=== PATIENT | female | born 1995 | race Hispanic/Latino ===

== ENCOUNTER 2018-01-21 21:20 | Emergency (ER) | payer OTHER ==
--- OUTSIDE RECORDS SUMMARY | 2018-01-21 21:23 | XMS REPORT ---
:1995 Author Organization eClinicalWorks Care Team Providers Name Role Phone Alice Nesbitt Provider Role Unavailable Allergies No Known Allergies Problems Problem Type Condition Code Onset Dates Condition Status Problem Desire for Z31.9 Active Problem BMI 45.0-49.9, adult Z68.42 Active Problem Irregular menses N92.6 Active Problem Influenza A J10.1 Active Problem Fever and chills R50.9 Active Problem Influenza B J10.1 Active Medications No Known Medications Results No Known Results Summary Purpose eClinicalWorks Submission
--- OUTSIDE RECORDS SUMMARY | 2018-01-21 21:23 | XMS REPORT ---
:1995 Author Organization eClinicalWorks Care Team Providers Name Role Phone Alice Nesbitt Provider Role Unavailable Allergies, Adverse Reactions, Alerts Substance Reaction Event Type N.K.D.A. Info Not Available Non Drug Allergy Problems Problem Type Condition Code Onset Dates Condition Status Assessment BMI 45.0-49.9, adult Z68.42 Active Problem Desire for Z31.9 Active Problem BMI 45.0-49.9, adult Z68.42 Active Problem Irregular menses N92.6 Active Problem Influenza A J10.1 Active Assessment Irregular menses N92.6 Active Problem Fever and chills R50.9 Active Problem Influenza B J10.1 Active Medications Medication Code Code Instructions Start End Date Status Dosage System Date Aurelio [facility] [id number] 1-20 MG-MCG Active 1 tablet 1/20 Orally Once a day Results No Known Results Summary Purpose eClinicalWorks Submission
--- OUTSIDE RECORDS SUMMARY | 2018-01-21 21:23 | XMS REPORT ---
:1995 Author Organization eClinicalWorks Care Team Providers Name Role Phone Alice Nesbitt Provider Role Unavailable Allergies, Adverse Reactions, Alerts Substance Reaction Event Type N.K.D.A. Info Not Available Non Drug Allergy Problems Problem Type Condition Code Onset Dates Condition Status Assessment Irregular menses N92.6 Active Assessment BMI 45.0-49.9, adult Z68.42 Active Assessment Screening for STDs (sexually Z11.3 Active transmitted diseases) Assessment Desire for Z31.9 Active Problem Desire for Z31.9 Active Problem BMI 45.0-49.9, adult Z68.42 Active Problem Irregular menses N92.6 Active Problem Influenza A J10.1 Active Assessment Well woman exam with routine Z01.419 Active gynecological exam Problem Fever and chills R50.9 Active Problem Influenza B J10.1 Active Medications No Known Medications Results No Known Results Summary Purpose eClinicalWorks Submission
--- OUTSIDE RECORDS SUMMARY | 2018-01-21 21:23 | XMS REPORT ---
:1995 Author Organization eClinicalWorks Care Team Providers Name Role Phone Alice Nesbitt Provider Role Unavailable Allergies, Adverse Reactions, Alerts Substance Reaction Event Type N.K.D.A. Info Not Available Non Drug Allergy Problems Problem Type Condition Code Onset Dates Condition Status Assessment Desire for Z31.9 Active Assessment Irregular menses N92.6 Active Assessment BMI 45.0-49.9, adult Z68.42 Active Problem Desire for Z31.9 Active Problem BMI 45.0-49.9, adult Z68.42 Active Problem Irregular menses N92.6 Active Problem Influenza A J10.1 Active Problem Fever and chills R50.9 Active Problem Influenza B J10.1 Active Medications Medication Code Code Instructions Start End Date Status Dosage System Date Aurelio [facility] [id number] 1-20 MG-MCG Active 1 tablet 1/20 Orally Once a day Results No Known Results Summary Purpose [employer] Submission
[2018-01-21 22:19] LABS: Absolute Lymphocytes (CBC) 2.8 K/uL (0.7-4.9); Absolute Monocytes 0.4 K/uL (0.1-1.3); Absolute Neutrophil 5.7 K/uL (1.8-8.0); Basophils % 0.4 % (0-1.3); Eosinophils % 1.2 % (0-4.4); Hematocrit 42.7 % (36.0-45.0); Lymphocytes % 31.1 % (15.3-44.8); MCH 31.5 pg (27.0-35.0); MCV 90.1 fL (80-100); MPV 7.3 fL (7.6-11.3); Monocytes % 4.9 % (3.3-12.3); RBC Red Blood Cell Count 4.74 M/uL (3.86-4.86)
[2018-01-21 22:47] LABS: BUN Blood Urea Nitrogen 9 mg/dL (7-18); Bicarbonate 26 mmol/L (21-32); Glucose Level 105 mg/dL (74-106); Potassium 3.5 mmol/L (3.5-5.1); Sodium Level 141 mmol/L (136-145); Troponin I < 0.02 ng/mL (0.0-0.045)
[2018-01-21 23:18] LABS: Urine Blood NEGATIVE (NEG); Urine Glucose NEGATIVE (NEG); Urine Protein NEGATIVE (NEG); Urine Specific Gravity 1.025 (1.005-1.030); Urine pH 6.5 (5.0-7.0)
[2018-01-21] MEDS ORDERED: KETOROLAC 30 MG/ML INJ ONE (23:46)
--- NOTE | 2018-01-22 00:21 | ER ---
Nurse's Notes [facility] Name: Anum Martinez Age: 22 yrs Sex: Female : 1995 Arrival Date: 01/21/2018 Time: 21:21 Bed 25 Private MD: Greyson Pace Diagnosis: Chest pain, unspecified Presentation: 01/21 21:27 Presenting complaint: Patient states: She started having chest pain, shortness of aj1 breath, nausea, and tingling in her right arm that started 30 minutes ago. Breath sounds CTA. Denies cough, congestion, fever. Reports that her pain started about 15 minutes after eating dinner. Transition of care: patient was not received from another setting of care. Onset of symptoms was January 21, 2018 at 21:00. Risk Assessment: Do you want to hurt yourself or someone else? Patient reports no desire to harm self or others. Initial Sepsis Screen: Does the patient meet any 2 criteria? HR > 90 bpm. No. Patient's initial sepsis screen is negative. Does the patient have a suspected source of infection? No. Patient's initial sepsis screen is negative. Care prior to arrival: None. 21:27 Method Of Arrival: Ambulatory aj1 21:27 Acuity: NATALI 3 aj1 Triage Assessment: 21:28 General: Appears uncomfortable, Behavior is cooperative, anxious, crying. Pain: aj1 Complains of pain in mid-sternal area Pain radiates to right arm Pain currently is 7 out of 10 on a pain scale. Quality of pain is described as tightness, numbess Pain began 30 min ago. Alleviated by nothing. Aggravated by nothing. Neuro: Level of Consciousness is awake, alert, obeys commands. Cardiovascular: Reports chest pain, nausea, palpitations, shortness of breath, Heart tones S1 S2 present Patient's skin is warm and dry. Chest pain is described as Pain is 7 out of 10 on a pain scale. quality is tightness is located in substernal area radiates to right arm(s) began 30 minutes prior to arrival. Respiratory: Reports shortness of breath Airway is patent Respiratory effort is even, unlabored, Respiratory pattern is regular, symmetrical, Breath sounds are clear bilaterally. GI: Reports nausea. ANALYST: : LMP N/A - Irregular menses aj1 Historical: - Allergies: :28 No Known Allergies; aj1 - Home Meds: 21:28 None [Active]; aj1 - PMHx: 21:28 None; aj1 - PSHx: 21:28 None; aj1 - Immunization history:: Flu vaccine is up to date. - Social history:: Smoking status: Patient/guardian denies using tobacco. - Ebola Screening: : Patient denies travel to an Ebola-affected area in the 21 days before illness onset. - Family history:: not pertinent. - Hospitalizations: : No recent hospitalization is reported. Screenin:59 Abuse screen: Denies threats or abuse. Denies injuries from another. Nutritional kr2 screening: No deficits noted. Tuberculosis screening: No symptoms or risk factors identified. Fall Risk None identified. Assessment: 21:54 General: Appears in no apparent distress. uncomfortable, obese, well groomed, Behavior kr2 is cooperative, appropriate for age, anxious. Pain: Complains of pain in mid-sternal area Pain radiates to chest and right arm Pain currently is 6 out of 10 on a pain scale. Quality of pain is described as pressure, sharp, squeezing, Is continuous, Alleviated by nothing. Aggravated by increased activity. Pain: Pain began suddenly. Neuro: Level of Consciousness is awake, alert, obeys commands, Oriented to person, place, time, situation, Appropriate for age. Cardiovascular: Heart tones S1 S2 Capillary refill < 3 seconds in bilateral fingers Patient's skin is warm and dry. Rhythm is sinus rhythm. Respiratory: Airway is patent Respiratory effort is even, labored, Respiratory pattern is regular, symmetrical, Breath sounds are clear bilaterally. the patient has mild shortness of breath. Respiratory: Reports "It feels like I can't take a deep breath and like I have to gasp". GI: Abdomen is non-distended, obese, Patient currently denies nausea. : Urine is clear. EENT: Oral mucosa is moist. Derm: Skin is intact, is healthy with good turgor, Skin is pink, warm \\T\\ dry. Musculoskeletal: Circulation, motion, and sensation intact. 22:30 Reassessment: Patient appears in no apparent distress at this time. Patient and/or kr2 family updated on plan of care and expected duration. Pain level reassessed. Patient is alert, oriented x 3, equal unlabored respirations, skin warm/dry/pink. 23:47 Reassessment: Patient appears in no apparent distress at this time. Patient and/or kr2 family updated on plan of care and expected duration. Pain level reassessed. Patient is alert, oriented x 3, equal unlabored respirations, skin warm/dry/pink. Patient states that her breathing is more comfortable but is still having pressure and tightness in the chest, medicated as ordered for pain, see MAR. 01/22 00:21 Reassessment: Patient appears in no apparent distress at this time. Patient and/or kr2 family updated on plan of care and expected duration. Pain level reassessed. Patient is alert, oriented x 3, equal unlabored respirations, skin warm/dry/pink. Patient states feeling better. 00:31 Reassessment: Patient appears in no apparent distress at this time. Patient and/or kr2 family updated on plan of care and expected duration. Pain level reassessed. Patient is alert, oriented x 3, equal unlabored respirations, skin warm/dry/pink. Patient able to breathe comfortably on room air and maintain saturations above 95% Patient denies pain at this time. Patient states feeling better. Vital Signs: 01/21 21:28 BP 141 / 89; Pulse 97; Resp 20; Temp 97.9; Pulse Ox 99% on R/A; Weight 92.53 kg (R); aj1 Height 4 ft. 10 in. (147.32 cm) (R); Pain 7/10; 23:44 BP 130 / 77; Pulse 80; Resp 16; Pulse Ox 99% on 1 lpm NC; kr2 01/22 00:31 BP 107 / 86; Pulse 96; Resp 17; Pulse Ox 99% on R/A; kr2 01/21 21:28 Body Mass Index 42.64 (92.53 kg, 147.32 cm) aj1 ED Course: 01/21 21:21 Patient arrived in ED. es 21:23 Greyson Pace MD is Private Physician. es 21:28 Triage completed. aj1 21:28 Arm band placed on Patient placed in an exam room. aj1 21:33 Maxwell Meadows MD is Attending Physician. rn 21:35 Missed attempt(s): 22 gauge in left forearm. Bleeding controlled, band aid applied, jp3 catheter tip intact. 21:45 Initial lab(s) drawn, by me, sent to lab. Urine collected: clean catch specimen, clear, jp3 kristy colored. Inserted saline lock: 22 gauge in right forearm, using aseptic technique. Blood collected. 21:48 EKG done, by ED staff, reviewed by Maxwell Meadows MD. Oxygen administration via nasal kr2 cannula \\T\\ 1L/min. 21:59 Patient has correct armband on for positive identification. Bed in low position. Call kr2 light in reach. Side rails up X 1. Adult w/ patient. color television console monitor on. Pulse ox on. NIBP on. Door closed. Warm blanket given. Head of bed elevated. 22:04 Chio Broussard, RN is Primary Nurse. kr2 22:32 Troponin I Sent. jp3 22:32 Basic Metabolic Panel Sent. jp3 22:33 D-Dimer Sent. jp3 23:38 X-ray completed. Portable x-ray completed in exam room. Patient tolerated procedure kw well. Radiology exam delayed due to [employer] DOWN. 23:40 XRAY Chest (1 view) In Process Unspecified. EDMS 01/22 00:21 Greyson Pace MD is Referral Physician. rn 00:32 No provider procedures requiring assistance completed. IV discontinued, intact, kr2 bleeding controlled, No redness/swelling at site. Pressure dressing applied. Administered Medications: 01/21 23:42 Drug: TORadol 30 mg Route: IVP; Site: right forearm; kr2 01/22 00:15 Follow up: Response: No adverse reaction; Pain is decreased kr2 Outcome: 00:21 Discharge ordered by MD. rn 00:32 Discharged to home ambulatory, with family. kr2 00:32 Condition: good 00:32 Discharge instructions given to patient, Instructed on discharge instructions, follow up and referral plans. Demonstrated understanding of instructions, follow-up care. 00:33 Patient left the ED. kr2 Signatures: Dispatcher [employer] EDVT Malia Cuevas RN RN aj1 Chitra Coleman Roman, MD MD rn Whitley, Kimberlee kw Reaves, Karey, RN RN kr2 French Pearl jp3 Corrections: (The following items were deleted from the chart) 01/21 21:59 21:54 General: Appears in no apparent distress. uncomfortable, obese, well groomed, kr2 Behavior is calm, cooperative, appropriate for age, kr2 23:46 23:44 BP 184 / 110; Pulse 84bpm; Resp 16bpm; Pulse Ox 99% RA; kr2 kr2 23:47 21:48 Patient maintains SpO2 saturation greater than 95% on room air. kr2 kr2
--- NOTE | 2018-01-22 00:21 | EDPHYS ---
Physician Documentation [facility] Name: Anum Martinez Age: 22 yrs Sex: Female : 1995 Arrival Date: 01/21/2018 Time: 21:21 Bed 25 Private MD: Greyson Pace ED Physician Maxwell Meadows HPI: 01/21 22:50 This 22 yrs old Female presents to ER via Ambulatory with complaints of Chest rn Pain, Shortness Of Breath, TINGLING IN ARM. 22:50 The patient or guardian reports chest pain that is located primarily in the anterior rn chest wall, right. The pain radiates to the right arm. Associated signs and symptoms: Pertinent positives: shortness of breath, Pertinent negatives: abdominal pain, cough, lightheadedness, nausea, near syncope, palpitations, syncope, vomiting. The chest pain is described as a heaviness. Duration: The patient or guardian reports a single episode, that is still ongoing. Modifying factors: The symptoms are alleviated by nothing. the symptoms are aggravated by palpation of area. Severity of pain: At its worst the pain was mild in the emergency department the pain is unchanged. The patient has not experienced similar symptoms in the past. REports at rest, sudden onset of right sided chest pressure, feels heavy, has tingling down right arm, no famhx of early cardiac problems, no fever/cough, feels tight and trouble breathing, no smoking, no hx of asthma. NO trauma. . 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 - Social history:: Smoking status: Patient/guardian denies using tobacco. - Ebola Screening: : Patient denies travel to an Ebola-affected area in the 21 days before illness onset. - Family history:: not pertinent. - Hospitalizations: : No recent hospitalization is reported. ROS: 22:50 Constitutional: Negative for fever, chills, and weight loss, Eyes: Negative for injury, rn pain, redness, and discharge, Neck: Negative for injury, pain, and swelling, Cardiovascular: Negative for palpitations, and edema, Respiratory: Negative for cough, wheezing, and pleuritic chest pain, Abdomen/GI: Negative for abdominal pain, nausea, vomiting, diarrhea, and constipation, MS/Extremity: Negative for injury and deformity, Skin: Negative for injury, rash, and discoloration, Neuro: Negative for headache, weakness, and seizure. Exam: 22:39 ECG was reviewed by the Attending Physician. rn 22:50 Constitutional: This is a well developed, well nourished patient who is awake, alert, rn appears anxious Head/Face: Normocephalic, atraumatic. Eyes: Pupils equal round and reactive to light, extra-ocular motions intact. Lids and lashes normal. Conjunctiva and sclera are non-icteric and not injected. Cornea within normal limits. Periorbital areas with no swelling, redness, or edema. Neck: Trachea midline, no thyromegaly or masses palpated, and no cervical lymphadenopathy. Supple, full range of motion without nuchal rigidity, or vertebral point tenderness. No Meningismus. Chest/axilla: + reproducible right sided chest tenderness, no crepitus Cardiovascular: Regular rate and rhythm with a normal S1 and S2. No gallops, murmurs, or rubs. Normal PMI, no JVD. No pulse deficits. Respiratory: Lungs have equal breath sounds bilaterally, clear to auscultation and percussion. No rales, rhonchi or wheezes noted. No increased work of breathing, no retractions or nasal flaring. Abdomen/GI: Soft, non-tender, with normal bowel sounds. No distension or tympany. No guarding or rebound. No evidence of tenderness throughout. MS/ Extremity: Pulses equal, no cyanosis. Neurovascular intact. Full, normal range of motion. Equal circumference. Neuro: Awake and alert, GCS 15, oriented to person, place, time, and situation. Cranial nerves II-XII grossly intact. Motor strength 5/5 in all extremities. Sensory grossly intact. Vital Signs: 21:28 BP 141 / 89; Pulse 97; Resp 20; Temp 97.9; Pulse Ox 99% on R/A; Weight 92.53 kg (R); aj1 Height 4 ft. 10 in. (147.32 cm) (R); Pain 7/10; 23:44 BP 130 / 77; Pulse 80; Resp 16; Pulse Ox 99% on 1 lpm NC; kr2 01/22 00:31 BP 107 / 86; Pulse 96; Resp 17; Pulse Ox 99% on R/A; kr2 01/21 21:28 Body Mass Index 42.64 (92.53 kg, 147.32 cm) aj1 MDM: 01/21 21:33 Patient medically screened. rn 01/22 00:19 Differential diagnosis: acute pericarditis, anxiety, coronary artery disease chest wall rn pain, costochondritis, esophagitis, gastritis, gastroesophageal reflux disease (GERD), pericarditis, pleurisy, pneumothorax. Data reviewed: vital signs, nurses notes, lab test result(s), EKG, radiologic studies, plain films, and as a result, I will discharge patient. Counseling: I had a detailed discussion with the patient and/or guardian regarding: the historical points, exam findings, and any diagnostic results supporting the discharge/admit diagnosis, lab results, radiology results, the need for outpatient follow up, to return to the emergency department if symptoms worsen or persist or if there are any questions or concerns that arise at home. Special discussion: Based on the patient's history, exam, and Dx evaluation, there is no indication for emergent intervention or inpatient Tx. It is understood by the patient/guardian that if the Sx's persist or worsen they need to return immediately for re-evaluation. I discussed with the patient/guardian in detail that at this point there is no indication for admission to the hospital. It is understood, however, that if the symptoms persist or worsen the patient needs to return immediately for re-evaluation. Based on the history and exam findings, there is no indication for further emergent testing or inpatient evaluation. I discussed with the patient/guardian the need to see the hot mill roller for further evaluation of the symptoms. I discussed with the patient/guardian the need to see the primary care provider for further evaluation of the symptoms. ED course: Pt improved, neg w/u here, normal trop/cxr/ecg, will dc home with ibuprofen and pcp f/u. Return precautions given and understood.. 01/21 22:03 Order name: Urine Dipstick--Ancillary (enter results); Complete Time: 23:31 mw2 01/21 22:03 Order name: Urine --Ancillary (enter results); Complete Time: 23:31 mw2 01/21 21:41 Order name: IV Start; Complete Time: 22:04 rn 01/21 21:41 Order name: EKG; Complete Time: 22:55 rn 01/21 21:41 Order name: XRAY Chest (1 view) 01/21 22:14 Order name: Basic Metabolic Panel; Complete Time: 22:49 EDMS 01/21 22:14 Order name: Troponin I; Complete Time: 22:49 EDMT 01/21 22:14 Order name: CBC with Automated Diff; Complete Time: 22:49 EDMS 01/21 22:14 Order name: D-Dimer; Complete Time: 22:49 EDMT 01/21 21:41 Order name: EKG - Nurse/Tech; Complete Time: 22:04 rn 01/21 21:41 Order name: Urine Dipstick-Ancillary (obtain specimen); Complete Time: 22:04 rn 01/21 21:41 Order name: Urine Test (obtain specimen); Complete Time: 22:04 rn EC/21 22:39 Rate is 86 beats/min. Rhythm is regular. QRS [place] is Normal. CO interval is normal. QRS rn interval is normal. QT interval is normal. No Q waves. T waves are Normal. No ST changes noted. Clinical impression: Normal ECG. Interpreted by me. Administered Medications: 23:42 Drug: TORadol 30 mg Route: IVP; Site: right forearm; kr2 01/22 00:15 Follow up: Response: No adverse reaction; Pain is decreased kr2 Disposition: 01/22/18 00:21 Discharged to Home. Impression: Chest pain, unspecified. - Condition is Stable. - Discharge Instructions: Nonspecific Chest Pain, Pain Without a Known Cause. - Medication Reconciliation Form, Thank You Letter, Antibiotic Education, Prescription Opioid Use, Work release form form. - Follow up: Greyson Pace MD; When: 2 - 3 days; Reason: Recheck today's complaints, Re-evaluation by your physician. - Problem is new. - Symptoms have improved. Signatures: Dispatcher [employer] EDMS Malia Cuevas RN RN aj1 Maxwell Meadows MD MD rn Reaves, Karey, RN RN kr2 Corrections: (The following items were deleted from the chart) 01/21 23:16 22:55 CBC+H.LAB.BRZ ordered. EDMT EDMS 23:16 22:55 BASIC METABOLIC PANEL+C.LAB.BRZ ordered. EDMT EDMS 23:16 22:55 TROPONIN (EMERG DEPT USE ONLY)+C.LAB.BRZ ordered. EDMT EDMS 23:16 22:55 D-DIMER+COAG.LAB.BRZ ordered. [facility] EDMT 01/22 00:33 00:21 01/22/2018 00:21 Discharged to Home. Impression: Chest pain, unspecified. kr2 Condition is Stable. Forms are Medication Reconciliation Form, Thank You Letter, Antibiotic Education, Prescription Opioid Use. Follow up: Greyson Pace; When: 2 - 3 days; Reason: Recheck today's complaints, Re-evaluation by your physician. Problem is new. Symptoms have improved. rn
[2018-01-22 01:13] VITALS: TEMP 97.9; O2SAT 99
[2018-01-22 01:16] VITALS: BP 107/86
--- NOTE | 2018-01-22 07:58 | RAD REPORT ---
EXAM DESCRIPTION: RAD - Chest Single View - 01/21/2018 11:42 pm CLINICAL HISTORY: Chest pain, shortness of breath COMPARISON: None. TECHNIQUE: AP portable chest image was obtained 2325 hours . FINDINGS: Lungs are clear. Heart and vasculature are normal. No measurable pleural effusion and no p neumothorax. No acute bony abnormality seen. No acute aortic findings suspected. IMPRESSION: No acute cardiopulmonary process.
--- NOTE | 2018-01-22 09:02 | EKG ---
Test Date: 2018-01-21 Test Time: 21:46:13 Roastmaster: HIPOLITO MEASUREMENT RESULTS: Intervals: Rate: 86 IL: 136 QRSD: 76 QT: 354 QTc: 423 [place]: P: 44 IL: 136 QRS: 67 T: 64 INTERPRETIVE STATEMENTS: Normal sinus rhythm Normal ECG No previous ECG available for comparison Electronically Signed On 01-22-18 09:01:33 CDT by Adalberto Figueroa
== END 2018-01-22 00:33 | disposition home or self-care (01) ==
LOC: ER 21:20
DX: R07.9 Chest pain, unspecified (principal)
CPT/HCPCS: 36415; 71045; 80048; 81003; 81025; 84484; 85025; 85379; 93005; 96374; 99285

== ENCOUNTER 2020-06-07 17:53 | Emergency (ER) | payer OTHER ==
--- OUTSIDE RECORDS SUMMARY | 2020-06-07 17:55 | XMS REPORT | Continuity of Care Document ---
:1995 Author Organization [facility] t Address [address] [place] [address] Care Team Providers Name Role Phone Peg MOBLEY Attending Clinician Haider Case MD Attending Clinician Problems Condition Condition Condition Status Onset Resolution Last Treating Co mments Source Name Details Category Date Date Treatment Clinician Date Irregular Irregular Problem Active [facility] BMI BMI Problem Active [facility] 45.0-49.9, 45.0-49.9, Osiris kes - adult adult [facility] ent [facility] Desire for Desire for Problem Active [facility] Influenza Influenza Problem Active [facility] Fever and Fever and Problem Active [facility] ch[facility]ills [facility]ics Allergies, Adverse Reactions, Alerts This patient has no known allergies or adverse reactions. Medications Ordered Filled Start Stop Current Ordering Indication Dosage Frequency Signature Comments Components Source Medication Medication Date Date Medication? Clinician (SIG) Name Name Loestrin Fe Loestrin Fe Yes Alice [address] [facility] [address] 04/22 04/22 [facility] Procedures This patient has no known procedures. Encounters Start End Encounter Admission Attending Care Care Encounter Source Date/Time Date/Time Type Type Clinicians Facility Department ID 2020-06-04 2020-06-04 Telephone Peg [facility] [id number] 00:00:00 00:00:00 Lucille Tay [id number] [place] [id number] Professio [id number] [address] 2020-06-03 2020-06-03 Office Krissy Case [facility] [id number] 12:36:02 13:49:04 Visit Haider Tay [id number] [place] [id number] Professio [id number] [address] 2017-12-01 2017-12-01 [facility] [id number] 10:30:00 10:30:00 [facility] 2017-08-04 2017-08-04 [facility] [id number] 11:00:00 11:00:00 [facility] 2017-08-03 2017-08-03 [facility] [id number] 15:50:00 15:50:00 [facility] 2017-07-27 2017-07-27 [facility] [id number] 15:00:00 15:00:00 t [facility] Results This patient has no known results.
[2020-06-07 21:01] LABS: SARS-COV-2 RT PCR POSITIVE (NEGATIVE)
--- NOTE | 2020-06-07 21:09 | ER ---
Nurse's Notes [facility] Name: Anum Martinez Age: 24 yrs Sex: Female : 1995 Arrival Date: 06/07/2020 Time: 18:05 Bed 15 Private MD: Greyson Pace Diagnosis: Coronavirus infection, unspecified Presentation: 06/07 18:40 Chief complaint: Patient states: I was exposed to family who were tested positive for ca1 covid. Symptoms started 06/05/2020. s/s runny nose, cough, congestion, headache, body aches, chills. Coronavirus screen: Client denies travel out of the [place] in the last 14 days. chills, congestion, cough unrelated to allergies, headache, muscle pain, sore throat, Client presents with at least one sign or symptom that may indicate coronavirus-19. Standard/surgical mask placed on the client. Provider contacted for isolation considerations. Ebola Screen: Patient negative for fever greater than or equal to 101.5 degrees Fahrenheit, and additional compatible Ebola Virus Disease symptoms Patient denies exposure to infectious person. Patient denies travel to an Ebola-affected area in the 21 days before illness onset. No symptoms or risks identified at this time. Initial Sepsis Screen: Does the patient meet any 2 criteria? No. Patient's initial sepsis screen is negative. Does the patient have a suspected source of infection? No. Patient's initial sepsis screen is negative. Risk Assessment: Do you want to hurt yourself or someone else? Patient reports no desire to harm self or others. Onset of symptoms was June 07, 2020. 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 - Social history:: Smoking status: Patient denies any tobacco usage or history of. Screenin:26 Abuse screen: Denies threats or abuse. Denies injuries from another. Nutritional mg2 screening: No deficits noted. Tuberculosis screening: No symptoms or risk factors identified. Fall Risk None identified. Assessment: 19:25 General: Appears in no apparent distress. comfortable, Behavior is calm, cooperative. mg2 Pain: Denies pain. Neuro: Level of Consciousness is awake, alert, obeys commands, Oriented to person, place, time, situation. Cardiovascular: Capillary refill < 3 seconds Patient's skin is warm and dry. Respiratory: Airway is patent Respiratory effort is even, unlabored, Respiratory pattern is regular, symmetrical. Respiratory: Reports cough that is. GI: No signs and/or symptoms were reported involving the gastrointestinal system. : No signs and/or symptoms were reported regarding the genitourinary system. EENT: No signs and/or symptoms were reported regarding the EENT system. Derm: Skin is intact, is healthy with good turgor, Skin is pink, warm \T\ dry. normal. Musculoskeletal: Circulation, motion, and sensation intact. Capillary refill < 3 seconds. 20:30 Reassessment: Patient appears in no apparent distress at this time. Patient and/or mg2 family updated on plan of care and expected duration. Pain level reassessed. Vital Signs: 18:40 BP 128 / 82; Pulse 106; Resp 19 S; Temp 97.6(TE); Pulse Ox 100% on R/A; Weight 93.44 kg ca1 (R); Height 4 ft. 10 in. (147.32 cm) (R); Pain 0/10; 20:30 BP 122 / 80; Pulse 95; Resp 18; Temp 98; Pulse Ox 100% on R/A; mg2 18:40 Body Mass Index 43.05 (93.44 kg, 147.32 cm) ca1 ED Course: 18:05 Patient arrived in ED. am2 18:06 Greyson Pace MD is Private Physician. am2 18:10 [facility]C [facility] kb 18:10 Eliseo Carreno MD is Attending Physician. kb 18:42 Triage completed. ca1 18:42 Arm band placed on right wrist. ca1 18:58 Flu Sent. ca1 19:10 Thor Walsh, SERG is Primary Nurse. mg2 19:26 Patient has correct armband on for positive identification. Pulse ox on. NIBP on. Door mg2 closed. 19:26 No provider procedures requiring assistance completed. Patient did not have IV access mg2 during this emergency room visit. Administered Medications: No medications were administered Outcome: 21:08 Discharge ordered by MD. klein 21:20 Discharged to home ambulatory. mg2 21:20 Condition: stable 21:20 Discharge instructions given to patient, Instructed on discharge instructions, follow up and referral plans. Demonstrated understanding of instructions, follow-up care. 21:23 Patient left the ED. mg2 Signatures: Laura Tellez, COMMUNICATIONS ASSOCIATE-C COMMUNICATIONS ASSOCIATE-CkAlbertina Gramajo am2 Thor Walsh RN RN mg2 Daiana Anderson RN RN ca1
--- NOTE | 2020-06-07 21:09 | EDPHYS ---
Physician Documentation [facility] Name: Anum Martinez Age: 24 yrs Sex: Female : 1995 Arrival Date: 06/07/2020 Time: 18:05 Bed 15 Private MD: Greyson Pace ED Physician Eliseo Carreno HPI: 06/07 20:42 This 24 yrs old Female presents to ER via Ambulatory with complaints of Covid kb symptoms, Cough. 20:43 The patient or guardian reports cough, that is intermittent, described as mild, flu kb symptoms, low-grade fever, myalgias, no appetite. Onset: The symptoms/episode began/occurred 3 day(s) ago. Severity of symptoms: At their worst the symptoms were moderate, in the emergency department the symptoms are unchanged. Modifying factors: The symptoms are alleviated by nothing, the symptoms are aggravated by nothing. Associated signs and symptoms: Pertinent positives: fever, rhinorrhea, Pertinent negatives:. The patient has not experienced similar symptoms in the past. The patient has not recently seen a physician. 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 - Social history:: Smoking status: Patient denies any tobacco usage or history of. ROS: 20:41 Cardiovascular: Negative for chest pain, palpitations, and edema, Abdomen/GI: Negative kb for abdominal pain, nausea, vomiting, diarrhea, and constipation, Back: Negative for injury and pain, MS/Extremity: Negative for injury and deformity, Skin: Negative for injury, rash, and discoloration, Neuro: Negative for headache, weakness, numbness, tingling, and seizure. 20:41 Constitutional: Positive for body aches, chills, fatigue, fever, malaise. 20:41 ENT: Positive for rhinorrhea, sinus congestion. 20:41 Respiratory: Positive for cough, Negative for dyspnea on exertion, hemoptysis, orthopnea, pleurisy, shortness of breath, sputum production, wheezing. Exam: 20:42 Constitutional: This is a well developed, well nourished patient who is awake, alert, kb and in no acute distress. Head/Face: Normocephalic, atraumatic. Chest/axilla: Normal chest wall appearance and motion. Cardiovascular: Regular rate and rhythm with a normal S1 and S2. No gallops, murmurs, or rubs. No pulse deficits. Respiratory: Lungs have equal breath sounds bilaterally, clear to auscultation. No rales, rhonchi or wheezes noted. No increased work of breathing, no retractions or nasal flaring. Abdomen/GI: Soft, non-tender, with normal bowel sounds. No distension. No guarding or rebound. No evidence of tenderness throughout. Skin: Warm, dry with normal turgor. Normal color with no rashes, no lesions, and no evidence of cellulitis. MS/ Extremity: Pulses equal, no cyanosis. Neurovascular intact. Full, normal range of motion. Neuro: Awake and alert, GCS 15, oriented to person, place, time, and situation. Cranial nerves II-XII grossly intact. Moves all extremities. Sensory grossly intact. Cerebellar exam normal. Normal gait. Vital Signs: 18:40 BP 128 / 82; Pulse 106; Resp 19 S; Temp 97.6(TE); Pulse Ox 100% on R/A; Weight 93.44 kg ca1 (R); Height 4 ft. 10 in. (147.32 cm) (R); Pain 0/10; 20:30 BP 122 / 80; Pulse 95; Resp 18; Temp 98; Pulse Ox 100% on R/A; mg2 18:40 Body Mass Index 43.05 (93.44 kg, 147.32 cm) ca1 MDM: 18:38 Patient medically screened. kb 20:41 Data reviewed: vital signs, nurses notes. Data interpreted: Pulse oximetry: on room air kb is 100 %. Interpretation: normal. Counseling: I had a detailed discussion with the patient and/or guardian regarding: the historical points, exam findings, and any diagnostic results supporting the discharge/admit diagnosis, lab results, the need for outpatient follow up, a family practitioner, to return to the emergency department if symptoms worsen or persist or if there are any questions or concerns that arise at home. 06/07 18:40 Order name: Flu kb 06/07 18:40 Order name: COVID-19 : Document "Date of Symptom Onset" if Symptomatic. kb 06/07 20:00 Order name: CORONAVIRUS EDMS 06/07 20:00 Order name: Influenza Screen (A EDMS 06/07 21:01 Order name: COVID-19/FLU A+B; Complete Time: 21:08 EDMS Administered Medications: No medications were administered Disposition: 06/08 19:51 Co-signature as Attending Physician, Eliseo Carreno MD I agree with the assessment and luly plan of care. Disposition: 06/07/20 21:08 Discharged to Home. Impression: Coronavirus infection, unspecified. - Condition is Stable. - Discharge Instructions: Viral Respiratory Infection, [id number], COVID-19. - Medication Reconciliation Form, Thank You Letter, Antibiotic Education, Prescription Opioid Use, Work release form form. - Follow up: Emergency Department; When: As needed; Reason: Worsening of condition. Follow up: Private Physician; When: 2 - 3 days; Reason: Recheck today's complaints, Continuance of care, Re-evaluation by your physician. Signatures: Dispatcher [employer] Laura Guerrero, MURTAZA-Dalia HAUSER-Eliseo Ortiz MD MD cha Gardose, Michele, RN RN mg2 Daiana Anderson RN RN ca1 Corrections: (The following items were deleted from the chart) 06/07 21:23 21:08 06/07/2020 21:08 Discharged to Home. Impression: Coronavirus infection, mg2 unspecified. Condition is Stable. Forms are Medication Reconciliation Form, Thank You Letter, Antibiotic Education, Prescription Opioid Use. Follow up: Emergency Department; When: As needed; Reason: Worsening of condition. Follow up: Private Physician; When: 2 - 3 days; Reason: Recheck today's complaints, Continuance of care, Re-evaluation by your physician. kb
[2020-06-07 22:39] VITALS: BP 128/82; TEMP 97.6; O2SAT 100
== END 2020-06-07 21:23 | disposition home or self-care (01) ==
LOC: ER 17:53
DX: U07.1 COVID-19 (principal)
CPT/HCPCS: 0240U; 99283

== ENCOUNTER 2020-06-13 07:17 | Emergency (ER) | payer OTHER ==
--- OUTSIDE RECORDS SUMMARY | 2020-06-13 07:20 | XMS REPORT | Continuity of Care Document ---
:1995 Author Organization [facility] t Address [address] [place] [address] Care Team Providers Name Role Phone Peg MOBLEY Attending Clinician Haider Case MD Attending Clinician Problems Condition Condition Condition Status Onset Resolution Last Treating Co mments Source Name Details Category Date Date Treatment Clinician Date Irregular Irregular Problem Active [facility] Clin[facility] BMI BMI Problem Active [facility] 45.0-49.9, 45.0-49.9, Osiris kes - adult adult [facility] ent [facility] Desire for Desire for Problem Active [facility] Influenza Influenza Problem Active [facility] Fever and Fever and Problem Active [facility]ills [facility] Clinics Allergies, Adverse Reactions, Alerts This patient has no known allergies or adverse reactions. Medications Ordered Filled Start Stop Current Ordering Indication Dosage Frequency Signature Comments Components Source Medication Medication Date Date Medication? Clinician (SIG) Name Name Loestrin Fe Loestrin Fe Yes Alice [address] 04/22 04/[address] [facility] Procedures This patient has no known procedures. Encounters Start End Encounter Admission Attending Care Care Encounter Source Date/Time Date/Time Type Type Clinicians Facility Department ID 2020-06-04 2020-06-04 Telephone Peg [facility] [id number] 00:00:00 00:00:00 Lucille Tay [id number] [place] [id number] Professio [id number] [address] 2020-06-03 2020-06-03 Office Krissy Case [facility] [id number] 12:36:02 13:49:04 Visit Haider Tay [id number] [place] [id number] Professio [id number] [address] 2017-12-01 2017-12-01 [facility] [id number] 10:30:00 10:30:00 [facility] 2017-08-04 2017-08-04 [facility] [id number] [address] 11:00:00 11:00:00 [facility] 2017-08-03 2017-08-03 [facility] [id number] 15:50:00 15:50:00 [facility] 2017-07-27 2017-07-27 [facility] [id number] 15:00:00 15:00:00 [facility] Results This patient has no known results.
[2020-06-13] MEDS ORDERED: IBUPROFEN 400 MG TAB ONE (08:03)
--- NOTE | 2020-06-13 08:26 | EDPHYS ---
Physician Documentation [facility] Name: Anum Martinez Age: 24 yrs Sex: Female : 1995 Arrival Date: 06/13/2020 Time: 07:19 Bed 19 Private MD: ED Physician Kadeem Baumann HPI: 06/13 17:33 This 24 yrs old Female presents to ER via Ambulatory with complaints of Cough, tw4 Chest Pain. 17:33 The patient or guardian reports cough. Onset: The symptoms/episode began/occurred tw4 today. Severity of symptoms: At their worst the symptoms were moderate, in the emergency department the symptoms are unchanged. The patient has not experienced similar symptoms in the past. Historical: - Allergies: 07:46 No Known Allergies; ss - PSHx: 07:46 None; ss - Immunization history:: Adult Immunizations up to date. - Social history:: Smoking status: Patient denies any tobacco usage or history of. ROS: 17:33 Constitutional: Negative for fever, chills, and weight loss, Eyes: Negative for injury, tw4 pain, redness, and discharge, Cardiovascular: Negative for chest pain, palpitations, and edema, Abdomen/GI: Negative for abdominal pain, nausea, vomiting, diarrhea, and constipation, Back: Negative for injury and pain, MS/Extremity: Negative for injury and deformity, Skin: Negative for injury, rash, and discoloration, Neuro: Negative for headache, weakness, numbness, tingling, and seizure. 17:33 Respiratory: Positive for cough, shortness of breath. Exam: 17:35 Constitutional: This is a well developed, well nourished patient who is awake, alert, tw4 and in no acute distress. Head/Face: Normocephalic, atraumatic. Chest/axilla: Normal chest wall appearance and motion. Nontender with no deformity. No lesions are appreciated. Cardiovascular: Regular rate and rhythm with a normal S1 and S2. No gallops, murmurs, or rubs. Normal PMI, no JVD. No pulse deficits. Respiratory: Lungs have equal breath sounds bilaterally, clear to auscultation and percussion. No rales, rhonchi or wheezes noted. No increased work of breathing, no retractions or nasal flaring. Abdomen/GI: Soft, non-tender, with normal bowel sounds. No distension or tympany. No guarding or rebound. No evidence of tenderness throughout. Back: No spinal tenderness. No costovertebral tenderness. Full range of motion. Skin: Warm, dry with normal turgor. Normal color with no rashes, no lesions, and no evidence of cellulitis. MS/ Extremity: Pulses equal, no cyanosis. Neurovascular intact. Full, normal range of motion. Neuro: Awake and alert, GCS 15, oriented to person, place, time, and situation. Cranial nerves II-XII grossly intact. Motor strength 5/5 in all extremities. Sensory grossly intact. Cerebellar exam normal. Normal gait. Vital Signs: 07:39 BP 147 / 95; Pulse 116; Resp 18; Temp 103(O); Pulse Ox 97% on R/A; Weight 90.26 kg; ss Height 4 ft. 10 in. (147.32 cm); Pain 9/10; 08:20 BP 137 / 95; Pulse 109; Resp 22; Pulse Ox 94% on R/A; Pain 4/10; bw 08:56 BP 110 / 80; Pulse 101; Temp 101.9; Pulse Ox 99% ; ss 07:39 Body Mass Index 41.59 (90.26 kg, 147.32 cm) ss MDM: 07:29 Patient medically screened. tw4 17:35 Differential Diagnosis: Obstructed Airway Bronchitis Upper Respiratory Infection. Data tw4 reviewed: vital signs, nurses notes. Data interpreted: Pulse oximetry: Interpretation: normal. Counseling: I had a detailed discussion with the patient and/or guardian regarding: the historical points, exam findings, and any diagnostic results supporting the discharge/admit diagnosis. Special discussion: I discussed with the patient/guardian in detail that at this point there is no indication for admission to the hospital. It is understood, however, that if the symptoms persist or worsen the patient needs to return immediately for re-evaluation. 06/13 07:31 Order name: COVID-19 : Document "Date of Symptom Onset" if Symptomatic. tw4 06/13 07:31 Order name: CXR XRAY tw4 Administered Medications: 07:47 Drug: Motrin 800 mg Route: PO; bw Disposition: 06/13/20 08:26 Discharged to Home. Impression: Coronavirus infection, unspecified, Cough, Chest wall pain. - Condition is Stable. - Discharge Instructions: Upper Respiratory Infection, Adult, Cough, Adult, COVID-19. - Prescriptions for Ibuprofen 800 mg Oral Tablet - take 1 tablet by ORAL route every 8 hours As needed take with food; 30 tablet. Albuterol Sulfate 90 mcg/actuation - inhale 1-2 puff by INHALATION route every 4-6 hours; 1 Inhaler. - Medication Reconciliation Form, Thank You Letter, Antibiotic Education, Prescription Opioid Use form. - Follow up: Private Physician; When: Upon discharge from the Emergency Department; Reason: Recheck today's complaints, Continuance of care, Re-evaluation by your physician. - Problem is new. - Symptoms have improved. Signatures: Dispatcher [employer] EDMS Sabrina Pedro RN RN Aleena Batista RN RN Kadeem Cuellar MD MD tw4 Armas, SERG Gilmore RN Corrections: (The following items were deleted from the chart) 09:00 08:26 06/13/2020 08:26 Discharged to Home. Impression: Coronavirus infection, hb unspecified; Cough; Chest wall pain. Condition is Stable. Forms are Medication Reconciliation Form, Thank You Letter, Antibiotic Education, Prescription Opioid Use. Follow up: Private Physician; When: Upon discharge from the Emergency Department; Reason: Recheck today's complaints, Continuance of care, Re-evaluation by your physician. Problem is new. Symptoms have improved. tw4
--- NOTE | 2020-06-13 08:26 | ER ---
Nurse's Notes [facility] Name: Anum Martinez Age: 24 yrs Sex: Female : 1995 Arrival Date: 06/13/2020 Time: 07:19 Bed 19 Private MD: Diagnosis: Coronavirus infection, unspecified;Cough;Chest wall pain Presentation: 06/13 07:39 Chief complaint: Patient states: + COVID on Monday. Pt c/o painful cough/ chest pain. ss Tylenol last taken at 11 PM last night. Coronavirus screen: Client denies travel out of the [place] in the last 14 days. Ebola Screen: Patient denies exposure to infectious person. Patient denies travel to an Ebola-affected area in the 21 days before illness onset. Initial Sepsis Screen: Does the patient meet any 2 criteria? No. Patient's initial sepsis screen is negative. Does the patient have a suspected source of infection? No. Patient's initial sepsis screen is negative. Risk Assessment: Do you want to hurt yourself or someone else? Patient reports no desire to harm self or others. Onset of symptoms was June 2020. 07:39 Method Of Arrival: Ambulatory ss 07:39 Acuity: NATALI 4 ss Triage Assessment: 08:55 General: Appears in no apparent distress. uncomfortable, Behavior is calm, cooperative, ss appropriate for age. Pain: Complains of pain in on inspiration. Historical: - Allergies: 07:46 No Known Allergies; ss - PSHx: 07:46 None; ss - Immunization history:: Adult Immunizations up to date. - Social history:: Smoking status: Patient denies any tobacco usage or history of. Screenin:20 Abuse screen: Denies threats or abuse. Nutritional screening: No deficits noted. bw Tuberculosis screening: No symptoms or risk factors identified. Fall Risk None identified. Assessment: 08:20 Pain: Complains of pain in Pain on inspiration. Pain does not radiate. Pain began 1 day bw ago. Neuro: No deficits noted. Cardiovascular: Reports fatigue, shortness of breath, Patient's skin is warm and dry. Respiratory: No deficits noted. Respiratory: Reports cough that is Airway is patent Breath sounds are diminished in left lower lobe, right lower lobe, left posterior lower lobe and right posterior lower lobe. GI: No deficits noted. : No deficits noted. EENT: No deficits noted. Vital Signs: 07:39 BP 147 / 95; Pulse 116; Resp 18; Temp 103(O); Pulse Ox 97% on R/A; Weight 90.26 kg; ss Height 4 ft. 10 in. (147.32 cm); Pain 9/10; 08:20 BP 137 / 95; Pulse 109; Resp 22; Pulse Ox 94% on R/A; Pain 4/10; bw 08:56 BP 110 / 80; Pulse 101; Temp 101.9; Pulse Ox 99% ; ss 07:39 Body Mass Index 41.59 (90.26 kg, 147.32 cm) ED Course: 07:19 Patient arrived in ED. mr 07:29 Kadeem Baumann MD is Attending Physician. tw4 07:45 Triage completed. ss 07:46 Arm band placed on right wrist. 07:47 Deirdre Armas RN is Primary Nurse. 08:06 CXR XRAY In Process Unspecified. EDMS 08:20 Patient has correct armband on for positive identification. Call light in reach. Side bw rails up X 1. hall monitor on. Pulse ox on. NIBP on. 08:20 No provider procedures requiring assistance completed. Patient did not have IV access bw during this emergency room visit. Patient maintains SpO2 saturation greater than 95% on room air. Administered Medications: 07:47 Drug: Motrin 800 mg Route: PO; bw Outcome: 08:26 Discharge ordered by . tw4 08:55 Discharged to home 08:55 Condition: stable 08:55 Discharge instructions given to patient, Instructed on discharge instructions. 09:00 Patient left the ED. hb Signatures: Dispatcher [employer] EDNY Leigh Horta Shelby, SERG ULRICH Aleena Batista RN RN Kadeem Baumann MD MD [facility] Deirdre Armas RN RN
[2020-06-13 09:10] VITALS: BP 110/80; TEMP 101.9; O2SAT 99
--- NOTE | 2020-06-13 10:27 | RAD REPORT ---
EXAM DESCRIPTION: RAD - Chest Single View - 06/13/2020 8:06 am CLINICAL HISTORY: COUGH Chest pain. COMPARISON: Chest Single View dated 01/21/2018 FINDINGS: Portable technique limits examination quality. The lungs are grossly clear. The heart is normal in size. No displaced fractures. IMPRESSION: No acute intrathoracic process suspected.
== END 2020-06-13 09:00 | disposition home or self-care (01) ==
LOC: ER 07:17
DX: U07.1 COVID-19 (principal); R07.89 Other chest pain
CPT/HCPCS: 71045; 99284

== ENCOUNTER 2020-07-08 10:43 | Inpatient (IN) | payer OTHER ==
--- OUTSIDE RECORDS SUMMARY | 2020-07-08 10:46 | XMS REPORT | Continuity of Care Document ---
:1995 Author Organization [facility] t Address [address] [place] [address] Care Team Providers Name Role Phone Kristian Lorenzo DO Attending Clinician Nam ULRICH, M Attending Clinician Doctor Unassigned, Name Attending Clinician Unavailable Peg MOBLEY Attending Clinician Haider Case MD Attending Clinician Problems Condition Condition Condition Status Onset Resolution Last Treating Co mments Source Name Details Category Date Date Treatment Clinician Date Irregular Irregular Problem Active [facility] BMI BMI Problem Active [facility] 45.0-49.9, 45.0-49.9, Osiris kes - adult adult [facility] Desire for Desire for Problem Active [facility] Influenza Influenza Problem [facility] Fever and Fever and Problem Active [facility] chills chills [facility] Allergies, Adverse Reactions, Alerts This patient has no known allergies or adverse reactions. Medications Ordered Filled Start Stop Current Ordering Indication Dosage Frequency Signature Comments Components Source Medication Medication Date Date Medication? Clinician (SIG) Name Name Loestrin Fe Loestrin Fe Yes Alice [address] [facility] [address] 04/22 04/22 Delicia Peterson [facility] Procedures This patient has no known procedures. Encounters Start End Encounter Admission Attending Care Care Encounter Source Date/Time Date/Time Type Type Clinicians Facility Department ID 2020-06-23 2020-06-23 Patient Bj [facility] [id number] 00:00:00 00:00:00 [facility] [place] [id number] [facility] [id number] [place] [id number] 2020-06-22 2020-06-22 Transition Viki Browning [id number] 00:00:00 00:00:00 of Care Beatrice Gannon [id number] [place] [id number] 2020-06-15 2020-06-15 Orders Doctor FLAQUITO [id number] 00:00:00 00:00:00 Only Unassigned, CEDRIC [id number] [place] [facility] [id number] 2020-06-04 2020-06-04 Telephone Peg [facility] [id number] 00:00:00 00:00:00 Lucille Jasvir [id number] [place] [id number] Professio [id number] [address] 2020-06-03 2020-06-03 Office Krissy Case [facility] [id number] 12:36:02 13:49:04 Visit Haider Tay [id number] [place] [id number] Professio [id number] [address] 2017-12-01 2017-12-01 Outpatient Annabel Ibarra [id number] [facility] [address] 10:30:00 10:30:00 [facility] Out[facility] Clinics 2017-08-04 2017-08-04 Outpatient Annabel Ibarra [id number] [facility] 11:00[facility]00 11:00:00 [facility] 2017-08-03 2017-08-03 Outpatient Annabel Ibarra [id number] [facility] [address] 15:50:00 15:50:00 [facility] 2017-07-27 2017-07-27 Outpatient Annabel Ibarra [id number] [facility] 15:00:00 15:00:00 [facility] Results This patient has no known results.
--- NOTE | 2020-07-08 11:08 | RAD REPORT ---
EXAM DESCRIPTION: CT - Ct Stroke Brain Wo Cont - 07/08/2020 11:01 am CLINICAL HISTORY: Left-sided weakness COMPARISON: None. TECHNIQUE: Computed axial tomography of the head was obtained. IV contrast was not requested. All CT scans are performed using dose optimization technique as appropriate and may include automated exposure control or mA/KV adjustment according to patient size. FINDINGS: An intracranial bleed is not seen . The ventricles are normal in caliber. No extra-axial fluid collection is noted. Fluid within the sinuses/ mastoids is not seen. IMPRESSION: No acute intracranial abnormality is seen. If patient's symptoms persist MRI of the bra in would be recommended. Dr. Meadows was notified 11:04 a.m. July 08, 2020
--- NOTE | 2020-07-08 11:29 | RAD REPORT ---
EXAM DESCRIPTION: CTHead angio07/08/2020 11:17 am CLINICAL HISTORY: Numbness COMPARISON: None TECHNIQUE: CT angiogram of the head was obtained. 3D MIPS reconstruction performed. All CT scans are performed using dose optimization technique as appropriate and may include automated exposure control or mA/KV adjustment according to patient size. FINDINGS: The basilar, internal carotid, anterior cerebral, middle cerebral and posterior cerebral a rteries are normal caliber. An aneurysm is not seen. A significant stenosis is not noted. IMPRESSION: Unremarkable CT angiogram head.
[2020-07-08 11:30] LABS: Basophils % 1.2 % (0-1.3); Hematocrit 40.8 % (36.0-45.0); Lymphocytes % 24.4 % (15.3-44.8); MPV 7.5 fL (7.6-11.3)
[2020-07-08 11:37] LABS: Protime INR 0.92
[2020-07-08 11:46] LABS: BUN Blood Urea Nitrogen 8 mg/dL (7-18); Bicarbonate 25 mmol/L (21-32); Creatine Phosphokinase 38 U/L (26-192); Glucose Level 87 mg/dL (74-106); Magnesium 1.9 mg/dL (1.8-2.4); Potassium 3.8 mmol/L (3.5-5.1); Sodium Level 138 mmol/L (136-145); Troponin (Emerg Dept Use Only) < 0.02 ng/mL (0.0-0.045)
[2020-07-08] MEDS ORDERED: ALTEPLASE 100 ML IV ONE (11:56)
--- NOTE | 2020-07-08 12:05 | ER ---
Nurse's Notes [facility] Name: Anum Martinez Age: 24 yrs Sex: Female : 1995 Arrival Date: 07/08/2020 Time: 10:46 Bed 5 Private MD: Diagnosis: Weakness;Paresthesia of skin;Facial weakness;Cerebral infarction Presentation: 07/08 10:50 Chief complaint: Patient states: diagnosed with COVID pneumonia a month ago, has been iw been on home O2, was getting ready without her O2, started feeling SOB, weak, reports feeling more weak on left side of body, feels like her left side of face is drooping, reports feeling numbness in left arm and leg, tingling in all four extremities but worse on left side , symptoms started approx 1 hour [employer]. Coronavirus screen: Client presents with at least one sign or symptom that may indicate coronavirus-19. Client reports previous positive COVID test result. Ebola Screen: Patient negative for fever greater than or equal to 101.5 degrees Fahrenheit, and additional compatible Ebola Virus Disease symptoms Patient denies exposure to infectious person. Patient denies travel to an Ebola-affected area in the 21 days before illness onset. No symptoms or risks identified at this time. 10:50 Method Of Arrival: EMS: [facility] iw 11:01 An acute neurological deficit is present. The patients blood glucose was checked before iw arriving to the hospital and was found to be normal. Initial Sepsis Screen: Does the patient meet any 2 criteria? No. Patient's initial sepsis screen is negative. Does the patient have a suspected source of infection? No. Patient's initial sepsis screen is negative. Risk Assessment: Do you want to hurt yourself or someone else? Patient reports no desire to harm self or others. Onset of symptoms was July 08, 2020 at 10:00. 11:01 Acuity: NATALI 2 iw Stroke Activation: Symptom onset < 3 hours Physician: Stroke Attending; Name: N/A; Notified At: 10:55; Arrived At: N/A Physician: Chief Stroke Resident; Name: N/A; Notified At: 10:55; Arrived At: N/A Physician: Stroke Resident; Name: N/A; Notified At: 10:55; Arrived At: N/A Physician: ED Attending; Name: Dr. Meadows; Notified At: 10:55; Arrived At: 10:55 Physician: ED Resident; Name: N/A; Notified At: 10:55; Arrived At: N/A Historical: - Allergies: 13:01 No Known Allergies; ss - Home Meds: 13:01 aspirin 81 mg Oral chew 1 tab once daily [Active]; ss - PMHx: 13:01 Home O2 2-3 L NC s/p COVID; ss - PSHx: 13:01 None; ss - Immunization history:: Adult Immunizations up to date. - Family history:: not pertinent. - Social history:: Smoking status: Patient denies any tobacco usage or history of. - Hospitalizations: : Patient was recently seen at. Screenin:22 Abuse screen: Denies threats or abuse. Denies injuries from another. Nutritional ss screening: No deficits noted. Tuberculosis screening: Never had TB. Fall Risk No fall in past 12 months (0 pts). Secondary diagnosis (15 points) impaired mobility, IV access (20 points). Ambulatory Aid- None/Bed Rest/Nurse Assist (0 pts). Gait- Normal/Bed Rest/Wheelchair (0 pts) Mental Status- Oriented to own ability (0 pts). Assessment: 11:05 VAN Scoring: Arm Drift:. iw 11:22 Reassessment: PT is back from CT. Dr. Meadows at bedside. ss 11:22 General: Appears uncomfortable, Behavior is calm, cooperative, anxious, Reports fatigue ss for 0-12 hours. Pain: Denies pain. Neuro: Level of Consciousness is awake, obeys commands, lethargic, Oriented to person, place, time, situation, Director Cardiology are weak on left Weakness in left arm(s) leg(s) Speech is normal, Facial symmetry appears normal, Pupils are PERRLA, Tingling in left arm, left leg and mouth Denies blurred vision dizziness, headache. Cardiovascular: Capillary refill < 3 seconds is brisk in bilateral fingers. GI: Patient currently denies diarrhea, nausea, vomiting. : No signs and/or symptoms were reported regarding the genitourinary system. Denies burning with urination, incontinence. EENT: Nares are clear Oral mucosa is moist. Throat is clear. Derm: Skin is intact, is healthy with good turgor, Skin is dry, Skin is pink, warm \T\ dry. normal. 12:20 Reassessment: No changes from previously documented assessment. Patient denies pain at this time. Neuro: Level of Consciousness is awake, obeys commands, lethargic, Oriented to person, place, time, situation, Director Cardiology are weak on left Weakness in left arm(s) leg(s) Speech is normal, Facial symmetry appears normal, Pupils are PERRLA. 12:54 Patient has been NPO before screening. The patient is not alert and/or unable to follow commands. Bedside swallow screen discontinued. Patient kept NPO until cleared by Speech Therapy or Physician. The patient failed the bedside swallow screening. The patient will be kept NPO until cleared by Speech Therapy or Physician. Provider notified of bedside swallow screening results: Maxwell Meadows MD. T-PA (Activase) Screening: Indications: Definite evidence of stroke, ischemic, embolic, or hypertensive: Yes. 12:54 Reassessment: TPA completed. No improvements as of now. Mother at bedside. Patient is aware of admission for further evaluation and treatment. NIHSS 4. Respiratory: Airway is patent Respiratory effort is even, unlabored, Respiratory pattern is regular, symmetrical. 14:00 Reassessment: SEE [facility] \T\ VS/ TPA NIHSS flowsheet FOR FURTHER DOCUMENTATION. 07/09 07:30 Reassessment: PT MOVED TO ICU WITH DEYVI ULRICH. bp Vital Signs: 07/08 10:50 BP 141 / 96; Pulse 100; Resp 18 S; Temp 98.6; Pulse Ox 100% on 3 lpm NC; iw 11:22 Pulse Ox 100% ; Pain 0/10; ss 11:43 Weight 95.62 kg (M); jd3 11:53 BP 106 / 72; Pulse 74; ss 12:08 BP 112 / 74; Pulse 73; ss 12:23 BP 117 / 73; Pulse 87; ss 12:38 BP 118 / 74; Pulse 78; ss 12:43 BP 121 / 93; Pulse 87; Resp 20; Pulse Ox 100% on 2 lpm NC; Pain 0/10; ss 11:22 100% on RA. Pt requesting O2 as she feels short of breath and has home O2 at 3 L NC Kemmerer Coma Score: 10:55 Eye Response: spontaneous(4). Verbal Response: oriented(5). Motor Response: obeys rn commands(6). Total: 15. NIH Stroke Scale Scores: 10:55 NIHSS Score: 4 rn 11:07 NIHSS Score: 4 iw 11:53 NIHSS Score: 2 ss 12:08 NIHSS Score: 2 ss 12:23 NIHSS Score: 2 ss 12:38 NIHSS Score: 4 ss 12:43 NIHSS Score: 4 ss ED Course: 10:46 Patient arrived in ED. am2 10:52 Maxwell Meadows MD is Attending Physician. rn 10:59 Arm band placed on. iw 11:01 Triage completed. iw 11:02 CT Stroke Brain w/o Contrast In Process Unspecified. EDMS 11:12 Inserted saline lock: 22 gauge in right forearm, using aseptic technique. ,using ss aseptic technique. Insertion completed in CT scan Blood collected. Oxygen administration via nasal cannula \T\ 2L/min. 11:17 CT Head Angio In Process Unspecified. EDMS 11:22 Patient has correct armband on for positive identification. Bed in low position. Call ss light in reach. 11:40 Stroke CXR 1 View In Process Unspecified. EDMS 12:04 Christiano Blount MD is Hospitalizing Provider. rn 12:05 Inserted saline lock: 20 gauge in left antecubital area, using aseptic technique. em1 12:43 No provider procedures requiring assistance completed. Patient admitted, IV remains in ss place. 12:56 Sabrina Pedro, SERG is Primary Nurse. ss Administered Medications: 11:53 Drug: ACTIvase (alteplase) {Co-Signature: jd3 (Cam Bergeron RN).} {Note: Bolus dose: ss 8.6 Infusion dose: 77.4 mg.} Route: IV Thrombolytics; Rate: calculated rate; Infused Over: 60 mins; 11:54 Follow up: Response: No adverse reaction ss 12:54 Follow up: Response: completed infusion ss 16:44 Drug: foLIC Acid 1 mg Route: IVPB; Site: right antecubital; ss 16:50 Follow up: IV Status: Completed infusion ss Outcome: 12:04 Decision to Hospitalize by Provider. rn 12:54 Instructed on the need for admit. ss 14:00 Admitted to ER Hold. Please see [facility] for further documentation. ss 14:00 Condition: good 07/09 07:42 Patient left the ED. bp NIH Stroke Scale - NIH Stroke Score Date: 07/08/2020 Time: 10:55 Total Score = 4 1a. Level of Consciousness (LOC) - 0(Alert) 1b. Level of Consciousness (LOC) (Year \T\ Age) - 0(Both) 1c. LOC Commands (Open \T\ Closes Eyes/Social Media Director) - 0(Both) 2. Best Gaze (Lateral Gaze Paresis) - 0(Normal) 3. Visual Field Loss - 0(No visual loss) 4. Facial Palsy - 1(Minor Paralysis) 5a. Left Arm: Motor (10-second hold) - 1(Drift) 5b. Right Arm: Motor (10-second hold) - 0(No drift) 6a. Left Leg: Motor (5-second hold - always test supine) - 1(Drift) 6b. Right Leg: Motor (5-second hold - always test supine) - 0(No drift) 7. Limb Ataxia (finger/nose \T\ heel/tobias - test with eyes open) - 0(Absent) 8. Sensory Loss (pinprick arms/legs/face) - 1(Mild to moderate loss) 9. Best Language: Aphasia (description/naming/reading) - 0(No aphasia) 10. Dysarthria (speech clarity - read or repeat words) - 0(Normal) 11. Extinction and Inattention (visual/tactile/auditory/spatial/personal) - 0(No abnormality) Initials: rn NIH Stroke Scale - NIH Stroke Score Date: 07/08/2020 Time: 11:07 Total Score = 4 1a. Level of Consciousness (LOC) - 0(Alert) 1b. Level of Consciousness (LOC) (Year \T\ Age) - 0(Both) 1c. LOC Commands (Open \T\ Closes Eyes/Social Media Director) - 0(Both) 2. Best Gaze (Lateral Gaze Paresis) - 0(Normal) 3. Visual Field Loss - 0(No visual loss) 4. Facial Palsy - 1(Minor Paralysis) 5a. Left Arm: Motor (10-second hold) - 1(Drift) 5b. Right Arm: Motor (10-second hold) - 0(No drift) 6a. Left Leg: Motor (5-second hold - always test supine) - 1(Drift) 6b. Right Leg: Motor (5-second hold - always test supine) - 0(No drift) 7. Limb Ataxia (finger/nose \T\ heel/tobias - test with eyes open) - 0(Absent) 8. Sensory Loss (pinprick arms/legs/face) - 1(Mild to moderate loss) 9. Best Language: Aphasia (description/naming/reading) - 0(No aphasia) 10. Dysarthria (speech clarity - read or repeat words) - 0(Normal) 11. Extinction and Inattention (visual/tactile/auditory/spatial/personal) - 0(No abnormality) Initials: NIH Stroke Scale - NIH Stroke Score Date: 07/08/2020 Time: 11:53 Total Score = 2 1a. Level of Consciousness (LOC) - 1(Not Alert) 1b. Level of Consciousness (LOC) (Year \T\ Age) - 0(Both) 1c. LOC Commands (Open \T\ Closes Eyes/Social Media Director) - 0(Both) 2. Best Gaze (Lateral Gaze Paresis) - 0(Normal) 3. Visual Field Loss - 0(No visual loss) 4. Facial Palsy - 0(Normal) 5a. Left Arm: Motor (10-second hold) - 0(No drift) 5b. Right Arm: Motor (10-second hold) - 0(No drift) 6a. Left Leg: Motor (5-second hold - always test supine) - 0(No drift) 6b. Right Leg: Motor (5-second hold - always test supine) - 0(No drift) 7. Limb Ataxia (finger/nose \T\ heel/tobias - test with eyes open) - 0(Absent) 8. Sensory Loss (pinprick arms/legs/face) - 1(Mild to moderate loss) 9. Best Language: Aphasia (description/naming/reading) - 0(No aphasia) 10. Dysarthria (speech clarity - read or repeat words) - 0(Normal) 11. Extinction and Inattention (visual/tactile/auditory/spatial/personal) - 0(No abnormality) Initials: NIH Stroke Scale - NIH Stroke Score Date: 07/08/2020 Time: 12:08 Total Score = 2 1a. Level of Consciousness (LOC) - 1(Not Alert) 1b. Level of Consciousness (LOC) (Year \T\ Age) - 0(Both) 1c. LOC Commands (Open \T\ Closes Eyes/Social Media Director) - 0(Both) 2. Best Gaze (Lateral Gaze Paresis) - 0(Normal) 3. Visual Field Loss - 0(No visual loss) 4. Facial Palsy - 0(Normal) 5a. Left Arm: Motor (10-second hold) - 0(No drift) 5b. Right Arm: Motor (10-second hold) - 0(No drift) 6a. Left Leg: Motor (5-second hold - always test supine) - 0(No drift) 6b. Right Leg: Motor (5-second hold - always test supine) - 0(No drift) 7. Limb Ataxia (finger/nose \T\ heel/tobias - test with eyes open) - 0(Absent) 8. Sensory Loss (pinprick arms/legs/face) - 1(Mild to moderate loss) 9. Best Language: Aphasia (description/naming/reading) - 0(No aphasia) 10. Dysarthria (speech clarity - read or repeat words) - 0(Normal) 11. Extinction and Inattention (visual/tactile/auditory/spatial/personal) - 0(No abnormality) Initials: NIH Stroke Scale - NIH Stroke Score Date: 07/08/2020 Time: 12:23 Total Score = 2 1a. Level of Consciousness (LOC) - 1(Not Alert) 1b. Level of Consciousness (LOC) (Year \T\ Age) - 0(Both) 1c. LOC Commands (Open \T\ Closes Eyes/Social Media Director) - 0(Both) 2. Best Gaze (Lateral Gaze Paresis) - 0(Normal) 3. Visual Field Loss - 0(No visual loss) 4. Facial Palsy - 0(Normal) 5a. Left Arm: Motor (10-second hold) - 0(No drift) 5b. Right Arm: Motor (10-second hold) - 0(No drift) 6a. Left Leg: Motor (5-second hold - always test supine) - 0(No drift) 6b. Right Leg: Motor (5-second hold - always test supine) - 0(No drift) 7. Limb Ataxia (finger/nose \T\ heel/tobias - test with eyes open) - 0(Absent) 8. Sensory Loss (pinprick arms/legs/face) - 1(Mild to moderate loss) 9. Best Language: Aphasia (description/naming/reading) - 0(No aphasia) 10. Dysarthria (speech clarity - read or repeat words) - 0(Normal) 11. Extinction and Inattention (visual/tactile/auditory/spatial/personal) - 0(No abnormality) Initials: NIH Stroke Scale - NIH Stroke Score Date: 07/08/2020 Time: 12:38 Total Score = 4 1a. Level of Consciousness (LOC) - 1(Not Alert) 1b. Level of Consciousness (LOC) (Year \T\ Age) - 0(Both) 1c. LOC Commands (Open \T\ Closes Eyes/Social Media Director) - 0(Both) 2. Best Gaze (Lateral Gaze Paresis) - 0(Normal) 3. Visual Field Loss - 0(No visual loss) 4. Facial Palsy - 0(Normal) 5a. Left Arm: Motor (10-second hold) - 1(Drift) 5b. Right Arm: Motor (10-second hold) - 0(No drift) 6a. Left Leg: Motor (5-second hold - always test supine) - 1(Drift) 6b. Right Leg: Motor (5-second hold - always test supine) - 0(No drift) 7. Limb Ataxia (finger/nose \T\ heel/tobias - test with eyes open) - 0(Absent) 8. Sensory Loss (pinprick arms/legs/face) - 1(Mild to moderate loss) 9. Best Language: Aphasia (description/naming/reading) - 0(No aphasia) 10. Dysarthria (speech clarity - read or repeat words) - 0(Normal) 11. Extinction and Inattention (visual/tactile/auditory/spatial/personal) - 0(No abnormality) Initials: NIH Stroke Scale - NIH Stroke Score Date: 07/08/2020 Time: 12:43 Total Score = 4 1a. Level of Consciousness (LOC) - 1(Not Alert) 1b. Level of Consciousness (LOC) (Year \T\ Age) - 0(Both) 1c. LOC Commands (Open \T\ Closes Eyes/Social Media Director) - 0(Both) 2. Best Gaze (Lateral Gaze Paresis) - 0(Normal) 3. Visual Field Loss - 0(No visual loss) 4. Facial Palsy - 0(Normal) 5a. Left Arm: Motor (10-second hold) - 1(Drift) 5b. Right Arm: Motor (10-second hold) - 0(No drift) 6a. Left Leg: Motor (5-second hold - always test supine) - 1(Drift) 6b. Right Leg: Motor (5-second hold - always test supine) - 0(No drift) 7. Limb Ataxia (finger/nose \T\ heel/tobias - test with eyes open) - 0(Absent) 8. Sensory Loss (pinprick arms/legs/face) - 1(Mild to moderate loss) 9. Best Language: Aphasia (description/naming/reading) - 0(No aphasia) 10. Dysarthria (speech clarity - read or repeat words) - 0(Normal) 11. Extinction and Inattention (visual/tactile/auditory/spatial/personal) - 0(No abnormality) Initials: ss Signatures: Dispatcher [employer] EDDafne Worrell, RN RN Maxwell Meadows MD MD rn [place], Eric em1 Sabrina Pedro RN RN ss Albertina Schmidt am2 Cam Bergeron RN RN jd3 Russell Frankel RN RN Cam Bergeron RN jd3 Corrections: (The following items were deleted from the chart) 07/08 11:07 11:05 NIHSS Score: 4 [facility]
--- NOTE | 2020-07-08 12:05 | EDPHYS ---
Physician Documentation [facility] Name: Anum Martinez Age: 24 yrs Sex: Female : 1995 Arrival Date: 07/08/2020 Time: 10:46 Bed 5 Private MD: ED Physician Maxwell Meadows HPI: 07/08 10:55 This 24 yrs old Female presents to ER via Unassigned with complaints of S/S of rn Possible Stroke. 10:55 The patient presents to the emergency department with weakness of the left upper rn extremity, left lower extremity, left side of the face, paresthesias of the left lower extremity, left upper extremity. Onset: The symptoms/episode began/occurred 1 hour(s) ago. Associated signs and symptoms: Pertinent positives: paresthesias, weakness, Pertinent negatives: altered mental status, fever, headache, neck stiffness, seizure, double vision, visual field changes, loss of vision. Severity of symptoms: At their worst the symptoms were moderate in the emergency department the symptoms are unchanged. Current symptoms: paralysis or paresis. The patient has not experienced similar symptoms in the past. The patient has been recently seen by a physician:. Reports getting dressed at home approx 1 hour prior to arrival, not using her oxygen, shortly after began to feel weakness and numbness on left side of body, boyfriend called 911 for possible stroke. +COVID 1 month ago and on home O2. NO head injury. NO hx of stroke or DVT/PE. Taking aspirin. Also reports chest pressure and sob during episode. Feels tingling in both hands and feet, but states left side of body obviously weaker and can't feel like she can on right side. No changes in medication. . Historical: - Allergies: 13:01 No Known Allergies; ss - Home Meds: 13: aspirin 81 mg Oral chew 1 tab once daily [Active]; ss - PMHx: 13: Home O2 2-3 L NC s/p COVID; ss - PSHx: 13:01 None; ss - Immunization history:: Adult Immunizations up to date. - Family history:: not pertinent. - Social history:: Smoking status: Patient denies any tobacco usage or history of. - Hospitalizations: : Patient was recently seen at. ROS: 10:55 Constitutional: Negative for fever, chills, and weight loss, Eyes: Negative for injury, rn pain, redness, and discharge, Neck: Negative for injury, pain, and swelling, Cardiovascular: Negative for palpitations, and edema Respiratory: Negative for wheezing, and pleuritic chest pain, Abdomen/GI: Negative for abdominal pain, nausea, vomiting, diarrhea, and constipation, MS/Extremity: Negative for injury and deformity, Skin: Negative for injury, rash, and discoloration, Neuro: Negative for headache, and seizure. Exam: 10:55 Constitutional: Overweight patient, appears to be somnolent and globally weak. rn Requires alot of coaching and pressure to cooperate and given effort. Head/Face: Normocephalic, atraumatic. Eyes: Pupils equal round and reactive to light, extra-ocular motions intact. Lids and lashes normal. Conjunctiva and sclera are non-icteric and not injected. Cornea within normal limits. Periorbital areas with no swelling, redness, or edema. ENT: dry MM Cardiovascular: Regular rate and rhythm. No pulse deficits. Respiratory: Mild tachypnea, no retractions. Abdomen/GI: soft, non-tender Skin: Warm, dry, no cyanosis MS/ Extremity: Pulses equal, no cyanosis. Neuro: Somnolent, awakens to voice, + weakness in all 4 extremities with slight drift LUE and LLE, + decreased sensation to soft touch LUE/LLE, + slight left lower facial weakness, no forehead weakness. Vital Signs: 10:50 BP 141 / 96; Pulse 100; Resp 18 S; Temp 98.6; Pulse Ox 100% on 3 lpm NC; iw 11:22 Pulse Ox 100% ; Pain 0/10; ss 11:43 Weight 95.62 kg (M); jd3 11:53 BP 106 / 72; Pulse 74; ss 12:08 BP 112 / 74; Pulse 73; ss 12:23 BP 117 / 73; Pulse 87; ss 12:38 BP 118 / 74; Pulse 78; ss 12:43 BP 121 / 93; Pulse 87; Resp 20; Pulse Ox 100% on 2 lpm NC; Pain 0/10; ss 11:22 100% on RA. Pt requesting O2 as she feels short of breath and has home O2 at 3 L NC NIH Stroke Scale Scores: 10:55 NIHSS Score: 4 rn 11:07 NIHSS Score: 4 iw 11:53 NIHSS Score: 2 ss 12:08 NIHSS Score: 2 ss 12:23 NIHSS Score: 2 ss 12:38 NIHSS Score: 4 ss 12:43 NIHSS Score: 4 ss Laura Coma Score: 10:55 Eye Response: spontaneous(4). Verbal Response: oriented(5). Motor Response: obeys rn commands(6). Total: 15. MDM: 10:52 Patient medically screened. rn 11:04 ED course: Repeatedly stressed to patient importance of exam and effort, patient gives rn minimal effort to strength testing, appears to be slightly weaker on left side but definitely weak globally. Changed her positioning and had her seated, helped eliminate some gravity for strength testing, still weak in all 4 ext but unable to hold up LUE/LLE as long as right side. . ED course: CT head no acute findings. . 11:09 ED course: Consulted with Dr. Bush, recommends TPA given within window and rn measurable deficits in young female with recent COVID diagnosis and increased stroke risk. . 11:23 ED course: I spoke with patient and explained risks and benefits of tpa, she rn understands, consents to TPA. . 12:03 Data reviewed: vital signs, nurses notes, lab test result(s), EKG, radiologic studies, rn CT scan, and as a result, I will admit patient. Counseling: I had a detailed discussion with the patient and/or guardian regarding: the historical points, exam findings, and any diagnostic results supporting the discharge/admit diagnosis, lab results, radiology results, the need for further work-up and treatment in the hospital. Response to treatment: the patient's symptoms have mildly improved after treatment, and as a result, I will admit patient. Admission orders: after a detailed discussion of the patient's condition and case, the admit orders are written by me. ED course: TPA going, will admit to Dr. Blount given CTA does not show large vessel occlusion. . 14:00 ED course: Pt improved, still feels weakness/numbness left side of body, but more alert rn and feels better. . 07/08 10:53 Order name: Magnesium; Complete Time: 12:05 rn 07/08 10:53 Order name: Troponin (emerg Dept Use Only); Complete Time: 12:05 rn 07/08 10:53 Order name: CPK; Complete Time: 12:05 rn 07/08 10:53 Order name: Basic Metabolic Panel; Complete Time: 12:05 rn 07/08 10:53 Order name: CBC with Diff; Complete Time: 12:05 rn 07/08 10:53 Order name: Protime (+inr); Complete Time: 12:05 rn 07/08 10:53 Order name: Ptt, Activated; Complete Time: 12:05 rn 07/08 14:24 Order name: SARS-COV-2 RT PCR; Complete Time: 18:59 EDMS 07/08 18:49 Order name: Glucose, Ancillary Testing; Complete Time: 18:59 EDMS 07/08 21:52 Order name: Glucose, Ancillary Testing EDMS 07/08 23:36 Order name: CREATININE WHOLE BLOOD EDMS 07/09 04:17 Order name: CBC with Automated Diff EDMS 07/09 05:09 Order name: Sedimentation Rate, [place]gren EDMS 07/08 10:53 Order name: CT Stroke Brain w/o Contrast; Complete Time: 12:05 rn 07/08 10:53 Order name: Stroke CXR 1 View; Complete Time: 14:01 rn 07/08 10:53 Order name: EKG; Complete Time: 10:54 rn 07/08 10:53 Order name: CT Head Angio; Complete Time: 12:05 rn 07/08 13:56 Order name: NPO EDMS 07/08 13:56 Order name: Echo with Doppler EDMS 07/08 13:56 Order name: Stroke Protocol EDMS 07/09 05:12 Order name: Comprehensive Metabolic Panel EDMS 07/09 05:12 Order name: Phosphorus EDMS 07/09 05:12 Order name: Lipid Profile EDMS 07/09 05:12 Order name: T4,Total EDMS 07/09 05:12 Order name: Magnesium EDMS 07/09 05:12 Order name: Thyroid Stimulating Hormone EDMS 07/08 10:53 Order name: Accucheck; Complete Time: 12:49 rn 07/08 10:53 Order name: Cardiac monitoring; Complete Time: 12:26 rn 07/08 10:53 Order name: EKG - Nurse/Tech; Complete Time: 12:26 rn 07/08 10:53 Order name: IV Saline Lock; Complete Time: 12:26 rn 07/08 10:53 Order name: Labs collected and sent; Complete Time: 12:49 rn 07/08 10:53 Order name: NPO; Complete Time: 12:49 rn 07/08 10:53 Order name: O2 Per Protocol; Complete Time: 12:49 rn 07/08 10:53 Order name: O2 Sat Monitoring; Complete Time: 12:49 rn 07/08 10:53 Order name: Stroke Swallow Screen; Complete Time: 12:49 rn 07/08 13:56 Order name: Physical Therapy Consult EDMS 07/08 13:56 Order name: NPO EDMS 07/08 13:56 Order name: NPO EDMS 07/08 13:56 Order name: EKG Electrocardiogram EDMS 07/08 13:56 Order name: Speech Therapy Consult EDMS Administered Medications: 11:53 Drug: ACTIvase (alteplase) {Co-Signature: jd3 (Cam Bergeron RN).} {Note: Bolus dose: ss 8.6 Infusion dose: 77.4 mg.} Route: IV Thrombolytics; Rate: calculated rate; Infused Over: 60 mins; 11:54 Follow up: Response: No adverse reaction ss 12:54 Follow up: Response: completed infusion ss 16:44 Drug: foLIC Acid 1 mg Route: IVPB; Site: right antecubital; ss 16:50 Follow up: IV Status: Completed infusion ss Disposition: 07/08/20 12:04 Hospitalization ordered by Christiano Blount for Inpatient Admission. Preliminary diagnosis are Weakness, Paresthesia of skin, Facial weakness, Cerebral infarction. - Bed requested for [facility] ER HOLD. - Status is Inpatient Admission. bp - Condition is Stable. - Problem is new. - Symptoms have improved. Critical care time excluding procedures: 12:03 Critical care time: Bedside Care: 25 minutes, Consultation: 5 minutes. Total time: 30 rn minutes NIH Stroke Scale - NIH Stroke Score Date: 07/08/2020 Time: 10:55 Total Score = 4 1a. Level of Consciousness (LOC) - 0(Alert) 1b. Level of Consciousness (LOC) (Year \T\ Age) - 0(Both) 1c. LOC Commands (Open \T\ Closes Eyes/Flame Cutting Machine Operator) - 0(Both) 2. Best Gaze (Lateral Gaze Paresis) - 0(Normal) 3. Visual Field Loss - 0(No visual loss) 4. Facial Palsy - 1(Minor Paralysis) 5a. Left Arm: Motor (10-second hold) - 1(Drift) 5b. Right Arm: Motor (10-second hold) - 0(No drift) 6a. Left Leg: Motor (5-second hold - always test supine) - 1(Drift) 6b. Right Leg: Motor (5-second hold - always test supine) - 0(No drift) 7. Limb Ataxia (finger/nose \T\ heel/tobias - test with eyes open) - 0(Absent) 8. Sensory Loss (pinprick arms/legs/face) - 1(Mild to moderate loss) 9. Best Language: Aphasia (description/naming/reading) - 0(No aphasia) 10. Dysarthria (speech clarity - read or repeat words) - 0(Normal) 11. Extinction and Inattention (visual/tactile/auditory/spatial/personal) - 0(No abnormality) Initials: NIH Stroke Scale - NIH Stroke Score Date: 07/08/2020 Time: 11:07 Total Score = 4 1a. Level of Consciousness (LOC) - 0(Alert) 1b. Level of Consciousness (LOC) (Year \T\ Age) - 0(Both) 1c. LOC Commands (Open \T\ Closes Eyes/Flame Cutting Machine Operator) - 0(Both) 2. Best Gaze (Lateral Gaze Paresis) - 0(Normal) 3. Visual Field Loss - 0(No visual loss) 4. Facial Palsy - 1(Minor Paralysis) 5a. Left Arm: Motor (10-second hold) - 1(Drift) 5b. Right Arm: Motor (10-second hold) - 0(No drift) 6a. Left Leg: Motor (5-second hold - always test supine) - 1(Drift) 6b. Right Leg: Motor (5-second hold - always test supine) - 0(No drift) 7. Limb Ataxia (finger/nose \T\ heel/tobias - test with eyes open) - 0(Absent) 8. Sensory Loss (pinprick arms/legs/face) - 1(Mild to moderate loss) 9. Best Language: Aphasia (description/naming/reading) - 0(No aphasia) 10. Dysarthria (speech clarity - read or repeat words) - 0(Normal) 11. Extinction and Inattention (visual/tactile/auditory/spatial/personal) - 0(No abnormality) Initials: NIH Stroke Scale - NIH Stroke Score Date: 07/08/2020 Time: 11:53 Total Score = 2 1a. Level of Consciousness (LOC) - 1(Not Alert) 1b. Level of Consciousness (LOC) (Year \T\ Age) - 0(Both) 1c. LOC Commands (Open \T\ Closes Eyes/Flame Cutting Machine Operator) - 0(Both) 2. Best Gaze (Lateral Gaze Paresis) - 0(Normal) 3. Visual Field Loss - 0(No visual loss) 4. Facial Palsy - 0(Normal) 5a. Left Arm: Motor (10-second hold) - 0(No drift) 5b. Right Arm: Motor (10-second hold) - 0(No drift) 6a. Left Leg: Motor (5-second hold - always test supine) - 0(No drift) 6b. Right Leg: Motor (5-second hold - always test supine) - 0(No drift) 7. Limb Ataxia (finger/nose \T\ heel/tobias - test with eyes open) - 0(Absent) 8. Sensory Loss (pinprick arms/legs/face) - 1(Mild to moderate loss) 9. Best Language: Aphasia (description/naming/reading) - 0(No aphasia) 10. Dysarthria (speech clarity - read or repeat words) - 0(Normal) 11. Extinction and Inattention (visual/tactile/auditory/spatial/personal) - 0(No abnormality) Initials: NIH Stroke Scale - NIH Stroke Score Date: 07/08/2020 Time: 12:08 Total Score = 2 1a. Level of Consciousness (LOC) - 1(Not Alert) 1b. Level of Consciousness (LOC) (Year \T\ Age) - 0(Both) 1c. LOC Commands (Open \T\ Closes Eyes/Flame Cutting Machine Operator) - 0(Both) 2. Best Gaze (Lateral Gaze Paresis) - 0(Normal) 3. Visual Field Loss - 0(No visual loss) 4. Facial Palsy - 0(Normal) 5a. Left Arm: Motor (10-second hold) - 0(No drift) 5b. Right Arm: Motor (10-second hold) - 0(No drift) 6a. Left Leg: Motor (5-second hold - always test supine) - 0(No drift) 6b. Right Leg: Motor (5-second hold - always test supine) - 0(No drift) 7. Limb Ataxia (finger/nose \T\ heel/tobias - test with eyes open) - 0(Absent) 8. Sensory Loss (pinprick arms/legs/face) - 1(Mild to moderate loss) 9. Best Language: Aphasia (description/naming/reading) - 0(No aphasia) 10. Dysarthria (speech clarity - read or repeat words) - 0(Normal) 11. Extinction and Inattention (visual/tactile/auditory/spatial/personal) - 0(No abnormality) Initials: NIH Stroke Scale - NIH Stroke Score Date: 07/08/2020 Time: 12:23 Total Score = 2 1a. Level of Consciousness (LOC) - 1(Not Alert) 1b. Level of Consciousness (LOC) (Year \T\ Age) - 0(Both) 1c. LOC Commands (Open \T\ Closes Eyes/Flame Cutting Machine Operator) - 0(Both) 2. Best Gaze (Lateral Gaze Paresis) - 0(Normal) 3. Visual Field Loss - 0(No visual loss) 4. Facial Palsy - 0(Normal) 5a. Left Arm: Motor (10-second hold) - 0(No drift) 5b. Right Arm: Motor (10-second hold) - 0(No drift) 6a. Left Leg: Motor (5-second hold - always test supine) - 0(No drift) 6b. Right Leg: Motor (5-second hold - always test supine) - 0(No drift) 7. Limb Ataxia (finger/nose \T\ heel/tobias - test with eyes open) - 0(Absent) 8. Sensory Loss (pinprick arms/legs/face) - 1(Mild to moderate loss) 9. Best Language: Aphasia (description/naming/reading) - 0(No aphasia) 10. Dysarthria (speech clarity - read or repeat words) - 0(Normal) 11. Extinction and Inattention (visual/tactile/auditory/spatial/personal) - 0(No abnormality) Initials: NIH Stroke Scale - NIH Stroke Score Date: 07/08/2020 Time: 12:38 Total Score = 4 1a. Level of Consciousness (LOC) - 1(Not Alert) 1b. Level of Consciousness (LOC) (Year \T\ Age) - 0(Both) 1c. LOC Commands (Open \T\ Closes Eyes/Flame Cutting Machine Operator) - 0(Both) 2. Best Gaze (Lateral Gaze Paresis) - 0(Normal) 3. Visual Field Loss - 0(No visual loss) 4. Facial Palsy - 0(Normal) 5a. Left Arm: Motor (10-second hold) - 1(Drift) 5b. Right Arm: Motor (10-second hold) - 0(No drift) 6a. Left Leg: Motor (5-second hold - always test supine) - 1(Drift) 6b. Right Leg: Motor (5-second hold - always test supine) - 0(No drift) 7. Limb Ataxia (finger/nose \T\ heel/tobias - test with eyes open) - 0(Absent) 8. Sensory Loss (pinprick arms/legs/face) - 1(Mild to moderate loss) 9. Best Language: Aphasia (description/naming/reading) - 0(No aphasia) 10. Dysarthria (speech clarity - read or repeat words) - 0(Normal) 11. Extinction and Inattention (visual/tactile/auditory/spatial/personal) - 0(No abnormality) Initials: NIH Stroke Scale - NIH Stroke Score Date: 07/08/2020 Time: 12:43 Total Score = 4 1a. Level of Consciousness (LOC) - 1(Not Alert) 1b. Level of Consciousness (LOC) (Year \T\ Age) - 0(Both) 1c. LOC Commands (Open \T\ Closes Eyes/Flame Cutting Machine Operator) - 0(Both) 2. Best Gaze (Lateral Gaze Paresis) - 0(Normal) 3. Visual Field Loss - 0(No visual loss) 4. Facial Palsy - 0(Normal) 5a. Left Arm: Motor (10-second hold) - 1(Drift) 5b. Right Arm: Motor (10-second hold) - 0(No drift) 6a. Left Leg: Motor (5-second hold - always test supine) - 1(Drift) 6b. Right Leg: Motor (5-second hold - always test supine) - 0(No drift) 7. Limb Ataxia (finger/nose \T\ heel/tobias - test with eyes open) - 0(Absent) 8. Sensory Loss (pinprick arms/legs/face) - 1(Mild to moderate loss) 9. Best Language: Aphasia (description/naming/reading) - 0(No aphasia) 10. Dysarthria (speech clarity - read or repeat words) - 0(Normal) 11. Extinction and Inattention (visual/tactile/auditory/spatial/personal) - 0(No abnormality) Initials: ss Signatures: Dispatcher [employer] [facility] YanelisAmy avilez Maxwell Nice MD MD rn Smirch, Shelby RN RN ss Russell Frankel, SERG RN bp Cam Bergeron RN jd3 Corrections: (The following items were deleted from the chart) 13:33 12:04 Hospitalization Ordered by Christiano Blount MD for Inpatient Admission. bd Preliminary diagnosis is Weakness; Paresthesia of skin; Facial weakness; Cerebral infarction. Bed requested for Telemetry/MedSurg (Inpatient). Status is Inpatient Admission. Condition is Stable. Problem is new. Symptoms have improved. rn 13:35 13:11 CORONAVIRUS+MR.LAB.BRZ ordered. [facility] 13:59 13:56 Chest Pa And Lat (2 Views) ordered. [facility] 07/09 07:42 07/08 13:33 07/08/2020 12:04 Hospitalization Ordered by Christiano Blount MD for bp Inpatient Admission. Preliminary diagnosis is Weakness; Paresthesia of skin; Facial weakness; Cerebral infarction. Bed requested for [facility] ER HOLD. Status is Inpatient Admission. Condition is Stable. Problem is new. Symptoms have improved. bd
[2020-07-08] MEDS ORDERED: NA CHLORIDE 0.9% 250 ML ONE (12:07)
--- NOTE | 2020-07-08 12:22 | RAD REPORT ---
EXAM DESCRIPTION: Alejandro Single View07/08/2020 11:41 am CLINICAL HISTORY: Shortness of breath COMPARISON: June 2020 FINDINGS: Mild bilateral pulmonary opacities. Heart is normal size IMPRESSION: Mild bilateral pulmonary opacities probably pneumonia
[2020-07-08] MEDS ORDERED: ONDANSETRON 4 MG/2 ML VIAL IV PRN (13:51)
[2020-07-08 15:43] VITALS: BMI 45.6
[2020-07-08] MEDS: ACETAMINOPHEN 500 MG TAB PO PRN (16:10)
[2020-07-08] MEDS: NA CHLORIDE 0.9% 1,000 ML IV SCH (16:10)
[2020-07-08] MEDS ORDERED: ACETAMINOPHEN 500 MG TAB ONE (16:16)
[2020-07-08] MEDS ORDERED: NA CHLORIDE 0.9% 1,000 ML ONE (16:16)
[2020-07-08] MEDS ORDERED: FOLIC ACID 5 MG/ML VIAL ONE (16:59)
[2020-07-08] MEDS ORDERED: ATORVASTATIN 40 MG TAB PO SCH (21:00)
[2020-07-09] MEDS: NA CHLORIDE 0.9% 1,000 ML IV SCH (03:20)
[2020-07-09 04:12] LABS: Absolute Lymphocytes (CBC) 2.2 K/uL (0.7-4.9); Basophils % 1.1 % (0-1.3); Hematocrit 35.2 % (36.0-45.0); Lymphocytes % 31.4 % (15.3-44.8); MPV 7.3 fL (7.6-11.3); RBC Red Blood Cell Count 3.86 M/uL (3.86-4.86)
[2020-07-09 05:12] LABS: ALT/SGPT 31 U/L (12-78); AST/SGOT 15 U/L (15-37); Albumin 2.8 g/dL (3.4-5.0); Alkaline Phosphatase 63 U/L (45-117); BUN Blood Urea Nitrogen 14 mg/dL (7-18); Bicarbonate 27 mmol/L (21-32); Bilirubin Total 0.3 mg/dL (0.2-1.0); Glucose Level 92 mg/dL (74-106); HDL Cholesterol 47 mg/dL (40-60); LDL Cholesterol, Calculated 148 (<130); Magnesium 2.2 mg/dL (1.8-2.4); Phosphorus 4.1 mg/dL (2.5-4.9); Protein, Total 6.1 g/dL (6.4-8.2); Sodium Level 143 mmol/L (136-145); T4,Total 5.8 ug/dL (4.8-13.9)
[2020-07-09] MEDS ORDERED: NA CHLORIDE 0.9% 1,000 ML ONE (06:09)
--- NOTE | 2020-07-09 08:52 | EKG ---
Test Date: 2020-07-08 Test Time: 11:40:23 Black Leather Trimmer: JAMES MEASUREMENT RESULTS: Intervals: Rate: 74 MS: 132 QRSD: 80 QT: 384 QTc: 426 [place]: P: 40 MS: 132 QRS: 42 T: 41 INTERPRETIVE STATEMENTS: Normal sinus rhythm Normal ECG Compared to ECG 01/21/2018 21:46:13 No significant changes Electronically Signed On 07-09-20 08:50:14 CDT by Hector Anaya
[2020-07-09] MEDS ORDERED: CLOPIDOGREL 75 MG TABLET PO SCH (09:00)
[2020-07-09] MEDS ORDERED: ASPIRIN EC 81 MG TAB PO SCH (09:00)
[2020-07-09] MEDS ORDERED: ENOXAPARIN 40 MG/0.4 ML SQ SCH (09:00)
--- NOTE | 2020-07-09 09:01 | RAD REPORT ---
EXAM DESCRIPTION: MRI - Brain W/Wo Cont - 07/09/2020 8:43 am CLINICAL HISTORY: CVA/left-sided weakness COMPARISON: July 08, [address] TECHNIQUE: Axial, sagittal, and coronal magnetic images of the brain were obtained. 20 cc MultiHance administered intravenously FINDINGS: Mild to moderate signal within periventricular, deep and subcortical white matter probably ischemic changes secondary to small vessel disease The ventricles are normal in caliber. Diffusion-weighted/ ADC mapping sequences do not demonstrate evidence of an acute infarction. No abnormal enhancement within the brain is seen. An extra-axial fluid collection is not noted. Fluid within the sinuses/mastoids is not seen IMPRESSION: No acute abnormality displayed
--- NOTE | 2020-07-09 09:03 | RAD REPORT ---
EXAM DESCRIPTION: MRI - MRA Neck W/Wo Cont - 07/09/2020 8:43 am CLINICAL HISTORY: Left-sided weakness/CVA COMPARISON: None. TECHNIQUE: Magnetic resonance angiogram of the neck was performed. 20 cc MultiHance was administered intravenously. 3D MIPS reconstruction performed FINDINGS: The common carotid, internal carotid and external carotid arteries do not demonstrate a si gnificant stenosis. An aneurysm is not seen. The left vertebral artery is dominant. No abnormality of vertebral arteries noted. IMPRESSION: Unremarkable MRA neck NASCET criteria used. Mild 0-49% stenosis Moderate 50-69% stenosis Severe 70-99% stenosis
--- NOTE | 2020-07-09 09:04 | RAD REPORT ---
EXAM DESCRIPTION: MRI - MRA Head Wo Cont - 07/09/2020 7:18 am CLINICAL HISTORY: CVA/left-sided weakness COMPARISON: None. TECHNIQUE: Magnetic resonance angiogram was performed. 3D MIPS reconstruction performed FINDINGS: The anterior cerebral, middle cerebral, posterior cerebral, distal internal carotid and ba silar arteries do not demonstrate a significant stenosis. An aneurysm is not displayed. IMPRESSION: Unremarkable MRA brain.
--- NOTE | 2020-07-09 09:30 | P.HP ---
Certification for Inpatient Patient admitted to: Inpatient With expected LOS: >2 Midnights Patient will require the following post-hospital care: None Practitioner: I am a practitioner with admitting privileges, knowledge of patient current condition, hospital course, and medical plan of care. Services: Services provided to patient in accordance with Admission requirements found in Title 42 Section 412.3 of the Code of Federal Regulations Patient History Date of Service: 07/08/20 Reason for admission: Left-sided weakness and paresthesias History of Present Illness: Patient is a 24-year-old female came to the hospital with pain and weakness on the left side. Patient has had COVID-19 pneumonia a couple weeks ago. Patient was able to recover well. She is still on a little bit of oxygen. Overall clinically she looks to be doing much better. Patient presented with weakness on the left side. She was having paresthesias as well. ER physician spoke with Neurology and decision was made to go ahead and tPA the patient. Patient was given tPA in her symptoms have pretty much resolved. CT of the brain and CT angiogram is negative. MRI of the brain is pending. Patient be admitted to the hospital for further evaluation. Allergies No Known Allergies Allergy (Unverified 02/27/12 19:04) Home Medications: Aspirin [Aspirin EC 81 MG] 81 mg PO DAILY 07/08/20 Ascorbic Acid [Vitamin C*] 1 tab PO TID 07/09/20 Zinc 50 mg PO BID 07/09/20 - Past Medical/Surgical History Has patient received pneumonia vaccine in the past: No -: COVID-19 pneumonia with hypoxemia Past Surgical History: Patient denies surgical history - Family History Father Family History: Reviewed- Non-Contributory - Social History Smoking Status: Never smoker Alcohol use: Yes CD- Drugs: No Place of Residence: Home Review of Systems 10-point ROS is otherwise unremarkable Physical Examination - Vital Signs Temperature: 97.6 F Blood Pressure: 112/58 Pulse: 77 Respirations: 14 Pulse Ox (%): 100 - Physical Exam General: Alert, In no apparent distress, Oriented x3 HEENT: Atraumatic, PERRLA, Mucous membr. moist/pink, EOMI, Sclerae nonicteric Neck: Supple, 2+ carotid pulse no bruit, No LAD, Without JVD or thyroid abnormality Respiratory: Clear to auscultation bilaterally, Normal air movement Cardiovascular: Regular rate/rhythm, Normal S1 S2, No murmurs Gastrointestinal: Normal bowel sounds, Soft and benign, Non-distended, No tenderness Musculoskeletal: No clubbing, No swelling, No tenderness Integumentary: No rashes Neurological: Normal gait, Normal speech, Normal strength at 5/5 x4 extr, Normal tone, Sensation intact, Cranial nerves 3-12 intact, Normal affect Lymphatics: No axilla or inguinal lymphadenopathy - Studies Laboratory Data (last 24 hrs) 07/08/20 11:21: PT 10.6, INR 0.92, APTT 28.9 07/08/20 11:21: WBC 8.10, Hgb 14.0, Hct 40.8, Plt Count 289 07/08/20 11:21: Sodium 138, Potassium 3.8, BUN 8, Creatinine 0.70, Glucose 87, Magnesium 1.9 Assessment & Plan - Problems (Diagnosis) (1) CVA (cerebral vascular accident) Current Visit: Yes Status: Acute (2) Left-sided weakness Current Visit: Yes Status: Acute (3) Paresthesia of left upper and lower extremity Current Visit: Yes Status: Acute (4) Pneumonia due to COVID-19 virus Current Visit: Yes Status: Acute (5) COVID-19 long hauler Current Visit: Yes Status: Acute - Plan Plan: 1. Status post tPA 2. Continue with anti-platelet therapy 3. Continue statin therapy 4. MRI of the brain pending 5. Neurochecks every 2 hr 6. Monitor hemodynamics closely 7. GI and DVT prophylaxis Discharge Plan: Home Plan to discharge in: Greater than 2 days - Advance Directives Does patient have a Living Will: No Does patient have a Durable POA for Healthcare: No - Code Status/Comfort Care Code Status Assessed: Yes Code Status: Full Code Critical Care: No Time Spent Managing PTS Care (In Minutes): 45
[2020-07-09 11:05] VITALS: TEMP 97.8
[2020-07-09] MEDS: ACETAMINOPHEN 500 MG TAB PO PRN (13:25)
[2020-07-09 15:05] VITALS: O2SAT 99
[2020-07-09 15:17] VITALS: BP 110/76
--- NOTE | 2020-07-09 22:58 | CON ---
Reason For Consultation: Consultation called because of possible stroke. History Of Present Illness: Ms. Martinez is a 24-year-old right-handed patient with COVID-19 p neumonia, requiring some oxygenation, who also has migraines, but comes to [facility] with l eft-sided pain and weakness and headache. She had a COVID-19 positivity about 2 to 3 weeks ago. She still requires oxygen as indicated. While that was improving, she developed headache with left-side d weakness, numbness, and came to [facility]. While at the hospital, her symptoms were with in in terms of onset at that time within the window for tissue plasminogen activator and she actually received tPA in the emergency room and she did have a CT angiogram following that and it was negativ e. Her brain MRI with MRA also confirmed the absence of an acute stroke. The patient reports her sy mptoms are mostly back to completely normal. At worst, her NIH Stroke Scale was 4, related to some w eakness in the left upper and lower extremity and loss of sensation in the left upper and lower extre mity. Past Medical History: As indicated. Allergies: NO KNOWN DRUG ALLERGIES. Medications: Aspirin 81 mg daily, vitamin C 1000 mg daily, zinc 50 mg twice daily. Family History: Noncontributory. Social History: No tobacco use, but positive for alcohol use. Review of Systems: Other than some shortness of breath, require oxygen, diffuse weakness, and fatigue, the patient has n o other complaints other than the left-sided weakness, which is improving. Physical Examination: Vital Signs: Blood pressure 110/76, pulse 87, respiratory rate 16, temperature 97.8, oxygen saturati on 99% on 2 L. Weight 210 pounds, height 4 feet 9 inches, BMI 40. General: Ms. Martinez is able to stand next to her bed. She is in no acute distress. HEENT: She is normocephalic, atraumatic. Sclerae anicteric. Oropharynx is pink and moist. Neck: Supple. Chest: Clear. Heart: Regular. Extremities: No edema or cyanosis. Neurological: She is alert and oriented to situation, place, and person. She has no expressive or r eceptive aphasias. Cranial nerves 2 through 12 intact. Motor examination, she has subtle weakness i n the left lower extremity and she is unable to stand on the left leg, but can stand just on the righ t leg. Otherwise, sensation intact in the upper and lower extremities bilaterally. Coordination int act in the upper and lower extremities. Gait, she does have mild difficulty with tandem gait. Laboratory Studies: Complete blood count with differential is essentially normal. Coagulation panel is normal. Chemistries normal. Liver function studies normal. LDL cholesterol 148, HDL cholestero l 47, TSH 3.210. Her COVID-19 test is positive. Assessment: Ms. Martinez is a 24-year-old patient with COVID-19 positivity and stroke, status post tPA with good resolution. She has oxygen requirement with COVID pneumonia and is still positive. Otherw ise, the patient is doing well. Plan: 1.Eliquis 2.5 mg twice daily. 2.Aspirin 81 mg daily. 3.Continue with zinc 50 mg twice daily, vitamin C 1000 mg 3 times daily. 4.The patient may be discharged home and follow up in Dr. Bush's clinic 1 month later. JOHN/CIERRA Voice ID: [id number] Report ID: [id number]
--- NOTE | 2020-07-15 23:01 | P.DS ---
Discharge Date: 07/09/20 Disposition: ROUTINE DISCHARGE Discharge Condition: GOOD Reason for Admission: Left-sided weakness and paresthesias Consultations: Neurologist - Problems (1) CVA (cerebral vascular accident) Status: Acute (2) Left-sided weakness Status: Acute (3) Paresthesia of left upper and lower extremity Status: Acute (4) Pneumonia due to COVID-19 virus Status: Acute (5) COVID-19 long hauler Status: Acute Brief History of Present Illness: Patient is a 24-year-old female came to the hospital with pain and weakness on the left side. Patient has had COVID-19 pneumonia a couple weeks ago. Patient was able to recover well. She is still on a little bit of oxygen. Overall clinically she looks to be doing much better. Patient presented with weakness on the left side. She was having paresthesias as well. ER physician spoke with Neurology and decision was made to go ahead and tPA the patient. Patient was given tPA in her symptoms have pretty much resolved. CT of the brain and CT angiogram is negative. MRI of the brain is pending. Patient be admitted to the hospital for further evaluation. Hospital Course: Patient had MRIs done which was negative. Additional testing was unremarkable. Patient is clinically doing well and is stable for discharge home with outpatient follow up. Would advise continued anticoagulation at discharge. Continue with antiplatelet therapy as well. Also statin therapy will be continued. Blood pressure is stable at this time and patient is stable for discharge home as well. Vital Signs/Physical Exam: Temp Pulse Resp BP Pulse Ox 97.8 F 97 H 16 110/76 97 07/09/20 11:00 07/09/20 15:00 07/09/20 15:00 07/09/20 15:00 07/09/20 15:00 General: Alert, In no apparent distress, Oriented x3 Laboratory Data at Discharge: WBC 7.00 K/uL (4.3-10.9) 07/09/20 03:50 Hgb 11.9 g/dL (12.0-15.0) L 07/09/20 03:50 Hct 35.2 % (36.0-45.0) L 07/09/20 03:50 Plt Count 259 K/uL (152-406) 07/09/20 03:50 PT 10.6 SECONDS (9.5-12.5) 07/08/20 11:21 INR 0.92 07/08/20 11:21 APTT 28.9 SECONDS (24.3-36.9) 07/08/20 11:21 Sodium 143 mmol/L (136-145) 07/09/20 03:50 Potassium 4.0 mmol/L (3.5-5.1) 07/09/20 03:50 BUN 14 mg/dL (7-18) 07/09/20 03:50 Creatinine 0.65 mg/dL (0.55-1.3) 07/09/20 03:50 Glucose 92 mg/dL (74-106) 07/09/20 03:50 Phosphorus 4.1 mg/dL (2.5-4.9) 07/09/20 03:50 Magnesium 2.2 mg/dL (1.8-2.4) 07/09/20 03:50 Total Bilirubin 0.3 mg/dL (0.2-1.0) 07/09/20 03:50 AST 15 U/L (15-37) 07/09/20 03:50 ALT 31 U/L (12-78) 07/09/20 03:50 Alkaline Phosphatase 63 U/L (45-117) 07/09/20 03:50 Triglycerides 149 mg/dL (<150) 07/09/20 03:50 Cholesterol 225 mg/dL (<200) H 07/09/20 03:50 HDL Cholesterol 47 mg/dL (40-60) 07/09/20 03:50 Cholesterol/HDL Ratio 4.79 07/09/20 03:50 Home Medications: Aspirin [Aspirin EC 81 MG] 81 mg PO DAILY 07/08/20 Apixaban [Eliquis] 2.5 mg PO BID #60 tablet 07/09/20 Ascorbic Acid [Vitamin C*] 1 tab PO TID 07/09/20 Atorvastatin Calcium [Lipitor] 40 mg PO BEDTIME #30 tab 07/09/20 Zinc 50 mg PO BID 07/09/20 New Medications: Apixaban [Eliquis] 2.5 mg PO BID #60 tablet Atorvastatin Calcium [Lipitor] 40 mg PO BEDTIME #30 tab Physician Discharge Instructions: OK TO DC IV AND DC HOME FOLLOW-UP WITH PRIMARY CARE PROVIDER IN 1-2 WEEKS FOLLOW-UP WITH Neurology IN 1-2 WEEKS RETURN TO THE ER IF symptoms worsen CALL or TEXT DR. KING AT [phone] IF ANY QUESTIONS REGARDING HOSPITAL STAY. PLEASE CALL THE FLOOR AT [phone] IF ANY MEDICATION OR NURSING QUESTIONS. Diet: AHA Activity: Fall precautions Followup: Greyson Pace MD [Primary Care Provider] - Time spent managing pt's care (in minutes): 35
== END 2020-07-09 16:33 | disposition home or self-care (01) | DRG 61 ==
LOC: ER 10:43 → ERHOLD 13:53 → 4TH 07-09 08:02
PROVIDERS: ADMIT Hospitalist; ATTEND Hospitalist
DX: I63.9 Cerebral infarction, unspecified (principal); U07.1 COVID-19; J12.82 Pneumonia due to coronavirus disease 2019; G81.94 Hemiplegia, unspecified affecting left nondominant side; G43.909 Migraine, unspecified, not intractable, without status migrainosus; R29.704 NIHSS score 4; R20.2 Paresthesia of skin; Z79.82 Long term (current) use of aspirin; Z79.899 Other long term (current) drug therapy
CPT/HCPCS: 36415; 70450; 70496; 70544; 70549; 70553; 71045; 80048; 80053; 80061; 82550; 82565; 82947; 83735; 84100; 84436; 84443; 84484; 85025; 85610; 85652; 85730; 92610; 92977; 93005; 96374; 97112; 97116; 97161; 99285; A9577; J1650; J2997; J7030; J7050; Q9967; U0003

== ENCOUNTER 2020-11-15 06:35 | Emergency (ER) | payer OTHER ==
--- OUTSIDE RECORDS SUMMARY | 2020-11-15 06:38 | XMS REPORT | Continuity of Care Document ---
:1995 Author Organization [facility] t Address [address] [place] [address] Care Team Providers Name Role Phone Valentino Yi DO Attending Clinician Mina Chandra MD Attending Clinician Doctor Unassigned, Name Attending Clinician Unavailable Problems Condition Condition Condition Status Onset Resolution Last Treating Co mments Source Name Details Category Date Date Treatment Clinician Date Irregular Irregular Problem Active [facility] BMI BMI Problem Active [facility] 45.0-49.9, 45.0-49.9, Osiris kes - adult adult [facility] Desire for Desire for Problem Active [facility] Influenza Influenza Problem Active [facility] Clinics Fever and Fever and Problem Active [facility] chills chills [facility] Allergies, Adverse Reactions, Alerts This patient has no known allergies or adverse reactions. Medications Ordered Filled Start Stop Current Ordering Indication Dosage Frequency Signature Comments Components Source Medication Medication Date Date Medication? Clinician (SIG) Name Name Loestrin Fe Loestrin Fe Yes Alice [address] 04/22 04/22 Nesbitt [facility] Procedures This patient has no known procedures. Encounters Start End Encounter Admission Attending Care Care Encounter Source Date/Time Date/Time Type Type Clinicians Facility Department ID 2020-11-09 2020-11-09 Emergency [facility] [id number] 08:39:00 11:35:00 Mere Avelar Jasvir [id number] [place] [id number] [place] [id number] [facility] 2020-08-04 2020-08-04 Telephone [facility] [id number] 00:00:00 00:00:00 Tej Tya [id number] [place] [id number] Professio [id number] [address] 2020-08-03 2020-08-03 [facility] [id number] 10:23:29 23:59:00 Encounter [facility] [id number] [place] [id number] [place] [id number] [facility] 804 ([facility]) 2020-07-24 2020-07-24 Telephone [facility] [id number] 00:00:00 00:00:00 Tej Tay [id number] [place] [id number] [id number] [address] 2020-07-21 2020-07-21 Office [facility] [id number] 13:41:22 14:55:23 Visit Tej Tay [id number] [place] [id number] Professio [id number] [address] 2020-07-21 2020-07-21 Orders Doctor FLAQUITO [id number] 00:00:00 00:00:00 Only Unassigned, CEDRIC [id number] [place] [id number] 2017-12-01 2017-12-01 [facility] [id number] [address] 10:30:00 10:30:00 [facility] 2017-08-04 2017-08-04 Outpatient Annabel Ibarra [id number] 11:00:00 11:00:00 t [facility] 2017-08-03 2017-08-03 Outpatient Annabel Ibarra [id number] 15:50:00 15:50:00 t [facility] 2017-07-27 2017-07-27 Outpatient Annabel Ibarra [id number] 15:00:00 15:00:00 t [facility] Results This patient has no known results.
--- NOTE | 2020-11-15 07:03 | RAD REPORT ---
EXAM DESCRIPTION: CT - Ct Stroke Brain Wo Cont - 11/15/2020 6:58 am CLINICAL HISTORY: DIZZINESS COMPARISON: <Comparisons> TECHNIQUE: All CT scans are performed using dose optimization technique as appropriate and may inclu de automated exposure control or mA/KV adjustment according to patient size. FINDINGS: No intracranial hemorrhage, hydrocephalus or extra-axial fluid collection.No areas of brai n edema or evidence of midline shift. The paranasal sinuses and mastoids are clear. The calvarium is intact. IMPRESSION: No acute intracranial abnormality.
[2020-11-15 07:16] LABS: Absolute Lymphocytes (CBC) 2.4 K/uL (0.7-4.9); Basophils % 0.7 % (0-1.3); Hematocrit 43.7 % (36.0-45.0); Lymphocytes % 24.6 % (15.3-44.8); MPV 7.1 fL (7.6-11.3); RBC Red Blood Cell Count 4.86 M/uL (3.86-4.86)
[2020-11-15 07:17] LABS: Protime INR 0.86
[2020-11-15 07:23] LABS: BUN Blood Urea Nitrogen 10 mg/dL (7-18); Bicarbonate 27 mmol/L (21-32); Glucose Level 111 mg/dL (74-106); Potassium 3.5 mmol/L (3.5-5.1); Sodium Level 139 mmol/L (136-145)
[2020-11-15] MEDS ORDERED: ASPIRIN 325 MG TAB ONE (07:54)
[2020-11-15] MEDS ORDERED: FOLIC ACID 5 MG/ML VIAL ONE (07:55)
--- NOTE | 2020-11-15 08:08 | RAD REPORT ---
EXAM DESCRIPTION: RAD - Chest Single View - 11/15/2020 7:12 am CLINICAL HISTORY: cva s/s COMPARISON: Head angio dated 07/08/2020; Ct Stroke Brain Wo Cont dated 07/08/2020t Stroke Brain Wo Cont dated 11/15/2020; Head angio dated 07/08/2020hest Pa And Lat (2 Views) dated 08/27/2020; Chest Single V iew dated 07/08/2020; Chest Single View dated 06/13/2020; Chest Single View dated 01/21/2018 FINDINGS: No evidence of edema or pneumonia. The heart size is within normal limits.No acute osseous abnormality. No significant pleural effusions or pneumothorax. IMPRESSION: No acute cardiopulmonary disease.
--- NOTE | 2020-11-15 08:08 | RAD REPORT ---
EXAM DESCRIPTION: CT - Head angio - 11/15/2020 8:00 am CLINICAL HISTORY: Numbness;Weakness COMPARISON: <Comparisons> TECHNIQUE: CT angiography of the head was performed with MIPs. All CT scans are performed using dose optimization technique as appropriate and may include automated exposure control or mA/KV adjustment according to patient size. FINDINGS: No evidence of aneurysm is detected. No flow-limiting stenosis or vascular malformation id entified. Antegrade flow is seen in the vertebral arteries. The vertebral arteries are codominant. The visualized dural venous sinuses are patent. IMPRESSION: No significant flow abnormality is detected.
[2020-11-15 08:16] LABS: Urine Blood 1+ (Negative); Urine Glucose Negative (Negative); Urine Protein Negative (Negative); Urine Specific Gravity 1.015 (1.005-1.030); Urine pH 6.5 (5.0-7.0)
[2020-11-15 09:53] LABS: Barbiturates NEGATIVE (NEGATIVE); Benzodiazepines NEGATIVE (NEGATIVE); Cocaine NEGATIVE (NEGATIVE); METHAMPHETAM NEGATIVE (NEGATIVE); Methadone NEGATIVE (NEGATIVE); Opiates NEGATIVE (NEGATIVE); Phencyclidine NEGATIVE (NEGATIVE); THC Cannibis NEGATIVE (NEGATIVE)
[2020-11-15] MEDS ORDERED: MECLIZINE HCL 12.5 MG TAB ONE (10:14)
[2020-11-15 10:56] LABS: Urine Specific Gravity/Preg 1.015 (1.005-1.030)
--- NOTE | 2020-11-15 11:27 | RAD REPORT ---
EXAM DESCRIPTION: MRI - Brain Wo Cont - 11/15/2020 11:15 am CLINICAL HISTORY: Numbness;Weakness COMPARISON: Chest Pa And Lat (2 Views) dated 11/13/2020; Chest Single View dated 11/11/2020; Chest Sin gle View dated 11/09/2020; Chest Single View dated 07/10/2019Brain W/Wo Cont dated 07/09/2020; MRA Head Wo Cont dated 07/09/2020 FINDINGS: No acute intracranial abnormality. No mass effect or midline shift. No evidence of acute i nfarct. No significant white matter disease. No mastoid effusions. The paranasal sinuses are well aer ated. IMPRESSION: Unremarkable brain MRI. Specifically, no evidence of acute infarct. No significant oreilly e compared with 07/21/2020.
--- NOTE | 2020-11-15 12:04 | EDPHYS ---
Physician Documentation [facility] Name: Anum Martinez Age: 25 yrs Sex: Female : 1995 Arrival Date: 11/15/2020 Time: 06:36 Bed 3 Private MD: ED Physician Leeroy Gregory HPI: 11/15 08:21 This 25 yrs old Female presents to ER via Wheelchair with complaints of pm1 Dizziness, Nausea, Tingling of Lips and Left arm. 08:21 The patient presents with dizziness, generalized weakness. Onset: The symptoms/episode pm1 began/occurred this morning, at 05:30. Context: occurred at home, just prior to the episode the patient experienced no apparent symptoms, Occurred upon waking. Modifying factors: The symptoms are alleviated by closing eyes, Staying still, the symptoms are aggravated by Opening eyes. Associated signs and symptoms: Pertinent positives: numbness,tingling, weakness to left arm and leg. Numbness tip of tongue and circumoral. Severity of symptoms: in the emergency department the symptoms have improved Pain is currently a 0 / 10. Patient's baseline: Neuro: alert and fully oriented, Motor: no deficits, Ambulation: walks without assistance, Speech: normal, The patient has a previous history of TIA. The patient has experienced a previous episode, approximately 4 months ago. The patient has not recently seen a physician. 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 - Social history:: Smoking status: Patient denies any tobacco usage or history of. ROS: 08:21 Constitutional: Negative for fever, chills, and weight loss, Eyes: Negative for injury, pm1 pain, redness, and discharge, ENT: Negative for injury, pain, and discharge, Neck: Negative for injury, pain, and swelling, Cardiovascular: Negative for chest pain, palpitations, and edema, Respiratory: Negative for shortness of breath, cough, wheezing, and pleuritic chest pain, Abdomen/GI: Negative for abdominal pain, nausea, vomiting, diarrhea, and constipation, Back: Negative for injury and pain, : Negative for injury, bleeding, discharge, and swelling, MS/Extremity: Negative for injury and deformity, Skin: Negative for injury, rash, and discoloration. 08:21 Neuro: Positive for dizziness, numbness, tingling, weakness, of the left arm and left leg, Numbness circumoral. Numbness to tip of tongue, Negative for headache. Exam: 08:21 Constitutional: This is a well developed, well nourished patient who is awake, alert, pm1 and in no acute distress. Head/Face: Normocephalic, atraumatic. 08:21 Back: No spinal tenderness. No costovertebral tenderness. Full range of motion. Skin: Warm, dry with normal turgor. Normal color with no rashes, no lesions, and no evidence of cellulitis. MS/ Extremity: Pulses equal, no cyanosis. Neurovascular intact. Full, normal range of motion. 08:21 Eyes: Extraocular movements: intact throughout, Visual hanson: are intact, Nystagmus: Bilateral rapid horizontal nystagmus when gazing right wards. Patient's dizziness resolved with closing both eyes. 08:21 Cardiovascular: Exam negative for acute changes, Rate: normal, Rhythm: regular, Pulses: no pulse deficits are appreciated, Heart sounds: normal, normal S1and S2. 08:21 Respiratory: Exam negative for acute changes, respiratory distress, shortness of breath, Breath sounds: are clear throughout. 08:21 Abdomen/GI: Exam negative for acute changes, Inspection: abdomen appears normal, Palpation: abdomen is soft and non-tender, in all quadrants. 08:21 Neuro: Orientation: is normal, Mentation: is normal, Cranial nerves: CN II- XII are normal as tested, Cerebellar function: normal finger to nose testing, Motor: moves all fours, strength is 5/5 in the right arm, left arm, right leg and left leg, strength is 4/5 in the left hand, Sensation: no obvious gross deficits. Vital Signs: 06:43 BP 151 / 99; Pulse 67; Resp 19; Temp 97.7; Pulse Ox 99% on R/A; Weight 104.33 kg; em Height 4 ft. 9 in. (144.78 cm); Pain 0/10; 09:58 BP 131 / 91; Pulse 64; Resp 16; Pulse Ox 99% on R/A; hb 10:31 BP 133 / 96; Pulse 69; Resp 15; Pulse Ox 100% on R/A; hb 11:39 BP 130 / 91; Pulse 67; Resp 16 S; Pulse Ox 100% on R/A; jd3 06:43 Body Mass Index 49.77 (104.33 kg, 144.78 cm) em NIH Stroke Scale Scores: 07:16 NIHSS Score: 0 pm1 MDM: 06:49 Patient medically screened. pm1 07:16 ED course: Patient woke up at 530 with symptoms. Patient reports no complaints prior to pm1 going to sleep. Due to unknown time of onset, patient is not a TPA candidate. 07:16 ED course: Patient seen by Dr. Baumann and he recommends CTA for further evaluation. pm1 Agrees that the patient is not a TPA candidate. 10:23 ED course: Patient CT and CTA are negative. Explained to patient would like MRI for pm1 further evaluation. Patient is agreeable. 10:53 Data reviewed: vital signs. Data interpreted: Pulse oximetry: on room air is 100 %. pm1 Interpretation: normal. 12:02 Counseling: I had a detailed discussion with the patient and/or guardian regarding: the pm1 historical points, exam findings, and any diagnostic results supporting the discharge/admit diagnosis, lab results, radiology results, the need for outpatient follow up, a neurologist, Dr. Guzman, to return to the emergency department if symptoms worsen or persist or if there are any questions or concerns that arise at home. 11/15 06:48 Order name: Basic Metabolic Panel; Complete Time: 07:32 em 11/15 06:48 Order name: CBC with Diff; Complete Time: 07:32 em 11/15 06:48 Order name: Protime (+inr); Complete Time: 07:32 em 11/15 06:48 Order name: Ptt, Activated; Complete Time: 07:32 em 11/15 07:12 Order name: Glucose, Ancillary Testing; Complete Time: 07:16 EDMS 11/15 07:19 Order name: UDS; Complete Time: 10:19 pm1 11/15 06:48 Order name: CT Stroke Brain w/o Contrast; Complete Time: 07:16 em 11/15 06:48 Order name: Stroke CXR 1 View; Complete Time: 08:11 em 11/15 07:15 Order name: CT Head Angio; Complete Time: 08:11 pm1 11/15 07:34 Order name: ETOH Level; Complete Time: 08:11 pm1 11/15 08:16 Order name: Urine Dipstick-Ancillary; Complete Time: 08:20 EDMS 11/15 09:02 Order name: Urine --Ancillary (enter results); Complete Time: 11:11 eb 11/15 10:23 Order name: MRI - Brain Wo Cont; Complete Time: 11:32 pm1 11/15 06:48 Order name: EKG; Complete Time: 06:49 em 11/15 06:48 Order name: Accucheck; Complete Time: 07:29 em 11/15 06:48 Order name: Cardiac monitoring; Complete Time: 07:29 em 11/15 06:48 Order name: EKG - Nurse/Tech; Complete Time: 07:50 em 11/15 06:48 Order name: IV Saline Lock; Complete Time: 07:29 em 11/15 06:48 Order name: Labs collected and sent; Complete Time: 07:29 em 11/15 06:48 Order name: NPO; Complete Time: 07:29 em 11/15 06:48 Order name: O2 Per Protocol; Complete Time: 07:29 em 11/15 06:48 Order name: O2 Sat Monitoring; Complete Time: 07:29 em 11/15 06:48 Order name: Stroke Swallow Screen; Complete Time: 07:50 em 11/15 07:35 Order name: Urine Dipstick-Ancillary (obtain specimen); Complete Time: 08:19 pm1 11/15 07:35 Order name: Urine Test (obtain specimen); Complete Time: 08:19 pm1 Administered Medications: 07:50 Drug: Aspirin 325 mg Route: PO; jd3 09:58 Follow up: Response: No adverse reaction hb 07:50 Drug: foLIC Acid 1 mg Route: IVPB; Site: right antecubital; jd3 12:24 Follow up: Response: No adverse reaction; IV Status: Completed infusion jd3 09:58 Drug: Meclizine 50 mg Route: PO; hb 10:50 Follow up: Response: No adverse reaction jd3 Disposition: 22:39 Co-signature as Attending Physician, Leeroy Gregory MD. [email or web address] Disposition Summary: 11/15/20 12:03 Discharge Ordered Location: Home pm1 Problem: new pm1 Symptoms: have improved pm1 Condition: Stable pm1 Diagnosis - Benign paroxysmal vertigo pm1 - Paresthesia of skin pm1 - Weakness pm1 Followup: pm1 - With: Emergency Department - When: As needed - Reason: Worsening of condition Followup: pm1 - With: Private Physician - When: 2 - 3 days - Reason: Recheck today's complaints, Continuance of care, Re-evaluation by your physician Followup: pm1 - With: Abdullahi Guzman MD - When: 2 - 3 days - Reason: Recheck today's complaints, Continuance of care, Re-evaluation by your physician Discharge Instructions: - Discharge Summary Sheet pm1 - Benign Positional Vertigo pm1 - Paresthesia pm1 - Weakness pm1 Forms: - Medication Reconciliation Form pm1 - Thank You Letter pm1 - Antibiotic Education pm1 - Prescription Opioid Use pm1 Prescriptions: - Meclizine 25 mg Oral Tablet - take 1 tablet by ORAL route every 8 hours As needed; 30 tablet; Refills: 0, pm1 Product Selection Permitted - ondansetron 8 mg Oral tablet,disintegrating - take 1 tablet by ORAL route every 8 hours As needed; 15 tablet; Refills: 0, pm1 Product Selection Permitted NIH Stroke Scale - NIH Stroke Score Date: 11/15/2020 Time: 07:16 Total Score = 0 1a. Level of Consciousness (LOC) - 0(Alert) 1b. Level of Consciousness (LOC) (Month \T\ Age) - 0(Both) 1c. LOC Commands (Open \T\ Closes Eyes/Ammunition Assembly I Laborer) - 0(Both) 2. Best Gaze (Lateral Gaze Paresis) - 0(Normal) 3. Visual Field Loss - 0(No visual loss) 4. Facial Palsy - 0(Normal) 5a. Left Arm: Motor (10-second hold) - 0(No drift) 5b. Right Arm: Motor (10-second hold) - 0(No drift) 6a. Left Leg: Motor (5-second hold - always test supine) - 0(No drift) 6b. Right Leg: Motor (5-second hold - always test supine) - 0(No drift) 7. Limb Ataxia (finger/nose \T\ heel/tobias - test with eyes open) - 0(Absent) 8. Sensory Loss (pinprick arms/legs/face) - 0(Normal) 9. Best Language: Aphasia (description/naming/reading) - 0(No aphasia) 10. Dysarthria (speech clarity - read or repeat words) - 0(Normal) 11. Extinction and Inattention (visual/tactile/auditory/spatial/personal) - 0(No abnormality) Initials: pm1 Signatures: Dispatcher [employer] Jeremy Puri RN RN em Marinas, Patrick, NP FRUIT CUTTER pm1 Aleena Batista RN RN hb Davies, Jonathon, RN RN jd3 Holmes, Maurice, MD MD 7
--- NOTE | 2020-11-15 12:04 | ER ---
Nurse's Notes [facility] Name: Anum Martinez Age: 25 yrs Sex: Female : 1995 Arrival Date: 11/15/2020 Time: 06:36 Bed 3 Private MD: Diagnosis: Benign paroxysmal vertigo;Paresthesia of skin;Weakness Presentation: 11/15 06:43 Chief complaint: Patient states: dizziness, lip tingling, left arm weakness numbness em and tingling started at 0530, had a previous TIA in July. Coronavirus screen: Client denies travel out of the [place] in the last 14 days. Ebola Screen: Patient negative for fever greater than or equal to 101.5 degrees Fahrenheit, and additional compatible Ebola Virus Disease symptoms Patient denies exposure to infectious person. Patient denies travel to an Ebola-affected area in the 21 days before illness onset. No symptoms or risks identified at this time. Initial Sepsis Screen: Does the patient meet any 2 criteria? No. Patient's initial sepsis screen is negative. Does the patient have a suspected source of infection? No. Patient's initial sepsis screen is negative. Risk Assessment: Do you want to hurt yourself or someone else? Patient reports no desire to harm self or others. Onset of symptoms was November 15, 2020. 06:43 Method Of Arrival: Wheelchair em 06:43 Acuity: NATALI 2 em FIBERGLASS LAMINATOR: 06:46 LMP 11/15/2020 em Historical: - Allergies: 06:46 No Known Allergies; em - PMHx: 06:46 Home O2 2-3 L NC s/p COVID; em - Immunization history:: Client reports having NOT received the Covid vaccine. - Social history:: Smoking status: Patient denies any tobacco usage or history of. Screenin:05 Abuse screen: Denies threats or abuse. Nutritional screening: No deficits noted. jd3 Tuberculosis screening: No symptoms or risk factors identified. VAN Screening: Arm Drift: Patient shows no arm weakness. Patient is VAN negative. Patient has been NPO before screening. The patient is alert, able to follow commands. The patient does not exhibit slurred or garbled speech The patient is not exhibiting difficulty speaking. The patient does not exhibit difficulty understanding words. The patient is able to swallow own secretions with no drooling or need for suction. Patient tolerated one teaspoon of water. No drooling, immediate coughing, gurgling, or clearing of the throat was noted. The patient tolerated 90mL of water. No drooling, immediate coughing, gurgling, or clearing of the throat was noted. The patient passed the bedside swallow screening. Oral medications may be given as ordered. Contact Physician for further diet orders. Provider notified of bedside swallow screening results: Jay Jay Hdez BUILDING CONSTRUCTION CONTRACTOR. Fall Risk Ambulatory Aid- None/Bed Rest/Nurse Assist (0 pts). Gait- Normal/Bed Rest/Wheelchair (0 pts) Mental Status- Oriented to own ability (0 pts). Total Hagan Fall Scale indicates No Risk (0-24 pts). Assessment: 07:30 General: Appears in no apparent distress. comfortable, Behavior is calm, cooperative, jd3 appropriate for age. Pain: Denies pain. Neuro: Level of Consciousness is awake, alert, obeys commands, Oriented to person, place, time, situation, Reports dizziness, Denies weakness numbness photophobia. Cardiovascular: Denies chest pain, Capillary refill < 3 seconds Patient's skin is warm and dry. Rhythm is regular. Respiratory: Airway is patent Respiratory effort is even, unlabored, Respiratory pattern is regular, symmetrical, Denies cough, shortness of breath. GI: Abdomen is round non-distended, Abd is soft and non tender X 4 quads. Reports nausea. : No signs and/or symptoms were reported regarding the genitourinary system. EENT: No signs and/or symptoms were reported regarding the EENT system. Derm: Skin is intact, Skin is dry, Skin is normal, Skin temperature is warm. Musculoskeletal: Circulation, motion, and sensation intact. Range of motion: intact in all extremities. 09:00 Reassessment: Patient appears in no apparent distress at this time. No changes from jd3 previously documented assessment. Patient and/or family updated on plan of care and expected duration. Pain level reassessed. Patient is alert, oriented x 3, equal unlabored respirations, skin warm/dry/pink. 10:32 Reassessment: Patient appears in no apparent distress at this time. Patient and/or hb family updated on plan of care and expected duration. Pain level reassessed. Patient is alert, oriented x 3, equal unlabored respirations, skin warm/dry/pink. 11:39 Reassessment: Patient appears in no apparent distress at this time. No changes from jd3 previously documented assessment. Patient and/or family updated on plan of care and expected duration. Pain level reassessed. Patient is alert, oriented x 3, equal unlabored respirations, skin warm/dry/pink. 12:24 Reassessment: Patient appears in no apparent distress at this time. Patient and/or jd3 family updated on plan of care and expected duration. Pain level reassessed. Patient is alert, oriented x 3, equal unlabored respirations, skin warm/dry/pink. Patient states feeling better. Patient states symptoms have improved. Vital Signs: 06:43 BP 151 / 99; Pulse 67; Resp 19; Temp 97.7; Pulse Ox 99% on R/A; Weight 104.33 kg; em Height 4 ft. 9 in. (144.78 cm); Pain 0/10; 09:58 BP 131 / 91; Pulse 64; Resp 16; Pulse Ox 99% on R/A; hb 10:31 BP 133 / 96; Pulse 69; Resp 15; Pulse Ox 100% on R/A; hb 11:39 BP 130 / 91; Pulse 67; Resp 16 S; Pulse Ox 100% on R/A; jd3 06:43 Body Mass Index 49.77 (104.33 kg, 144.78 cm) em NIH Stroke Scale Scores: 07:16 NIHSS Score: 0 pm1 ED Course: 06:36 Patient arrived in ED. bp1 06:46 Triage completed. em 06:46 Arm band placed on. em 06:49 Jay Jay Hdez NP is PHCP. pm1 06:49 Leeroy Gregory MD is Attending Physician. pm1 06:57 CT Stroke Brain w/o Contrast In Process Unspecified. EDMS 07:11 Stroke CXR 1 View In Process Unspecified. EDMS 07:28 Cam Bergeron RN is Primary Nurse. jd3 07:38 EKG done, by ED staff, reviewed by Jay Jay Hdez NP. dh3 07:51 Patient has correct armband on for positive identification. Bed in low position. Call jd3 light in reach. Side rails up X 1. classroom monitor on. Pulse ox on. NIBP on. 08:00 CT Head Angio In Process Unspecified. EDMS 11:15 MRI - Brain Wo Cont In Process Unspecified. EDMS 12:05 Abdullahi Guzman MD is Referral Physician. pm1 12:23 No provider procedures requiring assistance completed. IV discontinued, intact, jd3 bleeding controlled, No redness/swelling at site. Pressure dressing applied. Administered Medications: 07:50 Drug: Aspirin 325 mg Route: PO; jd3 09:58 Follow up: Response: No adverse reaction hb 07:50 Drug: foLIC Acid 1 mg Route: IVPB; Site: right antecubital; jd3 12:24 Follow up: Response: No adverse reaction; IV Status: Completed infusion jd3 09:58 Drug: Meclizine 50 mg Route: PO; hb 10:50 Follow up: Response: No adverse reaction jd3 Outcome: 12:03 Discharge ordered by MD. pm1 12:23 Discharged to home ambulatory, with family. jd3 12:23 Condition: stable 12:23 Discharge instructions given to family, Instructed on discharge instructions, follow up and referral plans. medication usage, Demonstrated understanding of instructions, follow-up care, medications, Prescriptions given X 2. 12:25 Patient left the ED. jd3 NIH Stroke Scale - NIH Stroke Score Date: 11/15/2020 Time: 07:16 Total Score = 0 1a. Level of Consciousness (LOC) - 0(Alert) 1b. Level of Consciousness (LOC) (Month \T\ Age) - 0(Both) 1c. LOC Commands (Open \T\ Closes Eyes/[employer] Bus Dispatcher) - 0(Both) 2. Best Gaze (Lateral Gaze Paresis) - 0(Normal) 3. Visual Field Loss - 0(No visual loss) 4. Facial Palsy - 0(Normal) 5a. Left Arm: Motor (10-second hold) - 0(No drift) 5b. Right Arm: Motor (10-second hold) - 0(No drift) 6a. Left Leg: Motor (5-second hold - always test supine) - 0(No drift) 6b. Right Leg: Motor (5-second hold - always test supine) - 0(No drift) 7. Limb Ataxia (finger/nose \T\ heel/tobias - test with eyes open) - 0(Absent) 8. Sensory Loss (pinprick arms/legs/face) - 0(Normal) 9. Best Language: Aphasia (description/naming/reading) - 0(No aphasia) 10. Dysarthria (speech clarity - read or repeat words) - 0(Normal) 11. Extinction and Inattention (visual/tactile/auditory/spatial/personal) - 0(No abnormality) Initials: pm1 Signatures: Dispatcher [employer] Jeremy Puri, RN RN Jay Jay Villarreal, BELLA BUILDING CONSTRUCTION CONTRACTOR pm1 Aleena Batista RN RN Kassi Weber 3 Cam Bergeron RN RN jd3 Carmencita Wayne [facility]
[2020-11-15 12:31] VITALS: TEMP 97.7
[2020-11-15 12:34] VITALS: O2SAT 100
[2020-11-15 12:35] VITALS: BP 130/91
== END 2020-11-15 12:25 | disposition home or self-care (01) ==
LOC: ER 06:35
DX: H81.10 Benign paroxysmal vertigo, unspecified ear (principal); R53.1 Weakness; R20.2 Paresthesia of skin; Z99.81 Dependence on supplemental oxygen; Z86.16 Personal history of COVID-19
CPT/HCPCS: 96365; 93005; 85025; 80048; 36415; 80320; 81025; 85610; 82947; 85730; 81003; 80307; 70496; 70450; 71045; 70551; 99284; 96366; Q9967

== ENCOUNTER 2022-10-08 23:34 | Emergency (ER) | payer OTHER ==
[2022-10-09 00:19] LABS: Absolute Lymphocytes (CBC) 3.6 K/uL (0.7-4.9); Hematocrit 40.7 % (36.0-45.0); Lymphocytes % 31.3 % (15.3-44.8); MPV 7.3 fL (7.6-11.3); RBC Red Blood Cell Count 4.48 M/uL (3.86-4.86)
[2022-10-09] MEDS ORDERED: TENECTEPLASE 50 MG/10 ML VIAL IV ONE (00:38)
--- NOTE | 2022-10-09 00:40 | EDPHYS ---
Physician Documentation [facility] Name: Anum Figueroa Age: 26 yrs Sex: Female : 1995 Arrival Date: 10/08/2022 Time: 23:34 Bed 2 Private MD: ED Physician Manuel Manuel HPI: 10/09 00:04 This 26 yrs old Female presents to ER via Ambulatory with complaints of kdr Numbness Of Lips, LEFT SIDE NUMBNESS, Shortness Of Breath. 00:04 Patient presents with left-sided weakness, left face and left arm. This started about kdr 10 PM tonight. Patient has had a prior TIA secondary to COVID but without residual weakness. Patient otherwise is in her usual state of health. She has no other significant health issues at this time. Patient otherwise appears nonacute.. Onset: The symptoms/episode began/occurred suddenly, at 22:00. Severity of symptoms: At their worst the symptoms were mild in the emergency department the symptoms are unchanged. The patient has not experienced similar symptoms in the past. The patient has not recently seen a physician. SOLUTION DIRECTOR: 10/08 23:53 LMP 09/09/2022 vc1 Historical: - Allergies: 23:50 No Known Allergies; vc1 - PMHx: 23:50 TIA; vc1 - PSHx: 23:50 None; vc1 - Immunization history:: Client reports receiving the 2nd dose of the Covid vaccine, Pfizer. - Social history:: Smoking status: Patient denies any tobacco usage or history of. ROS: 10/09 00:04 Constitutional: Negative for fever, chills, and weight loss, Eyes: Negative for injury, kdr pain, redness, and discharge, ENT: Negative for injury, pain, and discharge, Neck: Negative for injury, pain, and swelling, Cardiovascular: Negative for chest pain, palpitations, and edema, Respiratory: Negative for shortness of breath, cough, wheezing, and pleuritic chest pain, Abdomen/GI: Negative for abdominal pain, nausea, vomiting, diarrhea, and constipation, Back: Negative for injury and pain, : Negative for injury, bleeding, discharge, and swelling, MS/Extremity: Negative for injury and deformity, Skin: Negative for injury, rash, and discoloration, Psych: Negative for depression, anxiety, suicide ideation, homicidal ideation, and hallucinations, Allergy/Immunology: Negative for hives, rash, and allergies, Endocrine: Negative for neck swelling, polydipsia, polyuria, polyphagia, and marked weight changes, Hematologic/Lymphatic: Negative for swollen nodes, abnormal bleeding, and unusual bruising. Neuro: Positive for weakness, of the left side of head and left arm. Exam: 00:04 Constitutional: This is a well developed, well nourished patient who is awake, alert, kdr and in no acute distress. Head/Face: Normocephalic, atraumatic. 00:04 Neck: Trachea midline, no thyromegaly or masses palpated, and no cervical lymphadenopathy. Supple, full range of motion without nuchal rigidity, or vertebral point tenderness. No Meningismus. Chest/axilla: Normal chest wall appearance and motion. Nontender with no deformity. No lesions are appreciated. Cardiovascular: Regular rate and rhythm with a normal S1 and S2. No gallops, murmurs, or rubs. Normal PMI, no JVD. No pulse deficits. Respiratory: Lungs have equal breath sounds bilaterally, clear to auscultation and percussion. No rales, rhonchi or wheezes noted. No increased work of breathing, no retractions or nasal flaring. Abdomen/GI: Soft, non-tender, with normal bowel sounds. No distension or tympany. No guarding or rebound. No evidence of tenderness throughout. Back: No spinal tenderness. No costovertebral tenderness. Full range of motion. Skin: Warm, dry with normal turgor. Normal color with no rashes, no lesions, and no evidence of cellulitis. MS/ Extremity: Pulses equal, no cyanosis. Neurovascular intact. Full, normal range of motion. Psych: Awake, alert, with orientation to person, place and time. Behavior, mood, and affect are within normal limits. 00:04 Head/face: Noted is Slight asymmetry of her face on the left side. 00:04 Neuro: Motor: moves all fours, strength is 4/5 in the left side of head and left arm. Vital Signs: 10/08 23:53 BP 153 / 108; Pulse 75; Temp 97.9; Pulse Ox 100% ; Weight 106.14 kg; Height 4 ft. 10 vc1 in. ; Pain 0/10; 10/09 00:15 BP 150 / 87; Pulse 82; Resp 16; Pulse Ox 99% on R/A; kl 00:30 Weight 114.31 kg (M); 00:30 Body Mass Index 52.67 (114.31 kg, 147.32 cm) 10/08 23:53 Pain Scale: Adult vc1 NIH Stroke Scale Scores: 10/08 23:50 NIHSS Score: 3 kl 10/09 01:23 NIHSS Score: 3 kdr 01:32 NIHSS Score: 1 MDM: 00:39 Patient medically screened. kdr 00:42 Data reviewed: vital signs, nurses notes, lab test result(s), radiologic studies. kdr 10/08 23:46 Order name: Basic Metabolic Panel kdr 10/08 23:46 Order name: CBC with Diff kdr 10/08 23:46 Order name: Hepatic Function kdr 10/08 23:46 Order name: High Sensitivity Troponin kdr 10/08 23:46 Order name: Magnesium kdr 10/08 23:46 Order name: Protime (+inr) kdr 10/08 23:46 Order name: Ptt, Activated kdr 10/09 00:21 Order name: Glucose, Ancillary Testing EDMS 10/08 23:46 Order name: CT Stroke Brain w/o Contrast kdr 10/08 23:46 Order name: Stroke CXR 1 View kdr 10/08 23:46 Order name: EKG; Complete Time: 23:46 kdr 10/08 23:46 Order name: Accucheck; Complete Time: 00:26 kdr 10/08 23:46 Order name: Cardiac monitoring; Complete Time: 00:11 kdr 10/08 23:46 Order name: EKG - Nurse/Tech; Complete Time: 00:11 kdr 10/08 23:46 Order name: IV Saline Lock; Complete Time: 00:23 kdr 10/08 23:46 Order name: Labs collected and sent; Complete Time: 00:11 kdr 10/08 23:46 Order name: NPO kdr 10/08 23:46 Order name: O2 Per Protocol kdr 10/08 23:46 Order name: O2 Sat Monitoring; Complete Time: 00:23 kdr 10/08 23:46 Order name: Stroke Swallow Screen; Complete Time: 00:11 kdr Administered Medications: 00:34 Drug: TNK FOR STROKE - Tenecteplase IV 0.25 mg/kg {Co-Signature: jb4 (graeme Cabrales RN).} {Note: 25mg.} Route: IV; Rate: per protocol; Site: left antecubital; Disposition Summary: 10/09/22 00:39 Transfer Ordered Transfer Location: [facility] kdr Reason: Higher level of care kdr Condition: Fair kdr Problem: new kdr Symptoms: are unchanged kdr Accepting Physician: Dr. Hook(10/09/22 01:39) jb4 Diagnosis - Ischemic stroke -left face, left upper extremity weakness kdr Forms: - Medication Reconciliation Form kdr - SBAR form kdr NIH Stroke Scale - NIH Stroke Score Date: 10/08/2022 Time: 23:50 Total Score = 3 10. Dysarthria (speech clarity - read or repeat words) - 0(Normal) 11. Extinction and Inattention (visual/tactile/auditory/spatial/personal) - 0(No abnormality) 1a. Level of Consciousness (LOC) - 0(Alert) 1b. Level of Consciousness (LOC) (Month \T\ Age) - 0(Both) 1c. LOC Commands (Open \T\ Closes Eyes/Stock Selector) - 0(Both) 2. Best Gaze (Lateral Gaze Paresis) - 0(Normal) 3. Visual Field Loss - 0(No visual loss) 4. Facial Palsy - 1(Minor Paralysis) 5a. Left Arm: Motor (10-second hold) - 1(Drift) 5b. Right Arm: Motor (10-second hold) - 0(No drift) 6a. Left Leg: Motor (5-second hold - always test supine) - 0(No drift) 6b. Right Leg: Motor (5-second hold - always test supine) - 0(No drift) 7. Limb Ataxia (finger/nose \T\ heel/tobias - test with eyes open) - 0(Absent) 8. Sensory Loss (pinprick arms/legs/face) - 1(Mild to moderate loss) 9. Best Language: Aphasia (description/naming/reading) - 0(No aphasia) Initials: graeme NIH Stroke Scale - NIH Stroke Score Date: 10/09/2022 Time: 01:23 Total Score = 3 10. Dysarthria (speech clarity - read or repeat words) - 0(Normal) 11. Extinction and Inattention (visual/tactile/auditory/spatial/personal) - 0(No abnormality) 1a. Level of Consciousness (LOC) - 0(Alert) 1b. Level of Consciousness (LOC) (Month \T\ Age) - 0(Both) 1c. LOC Commands (Open \T\ Closes Eyes/Stock Selector) - 0(Both) 2. Best Gaze (Lateral Gaze Paresis) - 0(Normal) 3. Visual Field Loss - 0(No visual loss) 4. Facial Palsy - 1(Minor Paralysis) 5a. Left Arm: Motor (10-second hold) - 1(Drift) 5b. Right Arm: Motor (10-second hold) - 0(No drift) 6a. Left Leg: Motor (5-second hold - always test supine) - 0(No drift) 6b. Right Leg: Motor (5-second hold - always test supine) - 0(No drift) 7. Limb Ataxia (finger/nose \T\ heel/tobias - test with eyes open) - 0(Absent) 8. Sensory Loss (pinprick arms/legs/face) - 1(Mild to moderate loss) 9. Best Language: Aphasia (description/naming/reading) - 0(No aphasia) Initials: [facility] NIH Stroke Scale - NIH Stroke Score Date: 10/09/2022 Time: :32 Total Score = 1 10. Dysarthria (speech clarity - read or repeat words) - 0(Normal) 11. Extinction and Inattention (visual/tactile/auditory/spatial/personal) - 0(No abnormality) 1a. Level of Consciousness (LOC) - 0(Alert) 1b. Level of Consciousness (LOC) (Month \T\ Age) - 0(Both) 1c. LOC Commands (Open \T\ Closes Eyes/Stock Selector) - 0(Both) 2. Best Gaze (Lateral Gaze Paresis) - 0(Normal) 3. Visual Field Loss - 0(No visual loss) 4. Facial Palsy - 0(Normal) 5a. Left Arm: Motor (10-second hold) - 0(No drift) 5b. Right Arm: Motor (10-second hold) - 0(No drift) 6a. Left Leg: Motor (5-second hold - always test supine) - 0(No drift) 6b. Right Leg: Motor (5-second hold - always test supine) - 0(No drift) 7. Limb Ataxia (finger/nose \T\ heel/tobias - test with eyes open) - 0(Absent) 8. Sensory Loss (pinprick arms/legs/face) - 1(Mild to moderate loss) 9. Best Language: Aphasia (description/naming/reading) - 0(No aphasia) Initials: graeme Signatures: Dispatcher [employer] My Tapia RN RN kl Rittger, Kevin, MD MD kdr Shankar Cabrales RN RN jb4 Roya Mitchell RN RN vc1 Shankar Cabrales RN jb4 Corrections: (The following items were deleted from the chart) 01:23 00:04 NIHSS Score: 2 kdr kdr 01:39 00:39 Dr. Hook kdr jb4
--- NOTE | 2022-10-09 00:40 | ER ---
Nurse's Notes [facility] Name: Anum Figueroa Age: 26 yrs Sex: Female : 1995 Arrival Date: 10/08/2022 Time: 23:34 Bed 2 Private MD: Diagnosis: Ischemic stroke -left face, left upper extremity weakness Presentation: 10/08 23:42 Chief complaint: Patient states: I have shortness of breath my lips are tingling, my vc1 left arm is feeling tingling and numbness. About 3 years ago I had a TIA it felt similiar. Coronavirus screen: Client denies travel out of the [place] in the last 14 days. At this time, the client does not indicate any symptoms associated with coronavirus-19. Ebola Screen: Patient negative for fever greater than or equal to 101.5 degrees Fahrenheit, and additional compatible Ebola Virus Disease symptoms Patient denies exposure to infectious person. Patient denies travel to an Ebola-affected area in the 21 days before illness onset. No symptoms or risks identified at this time. Onset of symptoms was October 08, 2022 at 22:00. 23:42 Method Of Arrival: Ambulatory vc1 23:42 Acuity: NATALI 2 vc1 23:54 Initial Sepsis Screen: Does the patient meet any 2 criteria? No. Patient's initial vc1 sepsis screen is negative. Does the patient have a suspected source of infection? No. Patient's initial sepsis screen is negative. Risk Assessment: Do you want to hurt yourself or someone else? Patient reports no desire to harm self or others. 23:54 An acute neurological deficit is present. Pre-hospital glucose is not applicable to kl this patient. Triage Assessment: 23:50 The onset of the patients symptoms was The onset of the patients symptoms was less than kl three hours ago. 23:51 General: Appears in no apparent distress. uncomfortable, Behavior is cooperative, vc1 anxious. Pain: Denies pain. EENT: No deficits noted. Neuro: Level of Consciousness is awake, alert, obeys commands, Oriented to person, place, time, situation, Appropriate for age Speech is normal, Facial symmetry appears normal. Neuro: Le Agitation-Sedation Scale (RASS): 0 - Alert and Calm Reports weakness in left arm. Cardiovascular: No deficits noted. Respiratory: Reports shortness of breath at rest Airway is patent Respiratory effort is even, unlabored, Respiratory pattern is regular, symmetrical, Onset: The symptoms/episode began/occurred today, the patient has mild shortness of breath. GI: No deficits noted. No signs and/or symptoms were reported involving the gastrointestinal system. : No deficits noted. No signs and/or symptoms were reported regarding the genitourinary system. Derm: No deficits noted. No signs and/or symptoms reported regarding the dermatologic system. Musculoskeletal: No deficits noted. No signs and/or symptoms reported regarding the musculoskeletal system. SQL ANALYST: 23:53 LMP 09/09/2022 vc1 Stroke Activation: Physician: Stroke Attending; Name: ; Notified At: ; Arrived At: Physician: Chief Stroke Resident; Name: ; Notified At: ; Arrived At: Physician: Stroke Resident; Name: ; Notified At: ; Arrived At: Physician: ED Attending; Name: jj; Notified At: 23:42; Arrived At: 23:50 Physician: ED Resident; Name: ; Notified At: ; Arrived At: Historical: - Allergies: 23:50 No Known Allergies; vc1 - PMHx: 23:50 TIA; vc1 - PSHx: 23:50 None; vc1 - Immunization history:: Client reports receiving the 2nd dose of the Covid vaccine, 2,10E+07. - Social history:: Smoking status: Patient denies any tobacco usage or history of. Screenin:50 VAN Screening: Arm Drift: Minor drift. Visual Disturbance: No visual disturbance noted. kl Aphasia: No aphasia noted. Neglect: No neglect noted. [place] Swallow Protocol Exclusion Criteria: Brief Cognitive Screen What is your name? Normal, Where are you right now? Normal, What year is it? Normal. Oral Mechanism Examination Facial Symmetry: Normal, Motion: Normal, Lip Closure: Normal, Oral Mechanism Result: Normal. 3 oz Water Swallow Challenge: Pt able to drink all water without stopping, coughing, choking or throat clearing: Yes. 23:53 [facility] ED Fall Risk Assessment (Adult) History of falling in the last 3 months, vc1 including since admission No falls in past 3 months (0 pts) Confusion or Disorientation No (0 pts) Intoxicated or Sedated No (0 pts) Impaired Gait No (0 pts) Mobility Assist Device Used No (0 pt) Altered Elimination Yes (1 pt) Score/Fall Risk Level 0 - 2 = Low Risk Oriented to surroundings, Maintained a safe environment, Educated pt \T\ family on fall prevention, incl call for assistance when getting out of bed. Abuse screen: Denies threats or abuse. Nutritional screening: No deficits noted. Tuberculosis screening: No symptoms or risk factors identified. Assessment: 23:50 TNKase (Tenecteplase) Screening: Indications: Definite evidence of stroke, ischemic, kl embolic, or hypertensive: Yes. Treatment will start within 4.5 hours onset of symptoms: Yes. No evidence of intracranial hemorrhage or CT of head and no evidence of peripheral hemorrhage or recent CVA: Yes. Consent for thrombolytic therapy: Yes. Contraindications:. 10/09 01:49 Cardiovascular: Rhythm is sinus rhythm. Respiratory: No deficits noted. Airway is kl patent Trachea midline Respiratory effort is even, unlabored, Breath sounds are clear bilaterally. Vital Signs: 10/08 23:53 BP 153 / 108; Pulse 75; Temp 97.9; Pulse Ox 100% ; Weight 106.14 kg; Height 4 ft. 10 vc1 in. ; Pain 0/10; 10/09 00:15 BP 150 / 87; Pulse 82; Resp 16; Pulse Ox 99% on R/A; kl 00:30 Weight 114.31 kg (M); kl 00:30 Body Mass Index 52.67 (114.31 kg, 147.32 cm) 10/08 23:53 Pain Scale: Adult vc1 NIH Stroke Scale Scores: 10/08 23:50 NIHSS Score: 3 kl 10/09 01:23 NIHSS Score: 3 kdr 01:32 NIHSS Score: 1 ED Course: 10/08 23:37 Patient arrived in ED. jj6 23:44 Triage completed. vc1 23:45 Manuel Manuel MD is Attending Physician. kdr 23:50 Arm band placed on right wrist. vc1 10/09 00:01 CT Stroke Brain w/o Contrast In Process Unspecified. EDMS 00:10 Missed attempt(s): 22 gauge in right antecubital area. Bleeding controlled, band aid pf1 applied, catheter tip intact. 00:12 Basic Metabolic Panel Sent. kl 00:12 CBC with Diff Sent. kl 00:12 Hepatic Function Sent. kl 00:12 High Sensitivity Troponin Sent. kl 00:12 Magnesium Sent. kl 00:12 Protime (+inr) Sent. kl 00:12 Ptt, Activated Sent. kl 00:23 EKG done, by ED staff, reviewed by Manuel Manuel MD. Inserted saline lock: 22 gauge in wm left antecubital area, using aseptic technique. Blood collected. 00:26 Stroke CXR 1 View In Process Unspecified. EDMS 00:33 Initiated transfer with Maria Isabel Escobar at [facility]. rv1 00:[address] Romo at [facility] to [address] [place] [address] Rm 8. rv1 01:48 No provider procedures requiring assistance completed. Patient transferred, IV remains kl in place. Administered Medications: 00:34 Drug: TNK FOR STROKE - Tenecteplase IV 0.25 mg/kg {Co-Signature: eden (graeme Cabrales RN).} {Note: 25mg.} Route: IV; Rate: per protocol; Site: left antecubital; Medication: 10/08 23:54 VIS not applicable for this client. vc1 Outcome: 10/09 00:39 ER care complete, transfer ordered by . kdr 01:39 Patient left the ED. jb4 01:49 Transferred by helicopter to [facility], Transfer form completed. kl X-rays sent w/ patient. 01:49 Condition: improved 01:49 Discharge instructions given to patient, family, Instructed on discharge instructions, the need for transfer, Demonstrated understanding of instructions. NIH Stroke Scale - NIH Stroke Score Date: 10/08/2022 Time: 23:50 Total Score = 3 10. Dysarthria (speech clarity - read or repeat words) - 0(Normal) 11. Extinction and Inattention (visual/tactile/auditory/spatial/personal) - 0(No abnormality) 1a. Level of Consciousness (LOC) - 0(Alert) 1b. Level of Consciousness (LOC) (Month \T\ Age) - 0(Both) 1c. LOC Commands (Open \T\ Closes Eyes/Stem Sizer) - 0(Both) 2. Best Gaze (Lateral Gaze Paresis) - 0(Normal) 3. Visual Field Loss - 0(No visual loss) 4. Facial Palsy - 1(Minor Paralysis) 5a. Left Arm: Motor (10-second hold) - 1(Drift) 5b. Right Arm: Motor (10-second hold) - 0(No drift) 6a. Left Leg: Motor (5-second hold - always test supine) - 0(No drift) 6b. Right Leg: Motor (5-second hold - always test supine) - 0(No drift) 7. Limb Ataxia (finger/nose \T\ heel/tobias - test with eyes open) - 0(Absent) 8. Sensory Loss (pinprick arms/legs/face) - 1(Mild to moderate loss) 9. Best Language: Aphasia (description/naming/reading) - 0(No aphasia) Initials: NIH Stroke Scale - NIH Stroke Score Date: 10/09/2022 Time: 01:23 Total Score = 3 10. Dysarthria (speech clarity - read or repeat words) - 0(Normal) 11. Extinction and Inattention (visual/tactile/auditory/spatial/personal) - 0(No abnormality) 1a. Level of Consciousness (LOC) - 0(Alert) 1b. Level of Consciousness (LOC) (Month \T\ Age) - 0(Both) 1c. LOC Commands (Open \T\ Closes Eyes/Stem Sizer) - 0(Both) 2. Best Gaze (Lateral Gaze Paresis) - 0(Normal) 3. Visual Field Loss - 0(No visual loss) 4. Facial Palsy - 1(Minor Paralysis) 5a. Left Arm: Motor (10-second hold) - 1(Drift) 5b. Right Arm: Motor (10-second hold) - 0(No drift) 6a. Left Leg: Motor (5-second hold - always test supine) - 0(No drift) 6b. Right Leg: Motor (5-second hold - always test supine) - 0(No drift) 7. Limb Ataxia (finger/nose \T\ heel/tobias - test with eyes open) - 0(Absent) 8. Sensory Loss (pinprick arms/legs/face) - 1(Mild to moderate loss) 9. Best Language: Aphasia (description/naming/reading) - 0(No aphasia) Initials: [facility] NIH Stroke Scale - NIH Stroke Score Date: 10/09/2022 Time: 01:32 Total Score = 1 10. Dysarthria (speech clarity - read or repeat words) - 0(Normal) 11. Extinction and Inattention (visual/tactile/auditory/spatial/personal) - 0(No abnormality) 1a. Level of Consciousness (LOC) - 0(Alert) 1b. Level of Consciousness (LOC) (Month \T\ Age) - 0(Both) 1c. LOC Commands (Open \T\ Closes Eyes/Stem Sizer) - 0(Both) 2. Best Gaze (Lateral Gaze Paresis) - 0(Normal) 3. Visual Field Loss - 0(No visual loss) 4. Facial Palsy - 0(Normal) 5a. Left Arm: Motor (10-second hold) - 0(No drift) 5b. Right Arm: Motor (10-second hold) - 0(No drift) 6a. Left Leg: Motor (5-second hold - always test supine) - 0(No drift) 6b. Right Leg: Motor (5-second hold - always test supine) - 0(No drift) 7. Limb Ataxia (finger/nose \T\ heel/tobias - test with eyes open) - 0(Absent) 8. Sensory Loss (pinprick arms/legs/face) - 1(Mild to moderate loss) 9. Best Language: Aphasia (description/naming/reading) - 0(No aphasia) Initials: kl Signatures: Dispatcher [employer] EDMS My Botello RN RN kl Manuel Manuel MD MD [facility] Shankar Cabrales, SERG RN jb4 Yaquelin Driver Jennifer jj6 Roya Mitchell RN RN vc1 Shavonne Cr RN RN pf1 Jannie Lopez rv1 Shankar Cabrales RN jb4 Corrections: (The following items were deleted from the chart) 01:12 08 23:50 NIHSS Score: 2 kl kl
[2022-10-09 01:04] LABS: ALT/SGPT 84 U/L (13-56); Albumin 3.4 g/dL (3.4-5.0); Alkaline Phosphatase 79 U/L (45-117); BUN Blood Urea Nitrogen 9 mg/dL (7-18); Bicarbonate 27 mEq/L (21-32); Bilirubin Total 0.2 mg/dL (0.2-1.0); Glomerular Filtration Rate 111 ml/min (=/>90); Glucose Level 127 mg/dL (74-106); Protein, Total 7.1 g/dL (6.4-8.2); Sodium Level 139 mEq/L (136-145); Troponin High Sensitivity 4.2 pg/mL (<58.9)
[2022-10-09 01:05] LABS: AST/SGOT 35 U/L (15-37); Bilirubin Direct < 0.1 mg/dL (0-0.2); Bilirubin Indirect, Calculated ND mg/dL (0.2-0.8); Magnesium 1.9 mg/dL (1.6-2.4); Potassium 3.6 mEq/L (3.5-5.1)
[2022-10-09 01:10] LABS: Protime INR 0.93
[2022-10-09 02:09] VITALS: TEMP 97.9
[2022-10-09 02:15] VITALS: BP 150/87; O2SAT 99
--- NOTE | 2022-10-10 14:35 | RAD REPORT ---
EXAM DESCRIPTION: RAD - Chest Single View - 10/09/2022 12:25 am CLINICAL HISTORY: 26 years Female weakness COMPARISON: None TECHNIQUE: AP view of the chest was obtained. FINDINGS: Cardiac size is within normal limits. Central vessels are not increased. No infiltrates or effusions seen. No consolidation. No pneumothorax. IMPRESSION: No active disease. Electronically signed by: Shell Blake MD 10/09/2022 12:50 AM CDT Due to temporary technical issues with the PACS/Fluency reporting system, reports are being signed by the in house radiologist without review as a courtesy to ensure prompt reporting. The interpreting r adiologist is fully responsible for the content of the report.
--- NOTE | 2022-10-10 15:29 | RAD REPORT ---
EXAM DESCRIPTION: CT - Ct Stroke Brain Wo Cont - 10/09/2022 6:32 am ADDENDUM #1 These findings were communicated to Dr. RAFAEL BRADFORD on 10/09/2022 12:15 AM (ONLINE SERVICES MANAGER). Electronically signed by: Bradly Hernandez MD 10/09/2022 12:59 AM CDT End of Addendum EXAM DESCRIPTION: Ct Stroke Brain Wo Cont CLINICAL HISTORY: 26 years Female, STROKE ALERT TECHNIQUE: Helical CT axial images are obtained from the base of skull through the vertex without IV contrast. Multiplanar reconstruction. This exam was performed according to our departmental dose-opt imization program, which includes automated exposure control, adjustment of the mA and/or kV accordin g to patient size and/or use of iterative reconstruction technique. COMPARISON: None. FINDINGS: BRAIN: No infarcts. No parenchymal hemorrhage, intra-axial mass, mass effect, or midline s hift. No abnormal extra-axial fluid collections. VENTRICLES: Ventricles are normal in size and configuration. No hydrocephalus. CALVARIUM: Bone windows show no skull fracture or calvarial lesions. PARANASAL SINUSES AND MASTOIDS: Mild mucosal thickening floor right maxillary sinus. Otherwise elzbieta r paranasal sinuses. Mastoid air cells are clear. ASPECTS Score for acute stroke: 10. IMPRESSION: 1. No CT evident acute infarct or acute intracranial disease. 2. ASPECT Score 10. . Electronically signed by: Bradly Hernandez MD 10/09/2022 12:13 AM CDT Due to temporary technical issues with the PACS/Fluency reporting system, reports are being signed by the in house radiologist without review as a courtesy to ensure prompt reporting. The interpreting r adiologist is fully responsible for the content of the report.
--- NOTE | 2022-10-10 17:14 | EKG ---
Test Date: 2022-10-09 Test Time: 00:03:21 [employer] Teacher: MEASUREMENT RESULTS: Intervals: Rate: 74 AK: 134 QRSD: 82 QT: 374 QTc: 415 [place]: P: 49 AK: 134 QRS: 68 T: 64 INTERPRETIVE STATEMENTS: Normal sinus rhythm Normal ECG No previous ECG available for comparison Electronically Signed On 10-10-22 17:11:36 CDT by Hugo Tavarez
== END 2022-10-09 01:39 | disposition short-term general hospital (02) ==
LOC: ER 23:34
DX: I63.9 Cerebral infarction, unspecified (principal); R29.703 NIHSS score 3
CPT/HCPCS: 92977; 93005; 85025; 80048; 36415; 83735; 85610; 82947; 80076; 85730; 84484; 70450; 71045; 96374; 99285; J3101

== ENCOUNTER 2023-03-11 19:55 | Inpatient (IN) | payer OTHER ==
--- NOTE | 2023-03-11 20:37 | RAD REPORT ---
EXAM DESCRIPTION: CT - Ct Stroke Brain Wo Cont - 03/11/2023 8:27 pm CLINICAL HISTORY: STROKE ALERT COMPARISON: Ct Stroke Brain Wo Cont dated 10/08/2022; Head angio dated 11/15/2020 TECHNIQUE: Noncontrast head CT images were obtained without IV contrast. Multiplanar reformats were generated and reviewed. All CT scans are performed using dose optimization technique as appropriate and may include automated exposure control or mA/KV adjustment according to patient size. FINDINGS: No intracranial hemorrhage, mass, or edema. Midline structures are unremarkable. Normal ventricular caliber for age. Tan-white matter differentiation is preserved, without evidence of acute infarct. No abnormal extra- axial fluid collections. Mastoid air cells and visualized portions of the paranasal sinuses are clear. No acute bony findings. IMPRESSION: No evidence of an acute intracranial process. The findings were communicated to Baldev Michel on 03/11/2023 at 20:33 hours.
[2023-03-11] MEDS ORDERED: TENECTEPLASE 50 MG/10 ML VIAL IV ONE (21:01)
[2023-03-11 21:05] LABS: Absolute Lymphocytes (CBC) 3.3 K/uL (0.7-4.9); Hematocrit 42.9 % (36.0-45.0); MCV 91.5 fL (80-100); MPV 7.2 fL (7.6-11.3); Platelets 348 thou/uL (152-406); RBC Red Blood Cell Count 4.69 M/uL (3.86-4.86)
[2023-03-11 21:12] LABS: Protime INR 0.95
[2023-03-11 21:27] LABS: ALT/SGPT 45 U/L (13-56); AST/SGOT 20 U/L (15-37); Albumin 3.6 g/dL (3.4-5.0); Alkaline Phosphatase 90 U/L (45-117); BUN Blood Urea Nitrogen 11 mg/dL (7-18); Bicarbonate 27 mEq/L (21-32); Bilirubin Direct < 0.1 mg/dL (0-0.2); Bilirubin Indirect, Calculated ND mg/dL (0.2-0.8); Bilirubin Total 0.3 mg/dL (0.2-1.0); Glomerular Filtration Rate 67 ml/min (=/>90); Glucose Level 99 mg/dL (74-106); Potassium 3.7 mEq/L (3.5-5.1); Protein, Total 8.1 g/dL (6.4-8.2); Sodium Level 136 mEq/L (136-145); Troponin High Sensitivity 4.1 pg/mL (<58.9)
[2023-03-11] MEDS ORDERED: ACETAMINOPHEN 500 MG TAB ONE (22:10)
--- NOTE | 2023-03-11 22:14 | RAD REPORT ---
EXAM DESCRIPTION: CT - Head angio - 03/11/2023 9:41 pm CLINICAL HISTORY: STROKE ALERT COMPARISON: Ct Stroke Brain Wo Cont dated 03/11/2023; Ct Stroke Brain Wo Cont dated 10/08/2022 TECHNIQUE: Axial CT angiography images of the head was performed with multiplanar and maximum intens ity projection reconstructions. Images performed following intravenous administration of 95mL Isovue 370. All CT scans are performed using dose optimization technique as appropriate and may include automated exposure control or mA/KV adjustment according to patient size. FINDINGS: No evidence of large vessel occlusion. No evidence of aneurysm or dissection flap is detec dimas. No flow-limiting stenosis or vascular malformation identified. Antegrade flow is seen in the vertebral arteries. The vertebral arteries are codominant. The visualized dural venous sinuses are grossly patent. IMPRESSION: No evidence of large vessel occlusion or flow-limiting stenosis.
[2023-03-11] MEDS ORDERED: LABETALOL 20 MG/4ML SYRINGE IV ONE (22:15)
--- NOTE | 2023-03-11 22:17 | RAD REPORT ---
EXAM DESCRIPTION: CT - Neck Angio - 03/11/2023 9:41 pm CLINICAL HISTORY: cva COMPARISON: No comparisons TECHNIQUE: Axial CT angiography images of the head was performed with multiplanar and maximum intens ity projection reconstructions. Images performed following intravenous administration of 95mL Isovue 370. All CT scans are performed using dose optimization technique as appropriate and may include automated exposure control or mA/KV adjustment according to patient size. Quantification of carotid stenosis, if any, is performed according to NASCET criteria. FINDINGS: A left aortic arch is identified with normal three vessel configuration of the great vesse ls. No significant flow abnormality is seen of the common carotid bilaterally. No significant stenosis is identified involving the cervical segments of both internal carotid arteri es. Normal flow is seen within both vertebral arteries. IMPRESSION: No significant flow abnormality of the neck vessels is identified. CAROTID STENOSIS REFERENCE USING NASCET CRITERIA: % ICA stenosis = (1 - narrowest ICA diameter/diameter of distal cervical ICA) x 100. Mild - <50% stenosis. Moderate - 50-69% stenosis. Severe - 70-94% stenosis. Near occlusion - 95-99% stenosis. Occluded - 100% stenosis.
--- NOTE | 2023-03-11 22:21 | RAD REPORT ---
EXAM DESCRIPTION: RADChest Single View03/11/2023 8:54 pm CLINICAL HISTORY: cva COMPARISON: Chest Single View dated 10/09/2022; Chest Single View dated 11/15/2020; Chest Pa And Lat (2 Views) dated 08/27/2020; Chest Single View dated 07/08/2020 TECHNIQUE: Portable AP view of the chest. FINDINGS: The lungs are clear. No pneumothorax or effusion. The cardiomediastinal contours are unre markable. IMPRESSION: No acute cardiopulmonary process.
--- NOTE | 2023-03-11 22:51 | EDPHYS ---
Physician Documentation [facility] Name: Anum Figueroa Age: 27 yrs Sex: Female : 1995 Arrival Date: 03/11/2023 Time: 19:55 Bed 16 Private MD: ED Physician Baldev Michel HPI: 03/11 23:03 This 27 yrs old Female presents to ER via Ambulatory with complaints of Chest rt Pain, Numbness Of Face, High Blood Pressure, Vomiting, HISTORY OF TIA. 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 Patient presents to the ED rt with a left-sided numbness, left arm weakness described as heaviness that she first noticed about 45 minutes ago, last known normal was 1 hour ago. Denies other acute complaints at this time, symptoms are moderate in severity, no other aggravating or alleviating factors.. Historical: - Home Meds: 20:20 aspirin 81 mg Oral chew 1 tab once daily [Active]; rv - PMHx: 20:20 TIA; rv - PSHx: 20:20 None; rv - Immunization history:: Adult Immunizations up to date. - Social history:: Smoking status: unknown. ROS: 23:03 Constitutional: Negative for fever, chills, and weight loss, Cardiovascular: Negative rt for chest pain, palpitations, and edema, Respiratory: Negative for shortness of breath, cough, wheezing, and pleuritic chest pain, Abdomen/GI: Negative for abdominal pain, nausea, vomiting, diarrhea, and constipation, MS/Extremity: Negative for injury and deformity, Skin: Negative for injury, rash, and discoloration, Psych: Negative for depression, anxiety, suicide ideation, homicidal ideation, and hallucinations, 23:03 Neuro: Positive for numbness, weakness, Exam: 23:03 Constitutional: This is a well developed, well nourished patient who is awake, alert, rt and in no acute distress. Head/Face: Normocephalic, atraumatic. Chest/axilla: Normal chest wall appearance and motion. Nontender with no deformity. No lesions are appreciated. Cardiovascular: Regular rate and rhythm with a normal S1 and S2. No gallops, murmurs, or rubs. Normal PMI, no JVD. No pulse deficits. Respiratory: Lungs have equal breath sounds bilaterally, clear to auscultation and percussion. No rales, rhonchi or wheezes noted. No increased work of breathing, no retractions or nasal flaring. Abdomen/GI: Soft, non-tender, with normal bowel sounds. No distension or tympany. No guarding or rebound. No evidence of tenderness throughout. Skin: Warm, dry with normal turgor. Normal color with no rashes, no lesions, and no evidence of cellulitis. MS/ Extremity: Pulses equal, no cyanosis. Neurovascular intact. Full, normal range of motion. Psych: Awake, alert, with orientation to person, place and time. Behavior, mood, and affect are within normal limits. 23:03 ECG was reviewed by the Attending Physician. 23:03 Neuro: Slight left-sided facial droop, sensory deficits on the left face, left arm, left leg, drift noted on the left leg, strength otherwise intact, cranial nerves otherwise intact., Vital Signs: 20:17 BP 142 / 85; Pulse 89; Resp 17; Temp 98; Pulse Ox 100% on R/A; rv 20:45 Weight 110.3 kg; jb4 21:45 BP 175 / 109; Pulse 75; Resp 16; Pulse Ox 100% on R/A; jb4 NIH Stroke Scale Scores: 20:45 NIHSS Score: 2 jb4 MDM: 20:14 Patient medically screened. rt 23:05 Differential diagnosis: CVA, TIA, Cole's palsy, paresthesia. Data reviewed: vital rt signs, nurses notes, lab test result(s), EKG, radiologic studies. Consideration of Admission/Observation Patient was admitted/placed on observation. Management of patient was discussed with the following: Hospitalist: Agrees to admit. I considered the following discharge prescriptions or medication management in the emergency department Medications were administered in the Emergency Department. See MAR. Independent interpretation of the following test(s) in the Emergency Department CT Scan: My interpretation is No hemorrhage seen on interpretation of CT scan images. Discussion of test interpretation with radiology: I had a discussion with radiology regarding a test interpretation. No hemorrhage seen. Care significantly affected by the following chronic conditions: Prior CVA/TIA. Counseling: I had a detailed discussion with the patient and/or guardian regarding the historical points, exam findings, and any diagnostic results supporting the discharge/admit diagnosis, lab results, radiology results, the need for further work-up and treatment in the hospital. Response to treatment: the patient's symptoms have markedly improved after treatment. 03/11 20:20 Order name: Basic Metabolic Panel; Complete Time: 21:29 rt 03/11 20:20 Order name: CBC with Diff; Complete Time: 21:29 rt 03/11 20:20 Order name: Hepatic Function; Complete Time: 21:29 rt 03/11 20:20 Order name: High Sensitivity Troponin; Complete Time: 21:29 rt 03/11 20:20 Order name: Magnesium; Complete Time: 21:29 rt 03/11 20:20 Order name: Protime (+inr); Complete Time: 21:29 rt 03/11 20:20 Order name: Ptt, Activated; Complete Time: 21:29 rt 03/11 20:55 Order name: Glucose, Ancillary Testing; Complete Time: 21:29 EDMS 03/11 23:25 Order name: Lipid Profile EDMS 03/11 23:25 Order name: Lipid Profile EDWV 03/11 20:20 Order name: CT Stroke Brain w/o Contrast; Complete Time: 21:29 rt 03/11 20:20 Order name: Stroke CXR 1 View; Complete Time: 22:21 rt 03/11 20:35 Order name: CT Head Angio; Complete Time: 22:21 rt 03/11 20:35 Order name: CT Neck Angio; Complete Time: 22:21 rt 03/11 20:20 Order name: EKG; Complete Time: 20:21 rt 03/11 23:25 Order name: CONS Physician Consult EDWV 03/11 20:20 Order name: Accucheck; Complete Time: 20:54 rt 03/11 20:20 Order name: Cardiac monitoring; Complete Time: 20:54 rt 03/11 20:20 Order name: EKG - Nurse/Tech; Complete Time: 20:54 rt 03/11 20:20 Order name: IV Saline Lock; Complete Time: 20:54 rt 03/11 20:20 Order name: Labs collected and sent; Complete Time: 20:54 rt 03/11 20:20 Order name: NPO; Complete Time: 20:54 rt 03/11 20:20 Order name: O2 Per Protocol; Complete Time: 20:54 rt 03/11 20:20 Order name: O2 Sat Monitoring; Complete Time: 20:54 rt 03/11 20:20 Order name: Stroke Swallow Screen; Complete Time: 20:54 rt EC:03 Rate is 75 beats/min. Rhythm is regular, Normal Sinus Rhythm with No ectopy. QRS Spring rt is Normal. LA interval is normal. QRS interval is normal. QT interval is normal. No Q waves. T waves are Normal. No ST changes noted. Interpreted by me. Administered Medications: 20:53 Drug: TNK FOR STROKE - Tenecteplase IV 0.25 mg/kg IV at per protocol once; MAX jb4 DOSE 25 mg, IVP over 5 seconds {Co-Signature: vc1 (Roya Mitchell RN).} Route: IV; Rate: per protocol; Site: left antecubital; 21:57 Drug: Acetaminophen PO 1000 mg PO once Route: PO; jb4 21:59 Drug: Labetalol IV 10 mg IV at calculated rate once Route: IV; Rate: calculated rate; jb4 Site: left antecubital; Disposition: 23:05 Critical Care:. rt Disposition Summary: 03/11/23 22:50 Hospitalization Ordered Notes: Hospitalization Status: Observation rt Provider: David Garcia rt Condition: Fair rt Problem: new rt Symptoms: have improved rt Bed/Room Type: Standard rt Location: [facility] ER HOLD(03/11/23 23:44) Room Assignment: ERHOLD-(03/11/23 23:44) cg Diagnosis - Cerebrovascular accident rt Forms: - Medication Reconciliation Form rt - SBAR form rt - Leadership Thank You Letter rt Critical care time excluding procedures: 23:05 Critical care time: Bedside Care: 30 minutes, Consultation: 5 minutes. Total time: 35 rt minutes NIH Stroke Scale - NIH Stroke Score Date: 03/11/2023 Time: 20:45 Total Score = 2 10. Dysarthria (speech clarity - read or repeat words) - 0(Normal) 11. Extinction and Inattention (visual/tactile/auditory/spatial/personal) - 0(No abnormality) 1a. Level of Consciousness (LOC) - 0(Alert) 1b. Level of Consciousness (LOC) (Month \T\ Age) - 0(Both) 1c. LOC Commands (Open \T\ Closes Eyes/Brand Analyst) - 0(Both) 2. Best Gaze (Lateral Gaze Paresis) - 0(Normal) 3. Visual Field Loss - 0(No visual loss) 4. Facial Palsy - 0(Normal) 5a. Left Arm: Motor (10-second hold) - 1(Drift) 5b. Right Arm: Motor (10-second hold) - 0(No drift) 6a. Left Leg: Motor (5-second hold - always test supine) - 0(No drift) 6b. Right Leg: Motor (5-second hold - always test supine) - 0(No drift) 7. Limb Ataxia (finger/nose \T\ heel/tobias - test with eyes open) - 0(Absent) 8. Sensory Loss (pinprick arms/legs/face) - 1(Mild to moderate loss) 9. Best Language: Aphasia (description/naming/reading) - 0(No aphasia) Initials: jb4 Signatures: Dispatcher [employer] EDMS Alma Delia Neal, PATIENT CARE DIRECTOR-C PATIENT CARE DIRECTOR-Csnw Rosa Drummond, SERG RN cg Shankar Cabrales RN RN jb4 Chacho Jackson RN RN rv Baldev Michel MD MD rt CalcRoya ireland RN vc1 Corrections: (The following items were deleted from the chart) 23:44 22:50 Intensive Care Unit rt cg 23:44 22:50 rt cg
--- NOTE | 2023-03-11 22:51 | ER ---
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 left arm feels tired as described by the patient. with hx of 2 TIA with thrombolytics. Coronavirus screen: At this time, the client does not indicate any symptoms associated with coronavirus-19. Ebola Screen: No symptoms or risks identified at this time. Initial Sepsis Screen: Does the patient meet any 2 criteria? No. Patient's initial sepsis screen is negative. Does the patient have a suspected source of infection? No. Patient's initial sepsis screen is negative. Risk Assessment: Do you want to hurt yourself or someone else? Patient reports no desire to harm self or others. Onset of symptoms was March 11, 2023. 20:17 Method Of Arrival: Ambulatory rv 20:17 Acuity: NATALI 2 rv Triage Assessment: 20:20 General: Appears comfortable, Behavior is calm, cooperative. Pain: Denies pain. Neuro: rv Level of Consciousness is awake, alert, obeys commands, Oriented to person, place, time, situation, Weakness in left arm(s) Numbness in face and left arm. Cardiovascular: Capillary refill < 3 seconds Patient's skin is warm and dry. Respiratory: Airway is patent Respiratory effort is even, unlabored. GI: No signs and/or symptoms were reported involving the gastrointestinal system. : No signs and/or symptoms were reported regarding the genitourinary system. Derm: Skin is intact, is healthy with good turgor. Historical: - Home Meds: 20:20 aspirin 81 mg Oral chew 1 tab once daily [Active]; rv - PMHx: 20:20 TIA; rv - PSHx: 20:20 None; rv - Immunization history:: Adult Immunizations up to date. - Social history:: Smoking status: unknown. Screenin:21 [facility] ED Fall Risk Assessment (Adult) History of falling in the last 3 months, rv including since admission No falls in past 3 months (0 pts) Score/Fall Risk Level 3 or more points = High Risk Oriented to surroundings, Maintained a safe environment, Educated pt \T\ family on fall prevention, incl call for assistance when getting out of bed, Assessed \T\ reinforced patient's understanding of fall precautions. Abuse screen: Denies threats or abuse. Denies injuries from another. Nutritional screening: No deficits noted. Tuberculosis screening: No symptoms or risk factors identified. Assessment: 20:45 VAN Scoring: Arm Drift: Minor drift Visual Disturbance: No visual disturbance noted. jb4 Aphasia: No aphasia noted. Neglect: No neglect noted. 20:45 [facility] Swallow Protocol Brief Cognitive Screen What is your name? Normal, Where are you jb4 right now? Normal, What year is it? Normal. Oral Mechanism Examination Facial Symmetry: Normal, Motion: Normal, Lip Closure: Normal, Oral Mechanism Result: Normal. 3 oz Water Swallow Challenge: Pt able to drink all water without stopping, coughing, choking or throat clearing: Yes. TNKase (Tenecteplase) Screening: Indications: Definite evidence of stroke, ischemic, embolic, or hypertensive: Yes. Treatment will start within 4.5 hours onset of symptoms: Yes. No evidence of intracranial hemorrhage or CT of head and no evidence of peripheral hemorrhage or recent CVA: Yes. Consent for thrombolytic therapy: Yes. General: Appears in no apparent distress. comfortable, Behavior is calm, cooperative, appropriate for age. Pain: Denies pain. Neuro: Level of Consciousness is awake, alert, Oriented to person, place, time, situation. Cardiovascular: Patient's skin is warm and dry. Respiratory: Airway is patent Respiratory effort is even, unlabored, Respiratory pattern is regular, symmetrical. GI: No signs and/or symptoms were reported involving the gastrointestinal system. : No signs and/or symptoms were reported regarding the genitourinary system. EENT: No signs and/or symptoms were reported regarding the EENT system. Derm: Skin is intact, Skin is pink, warm \T\ dry. Musculoskeletal: Circulation, motion, and sensation intact. Range of motion: intact in all extremities. 21:51 Reassessment: Patient appears in no apparent distress at this time. Patient and/or jb4 family updated on plan of care and expected duration. Pain level reassessed. Patient is alert, oriented x 3, equal unlabored respirations, skin warm/dry/pink. 22:00 Reassessment: Patient appears in no apparent distress at this time. Patient and/or jb4 family updated on plan of care and expected duration. Pain level reassessed. Patient is alert, oriented x 3, equal unlabored respirations, skin warm/dry/pink. Vital Signs: 20:17 BP 142 / 85; Pulse 89; Resp 17; Temp 98; Pulse Ox 100% on R/A; rv 20:45 Weight 110.3 kg; jb4 21:45 BP 175 / 109; Pulse 75; Resp 16; Pulse Ox 100% on R/A; jb4 NIH Stroke Scale Scores: 20:45 NIHSS Score: 2 jb4 ED Course: 20:07 Patient arrived in ED. gm2 20:08 Alma Delia Neal FNP-C [facility]. snw 20:08 Baldev Michel MD is Attending Physician. snw 20:11 Baldev Michel MD is Attending Physician. rt 20:20 Triage completed. rv 20:20 Arm band placed on right wrist. rv 20:21 Patient has correct armband on for positive identification. Client placed on continuous rv cardiac and pulse oximetry monitoring. NIBP monitoring applied. director of occupational health on. 20:21 No provider procedures requiring assistance completed. rv 20:29 CT Stroke Brain w/o Contrast In Process Unspecified. EDMS 20:44 Initial lab(s) drawn, by me, sent to lab. Inserted saline lock: 18 gauge in left jb4 antecubital area, using aseptic technique. Blood collected. 20:44 Patient maintains SpO2 saturation greater than 95% on room air. jb4 20:56 Stroke CXR 1 View In Process Unspecified. EDMS 21:43 CT Head Angio In Process Unspecified. EDMS 21:43 CT Neck Angio In Process Unspecified. EDMS 22:35 Shankar Cabrales, RN is Primary Nurse. jb4 22:49 David Garcia MD is Hospitalizing Provider. rt Administered Medications: 20:53 Drug: TNK FOR STROKE - Tenecteplase IV 0.25 mg/kg IV at per protocol once; MAX jb4 DOSE 25 mg, IVP over 5 seconds {Co-Signature: vc1 (Roya Mitchell RN).} Route: IV; Rate: per protocol; Site: left antecubital; 21:57 Drug: Acetaminophen PO 1000 mg PO once Route: PO; jb4 21:59 Drug: Labetalol IV 10 mg IV at calculated rate once Route: IV; Rate: calculated rate; 4 Site: left antecubital; Medication: 20:21 VIS not applicable for this client. rv Outcome: 22:50 Decision to Hospitalize by Provider. rt 03/12 16:13 Patient left the ED. jl7 NIH Stroke Scale - NIH Stroke Score Date: 03/11/2023 Time: 20:45 Total Score = 2 10. Dysarthria (speech clarity - read or repeat words) - 0(Normal) 11. Extinction and Inattention (visual/tactile/auditory/spatial/personal) - 0(No abnormality) 1a. Level of Consciousness (LOC) - 0(Alert) 1b. Level of Consciousness (LOC) (Month \T\ Age) - 0(Both) 1c. LOC Commands (Open \T\ Closes Eyes/Fuel Operator) - 0(Both) 2. Best Gaze (Lateral Gaze Paresis) - 0(Normal) 3. Visual Field Loss - 0(No visual loss) 4. Facial Palsy - 0(Normal) 5a. Left Arm: Motor (10-second hold) - 1(Drift) 5b. Right Arm: Motor (10-second hold) - 0(No drift) 6a. Left Leg: Motor (5-second hold - always test supine) - 0(No drift) 6b. Right Leg: Motor (5-second hold - always test supine) - 0(No drift) 7. Limb Ataxia (finger/nose \T\ heel/tobias - test with eyes open) - 0(Absent) 8. Sensory Loss (pinprick arms/legs/face) - 1(Mild to moderate loss) 9. Best Language: Aphasia (description/naming/reading) - 0(No aphasia) Initials: jb4 Signatures: Dispatcher [employer] EDMS Alma Delia Neal, FORM BUILDER-C FORM BUILDER-Csnw Shankar Cabrales, SERG RN jb4 Ilda Welsh RN RN jl7 Chacho Jackson RN RN rv Baldev Michel MD MD rt Viktoria Rizo gm2 Roya Mitchell RN vc1
[2023-03-11] MEDS ORDERED: ONDANSETRON 4 MG/2 ML VIAL IV PRN (23:19)
[2023-03-11] MEDS ORDERED: ACETAMINOPHEN 325 MG TABLET PO PRN (23:19)
--- NOTE | 2023-03-11 23:19 | P.HP ---
Certification for Inpatient Patient admitted to: Observation With expected LOS: <2 Midnights Practitioner: I am a practitioner with admitting privileges, knowledge of patient current condition, hospital course, and medical plan of care. Services: Services provided to patient in accordance with Admission requirements found in Title 42 Section 412.3 of the Code of Federal Regulations Patient History Date of Service: 03/12/23 Reason for admission: TIA/CVA History of Present Illness: 27-year-old morbidly obese female was evaluated for episode of tingling and numbness in the left upper extremity and face. She reported that she has not still issues with his multiple neurologic symptoms in the past especially around the time that she had COVID-19 disease infection. She was at that time worked up and there was no major finding however she had a repeat episode of tingling and numbness in the left upper extremity and face today. No report of deep double vision, inability to speak well, dizzy spells. She was evaluated in the ED and there is significant concern for active neurologic symptoms so she was given tenecteplase for this issue. There was no issue with overtly elevated blood pressure and post tenecteplase administration she reports that she feels about 40% improved. She was asked to be admitted on observation for workup and treatment of CVA/TIA. Allergies No Known Allergies Allergy (Unverified 02/27/12 19:04) Home Medications: Aspirin [Aspirin EC 81 MG] 81 mg PO DAILY 07/08/20 Apixaban [Eliquis] 2.5 mg PO BID #60 tablet 07/09/20 Ascorbic Acid [Vitamin C*] 1 tab PO TID 07/09/20 Atorvastatin Calcium [Lipitor] 40 mg PO BEDTIME #30 tab 07/09/20 Zinc 50 mg PO BID 07/09/20 - Past Medical/Surgical History -: COVID-19 pneumonia with hypoxemia - Social History Alcohol use: Yes CD- Drugs: No Review of Systems General: Unremarkable Eyes: Unremarkable ENT: Unremarkable Respiratory: Unremarkable Cardiovascular: Unremarkable Gastrointestinal: Unremarkable Musculoskeletal: Unremarkable Integumentary: Unremarkable Neurological: Weakness, Numbness Physical Examination - Physical Exam General: Alert, Oriented x3 HEENT: Atraumatic Neck: Supple Respiratory: Normal air movement Cardiovascular: Regular rate/rhythm, Normal S1 S2 Gastrointestinal: Soft and benign Musculoskeletal: No swelling Neurological: Normal speech, Cranial nerves 3-12 intact - Studies Laboratory Data (last 24 hrs) 03/11/23 03/11/23 03/11/23 20:44 20:44 20:44 WBC 10.70 Hgb 14.9 Hct 42.9 Plt Count 348 PT 10.5 INR 0.95 APTT 37.0 H Sodium 136 Potassium 3.7 BUN 11 Creatinine 1.14 H Glucose 99 Magnesium 2.0 Total Bilirubin 0.3 AST 20 ALT 45 Alkaline Phosphatase 90 Assessment and Plan - Plan TIA/CVA: Patient has significant neurologic symptoms and CT of the head and neck and CT of the head done showed no acute abnormality. She had tenecteplase administered. Will continue every 2 hours neurovascular checks. Will continue routine monitoring of vital signs per protocol post administration of tenecteplase. Will obtain echocardiogram, lipid panel and have neurology evaluate patient. Will continue telemetry to rule out arrhythmias. Low-dose aspirin therapy to be continued as per protocol. Will follow clinical symptomatology closely. Prophylaxis: Patient is post administration of tenecteplase, will continue on SCDs for DVT prophylaxis CODE STATUS: Full code Disposition: We will continue to workup neurologic symptoms and have her discharged when she is cleared by neurology. Discharge Plan: Home - Advance Directives Does patient have a Living Will: No Does patient have a Durable POA for Healthcare: No
[2023-03-12] MEDS: NA CHLORIDE 0.9% 1,000 ML IV SCH ×3 (01:37→16:36)
[2023-03-12] MEDS ORDERED: NA CHLORIDE 0.9% 1,000 ML ONE (01:44)
[2023-03-12] MEDS ORDERED: NA CHLORIDE 0.9% 500 ML ONE (03:27)
[2023-03-12] MEDS ORDERED: ASPIRIN EC 81 MG TAB PO SCH (09:00)
[2023-03-12] MEDS ORDERED: ASPIRIN EC 81 MG TAB PO ONE (09:43)
[2023-03-12] MEDS ORDERED: ACETAMINOPHEN 325 MG TABLET ONE (09:43)
--- NOTE | 2023-03-12 12:44 | P.PN ---
Subjective Date of Service: 03/12/23 Chief Complaint: TIA/CVA Pt is resting comfortably in bed. She received tPA in the ER on 03/11/23 at 1030pm. The numbness has resolved. Will repeat CT head after 24hrs from time of tPA before we give aspirin. No other complaints. Review of Systems 10-point ROS is otherwise unremarkable General: Unremarkable Eyes: Unremarkable ENT: Unremarkable Respiratory: Unremarkable Cardiovascular: Unremarkable Gastrointestinal: Unremarkable Genitourinary: Unremarkable Musculoskeletal: Unremarkable Integumentary: Unremarkable Neurological: Unremarkable Lymphatics: Unremarkable Physical Examination - Vital Signs Temperature: 98 F Blood Pressure: 152/91 Pulse: 69 Respirations: 15 Pulse Ox (%): 99 - Physical Exam General: Alert, In no apparent distress, Oriented x3 HEENT: Atraumatic, Normocephalic, PERRLA Neck: Supple, 2+ carotid pulse no bruit Respiratory: Clear to auscultation bilaterally, Normal air movement Cardiovascular: No edema, Normal pulses, Regular rate/rhythm, Normal S1 S2 Capillary refill: <2 Seconds Gastrointestinal: Normal bowel sounds, Soft and benign, Non-distended Musculoskeletal: No clubbing, No swelling Integumentary: No rashes, No breakdown Neurological: Normal gait, Normal speech, Normal strength at 5/5 x4 extr Lymphatics: No axilla or inguinal lymphadenopathy - Studies Laboratory Data (last 24 hrs) 03/11/23 03/11/23 03/11/23 20:44 20:44 20:44 WBC 10.70 Hgb 14.9 Hct 42.9 Plt Count 348 PT 10.5 INR 0.95 APTT 37.0 H Sodium 136 Potassium 3.7 BUN 11 Creatinine 1.14 H Glucose 99 Magnesium 2.0 Total Bilirubin 0.3 AST 20 ALT 45 Alkaline Phosphatase 90 Assessment And Plan - Plan CVA symptoms: resolved s/p tPA. CT head is unremarkable. CTA head and neck are unremarkable. Will follow up repeat CT head and start aspirin 24hrs after tPA. LDL is 95. Total cholestrol is 176. Will monitor BP and follow up Echo. DVT ppx: SCD Code: full Dispo: pending hospital course. Discharge Plan: Home Plan to discharge in: 24 Hours - Code Status/Comfort Care Code Status Assessed: Yes
[2023-03-12] MEDS ORDERED: LORazepam 2 MG/ML VIAL IV ONE (21:14)
[2023-03-12] MEDS ORDERED: LORazepam 2 MG/ML VIAL ONE (21:55)
[2023-03-12] MEDS ORDERED: LORAZEPAM 0.5 MG TABLET PO PRN (23:33)
[2023-03-13] MEDS: NA CHLORIDE 0.9% 1,000 ML IV SCH ×3 (02:36→15:45)
[2023-03-13 04:21] VITALS: O2SAT 100
[2023-03-13 05:17] LABS: Hematocrit 41.1 % (36.0-45.0); Lymphocytes % 31.4 % (15.3-44.8); MCV 92.3 fL (80-100); MPV 7.1 fL (7.6-11.3); Platelets 324 thou/uL (152-406); RBC Red Blood Cell Count 4.45 M/uL (3.86-4.86)
--- NOTE | 2023-03-13 05:18 | P.PN ---
Date of Service: 03/13/23 Subjective: Physical Exam: Vitals reviewed GEN: Alert, oriented, NAD HEENT: Normal conjunctiva, sclera anicteric CV: Regular rate and rhythm, no edema Pulm: Nonlabored respirations on room air, clear bilaterally ABD: Soft, nontender, nondistended MSK: no joint tenderness Integumentary: no rashes Neuro: Normal speech, normal affect Problem List: TIA vs CVA Plan: CT head (03/11) negative for any acute intracranial abnormalities CTA head/neck (03/11) both negative repeat CT head (03/12): negative for any acute intracranial abnormalities s/p tPA in the ER on 03/11/23 neuro checks Q2H Neurology consulted Monitor on tele, monitor vitals Echo ordered PRN ativan continue IV fluids numbness / tingling improved
[2023-03-13] MEDS ORDERED: LORazepam 2 MG/ML VIAL ONE (06:00)
[2023-03-13] MEDS ORDERED: LORAZEPAM 0.5 MG TABLET ONE (06:02)
[2023-03-13 06:29] VITALS: BMI 49.5
--- NOTE | 2023-03-13 14:36 | RAD REPORT ---
EXAM DESCRIPTION: CT - Head Brain Wo Cont - 03/12/2023 11:21 pm CLINICAL HISTORY: 24H post TNK COMPARISON: 03/11/2023 TECHNIQUE: Axial CT of the head obtained from the skull apex to the skull base without contrast. Thi s exam was performed according to our departmental dose-optimization program, which includes automate d exposure control, adjustment of the mA and/or kV according to patient size and/or use of iterative reconstruction technique. FINDINGS: No acute intracranial hemorrhage identified. No mass, mass effect, shift of the midline, a bnormal extra-axial fluid collection or CT evidence of acute ischemic change identified. Specifically , no byrne-white matter differentiation loss to confirm site of acute/subacute ischemic change. The ve ntricular system is unremarkable. No acute abnormalities of the supratentorial white matter, basal ganglia, cerebellum, or brainstem. Mucosal thickening of the paranasal sinuses. Mastoid air cells are well aerated. No skull fracture id entified. Visualized orbits and globes are unremarkable. IMPRESSION: No acute intracranial abnormality identified. Electronically signed by: Peter Becker DO 03/12/2023 11:14 PM LACE INSPECTOR M Due to temporary technical issues with the PACS/Fluency reporting system, reports are being signed by the in house radiologist without review as a courtesy to ensure prompt reporting. The interpreting r adiologist is fully responsible for the content of the report.
--- NOTE | 2023-03-13 15:44 | RAD REPORT ---
EXAM DESCRIPTION: MRI - Brain Wo Cont - 03/13/2023 3:31 pm CLINICAL HISTORY: CVA numbness COMPARISON: Head CT March 12, 2023 TECHNIQUE: Axial, sagittal, and coronal magnetic resonance images of the brain were obtained. FINDINGS: No abnormal signal within the brain Diffusion-weighted/ADC mapping does not reveal evidence of acute infarction. The ventricles are normal caliber. An extra-axial fluid collection is not noted. Fluid within the sinuses/mastoids is not seen IMPRESSION: No acute intracranial abnormality noted
[2023-03-13 15:47] VITALS: TEMP 97.7
[2023-03-13 17:00] VITALS: BP 142/88
--- NOTE | 2023-03-14 10:45 | ECHO ---
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 NORMAL RIGHT VENTRICULAR SIZE AND FUNCTION TECHNOLOGIST: JUAN ALBERTO PICKERING
--- NOTE | 2023-03-14 13:51 | EKG ---
Test Date: 2023-03-11 Test Time: 20:35:41 Visual Associate: MIRYAM MEASUREMENT RESULTS: Intervals: Rate: 75 [place]: 128 QRSD: 80 QT: 362 QTc: 404 [place]: P: 49 KS: 128 QRS: 70 T: 65 INTERPRETIVE STATEMENTS: Normal sinus rhythm Normal ECG Compared to ECG 10/09/2022 00:03:21 No significant changes Electronically Signed On 03-14-23 13:42:07 [employer]HER FOREMAN by Hugo Tavarez
== END 2023-03-13 16:53 | disposition home or self-care (01) | DRG 63 ==
LOC: ER 19:55 → ERHOLD 23:19 → 3RD-ICU 03-12 15:42
PROVIDERS: ADMIT Internal Medicine Nephrology; ATTEND Hospitalist
DX: I63.9 Cerebral infarction, unspecified (principal); G83.24 Monoplegia of upper limb affecting left nondominant side; R29.810 Facial weakness; R29.702 NIHSS score 2; Z79.82 Long term (current) use of aspirin; Z79.01 Long term (current) use of anticoagulants; Z86.73 Personal history of transient ischemic attack (TIA), and cerebral infarction without residual deficits; Z79.899 Other long term (current) drug therapy
CPT/HCPCS: 36415; 70450; 70496; 70498; 70551; 71045; 80048; 80061; 80076; 82947; 83735; 84484; 85025; 85610; 85730; 92977; 93005; 93306; 96374; 96375; 99291; 99292; J3101; J7030; J7040; Q9967